=== PATIENT | male | born 1945 | race Caucasian/White ===

== ENCOUNTER 2017-02-08 16:38 | Emergency (ER) | payer MEDICARE, MEDICAID ==
[2017-02-08] MEDS ORDERED: Polyethylene Glycol 3350 Powder 17 GM Packet PO ONE (17:11)
[2017-02-08] MEDS ORDERED: Acetaminophen/oxyCODONE 325-5 MG Tab PO ONE (17:11)
--- NOTE | 2017-02-08 17:22 | EDM.PDOC ---
ED HPI LOWER BACK PAIN/INJURY - General Chief Complaint: Back Pain or Injury Stated Complaint: COMPLETE BACK PAIN Time Seen by Provider: 02/08/17 17:05 Source: Reports: Patient, Old records, Provider History Limitations: Reports: Other (poor historian) - History of Present Illness INITIAL COMMENTS - FREE TEXT/NARRATIVE: 71 yo male was seen in urgent care last Sunday after a fall that resulted in a new L3 compression fx. Was given #20 Percocet tablets with instructions for use. Has taken only 2 tablets since then yet comes into the ER today stating he still has pain now. Last BM 2 days ago. No nausea. Didn't call his primary care provider for follow up. The PHILOSOPHY INSTRUCTOR who saw him had been trying to contact this man for follow up, but he was not answering his phone. She was successful in reaching his daughter who felt he may be drinking heavily of ETOH. Symptom Onset Date: 02/02/17 Timing/Duration: Reports: Day(s): Location: Reports: lower Quality: Reports: Ache Severity: moderate Place: home Improves with: Reports: Rest Worsens with: Reports: Movement Context: Reports: fall Associated Symptoms: Reports: Denies symptoms Treatment(s) CHASER APPRENTICE: Reports: Other (see below) (none) - Related Data Allergies/ADRs: Allergies Allergy/AdvReac Type Severity Reaction Status Date / Time No Known Allergies Allergy Verified 08/10/16 18:16 Home Meds: Home Meds Hydrocodone/Acetaminophen [Hydrocodon-Acetaminophen 5-325] 1 each PO Q4HR PRN # 10 tablet 08/11/16 [Rx] Levofloxacin [Levaquin] 500 mg PO Q24H #10 tablet 08/11/16 [Rx] Past Medical History HEENT History: Reports: Impaired vision Cardiovascular History: Reports: SOB on exertion Respiratory History: Reports: COPD, Pneumonia, recurrent, SOB Gastrointestinal History: Reports: Other (see below) Other Gastrointestinal History: has abdominal surgery not sure why, had some GI + rectal bleeding, Genitourinary History: Reports: Other (see below) Other Genitourinary History: bladder infection 2 years ago Musculoskeletal History: Reports: Arthritis, Back pain, chronic, Other (see below) Other Musculoskeletal History: at times [place] shoulder pain, hx of osteomyelitis Endocrine/Metabolic History: Reports: Osteoporosis Other Endocrine/Metabolic History: had in past - Infectious Disease History Infectious Disease History: Reports: Chicken pox, Measles - Past Surgical History HEENT Surgical History: Reports: Tonsillectomy Cardiovascular Surgical History: Reports: None GI Surgical History: Reports: Other (see below) Other GI Surgeries/Procedures: surg for stomach ulcer, spleenectomy Endocrine Surgical History: Reports: None Other Neurological Surgeries/Procedures: has had lower back surgery Musculoskeletal Surgical History: Reports: Shoulder surgery Other Musculoskeletal Surgeries/Procedures:: rib removal L-lower,jose in back, stanford rotator cuff surgery Social & Family History - Family History HEENT: Reports: Cataract Respiratory: Reports: Asthma Musculoskeletal: Reports: Arthritis Neurological: Reports: None - Tobacco Use Smoking Status *Q: Current Every Day Smoker Years of Tobacco use: 20 Packs/Tins Daily: 1 Used Tobacco, but Quit: No Second Hand Smoke Exposure: Yes - Caffeine Use Caffeine Use: Reports: Coffee - Alcohol Use Days Per Week of Alcohol Use: 1 Number of Drinks Per Day: 2 Total Drinks Per Week: 2 - Recreational Drug Use Recreational Drug Use: No ED ROS GENERAL - Review of Systems Review Of Systems: See Below Constitutional: Reports: no symptoms HEENT: Reports: No symptoms Respiratory: Reports: No Symptoms Cardiovascular: Reports: No symptoms Endocrine: Reports: no symptoms GI/Abdominal: Reports: Constipation (mild) : Reports: no symptoms Musculoskeletal: Reports: back pain (low) Skin: Reports: no symptoms Neurological: Reports: No Symptoms ED EXAM,LOWER BACK PAIN/INJURY - Physical Exam Exam: See Below Exam Limited By: No limitations General Appearance: alert, WD/WN, no apparent distress, other (disheveled) Ears: normal external exam, normal canal, hearing grossly normal Nose: normal inspection, normal mucosa, no blood Throat/Mouth: Normal inspection, Normal lips Head: atraumatic, normocephalic Neck: normal inspection Respiratory/Chest: no respiratory distress, lungs clear, normal breath sounds, no accessory muscle use Cardiovascular: regular rate, rhythm, no edema GI/Abdominal: soft, non tender Back Exam: normal inspection, vertebral tenderness (lumbar spine) Extremities: normal inspection, normal range of motion, non-tender, no pedal edema Neurological: alert, normal mood/affect, CN II-XII intact, no motor/sensory deficits, oriented x 3, other (poor judgement) Psychiatric: normal affect, normal mood Skin Exam: Warm, Dry, Intact, Normal color, No rash Lymphatic: no adenopathy Course - Vital Signs Text/Narrative:: Percocet 1 po, Miralax 1 dose po Social service consult ordered. - Orders/Labs/Meds Orders: Active Orders 24 hr Category Date Time Status Consult to [facility] [CONS] Routine Cons 02/08/17 17:12 Ordered Meds: Medications Discontinued Medications Generic Name Dose Route Start Last Admin Trade Name Herberth PRN Reason Stop Dose Admin Oxycodone/Acetaminophen 1 tab 02/08/17 17:11 Percocet 325-5 Mg PO 02/08/17 17:12 ONETIME ONE Polyethylene Glycol 17 gm 02/08/17 17:11 Miralax PO 02/08/17 17:12 ONETIME ONE Departure - Departure Time of Disposition: 17:30 Disposition: Home, Self-Care 01 Condition: fair Clinical Impression: Poor compliance Compression fx, lumbar spine Qualifiers: Encounter type: subsequent encounter Fracture healing: with routine healing Qualified Code(s): S32.000D - Wedge compression fracture of unspecified lumbar vertebra, subsequent encounter for fracture with routine healing Osteopenia Qualifiers: Osteopenia location: spine Qualified Code(s): M85.88 - Other specified disorders of bone density and structure, other site Referrals: Andrew Quick MD [Primary Care Provider] - Care Plan Goals: Take acetaminophen or Percocet as directed for pain relief. See your doctor tomorrow or Sunday for recheck, call for an appt. A social work program coordinator will be contacting you to see if you need any assistance, please answer the phone if she calls. Take Miralax one dose daily to prevent constipation from your pain medicine. - My Orders Last 24 Hours: My Active Orders 02/08/17 17:12 Consult to [facility] [CONS] Routine - Assessment/Plan Last 24 Hours: My Active Orders 02/08/17 17:12 Consult to [facility] [CONS] Routine
[2017-02-08 18:16] VITALS: BP 173/91
== END 2017-02-08 17:30 | disposition home or self-care (01) ==
LOC: FB.ED 16:38
DX: S32.030D Wedge compression fracture of third lumbar vertebra, subsequent encounter for fracture with routine healing (principal); M85.88 Other specified disorders of bone density and structure, other site; J44.9 Chronic obstructive pulmonary disease, unspecified; Z87.01 Personal history of pneumonia (recurrent); M19.90 Unspecified osteoarthritis, unspecified site; F17.210 Nicotine dependence, cigarettes, uncomplicated; Z98.890 Other specified postprocedural states; W19.XXXD Unspecified fall, subsequent encounter
CPT/HCPCS: 99283; A9270

== ENCOUNTER 2017-11-02 18:12 | Emergency (ER) | payer MEDICARE, MEDICAID ==
[2017-11-02] MEDS ORDERED: Metoprolol Tartrate 25 MG Tab PO ONE (21:50)
[2017-11-02 21:58] VITALS: BP 138/86
--- NOTE | 2017-11-05 12:14 | US ---
INDICATION: Bilateral edema, 3 times normal D-dimer, question DVT. DUPLEX ULTRASOUND, RIGHT LOWER EXTREMITY VEINS: Utilizing 2-D real time, duplex Doppler spectral analysis, and color flow imaging, examination of the right lower extremity veins revealed no evidence of deep venous thrombosis or obstruction. Compression views showed no abnormal lack of compression to suggest thrombosis. No evidence of incompetence of the valves was identified. IMPRESSION: Duplex ultrasound, right lower extremity veins, shows no evidence of deep venous thrombosis or incompetence. DUPLEX ULTRASOUND, LEFT LOWER EXTREMITY VEINS: Utilizing 2-D real time, duplex Doppler spectral analysis, and color flow imaging, examination of the left lower extremity veins revealed no evidence of deep venous thrombosis or obstruction. Compression views showed no abnormal lack of compression to suggest thrombosis. No evidence of incompetence of the valves was identified. IMPRESSION: Duplex ultrasound, left lower extremity veins, shows no evidence of deep venous thrombosis or incompetence. Edematous changes are noted in the calf areas bilaterally, more prominent on the left than right, making it more difficult to see the veins in the calf of the left lower extremity. MTDD
--- NOTE | 2017-11-05 12:21 | CR ---
INDICATION: Bilateral ankle swelling, onset 2 days. Status post splenectomy. CHEST: PA and lateral views of the chest 11/02/2017, compared with 02/01/2017, again revealed a fusion at the thoracolumbar spine, which appears to be grossly intact. There is a compression fracture at the mid thoracic spine which has progressed to a severe compression from a moderate compression on the previous study. The next cranial vertebral body is stable with a mild compression also. Findings compatible with COPD are noted. Pleuroparenchymal changes are again noted at the left lung base, at least a portion of which is likely fibrotic in nature. The possibility of pneumonia and pleuritis at both lung bases, however, cannot be excluded with pleuroparenchymal changes present. These appear to be increased at the left lung base and new at the right costophrenic angle - lung base. The more cranial lung vasquez showed no active infiltrates. The heart is enlarged. The aorta is tortuous and calcified in the arch area. IMPRESSION: 1. Bibasilar pleuroparenchymal changes, which may be on the basis of pneumonia and pleuritis, especially at the right costophrenic angle where the pleuroparenchymal change is new compared with 02/01/2017. 2. COPD. 3. ASHD with cardiomegaly. 4. Osteoporosis with compression fractures, one of which is significantly increased in severity at the mid thoracic spine, compared with the previous study of 02/01/2017. MTDD
--- NOTE | 2017-11-06 11:24 | ER ---
DATE SEEN: 11/02/2017 TIME SEEN: The patient was seen at 1800 hours. HISTORY OF PRESENT ILLNESS: This 72-year-old, who has known previous problem with pyelonephritis, backaches, multiple rib fractures, hospitalized with resection right ribs, status post splenectomy, status post partial stomach resection for ulcer disease, perforation, history of bladder outlet obstruction, compression fracture lumbar spine, osteopenia, and history of poor compliance without allergies, presents with a history of congestion of head and chest 2 to 3 days' duration. He noted the chest discomfort decreased with aspirin. Denies any chest wall discomfort, tachycardia, or shortness of breath. He has no history of history of heart failure or myocardial infarction. He is not on anticoagulants. ALLERGIES: None. MEDICATIONS: Aspirin 650 mg as needed. SOCIAL HISTORY: He smoked 50-pack years. He is still smoking. The patient's is . He is retired. REVIEW OF SYSTEMS: Otherwise negative except as noted above. HEENT: Negative. CARDIORESPIRATORY: As noted. GI: Denies diarrhea, constipation, blood in the stool, black tarry stools, frequency, urgency, or dysuria. MUSCULOSKELETAL: Denies musculoskeletal complaints. No history of thyroid issues. No temperature intolerance or diabetes. PHYSICAL EXAMINATION: VITAL SIGNS: Blood pressure 136/88, heart rate 110, respirations 20, oxygen saturation 97%, and temperature is 36.6 degrees centigrade. GENERAL: The patient looks his age or slightly older, has many nondalton's feet secondary to excessive smoking. HEENT: PERRLA intact. Pharynx without abnormality. Mild fissuring of the tongue, and he has moist mucosa. NECK: Supple. No thyromegaly or masses. No cervical adenopathy. LUNGS: Marked decreased air exchange in lungs. Occasional rales noted. No rhonchi. No wheezes. No chest wall discomfort. HEART: S1, S2. No irregular rate and rhythm. No S3, no S4. ABDOMEN: Soft, previous old scars noted, status post left splenectomy scar on right, midline scar xiphoid to umbilicus, healed without hernia. Right rib chest wall scar posterior to anterior (resection ribs from osteomyelitis). These scars are nontender. No hernia demonstrated. Bowel sounds present and normal. No suprapubic discomfort. EXTREMITIES: Marked edema bilateral. No dysesthesia, but he noticed slight tingling in his left lower extremity compared to the right. Dorsalis pedis pulses decreased. DIAGNOSTIC STUDIES: Ultrasound of bilateral lower extremities is normal. BNP is elevated at 2972. Troponin less than 0.17. Remainder of complete metabolic panel is normal, except for trace elevation of BUN 21, creatinine 0.8, and BUN and creatinine ratio is 26, suggesting dehydration. Mild elevation of AST at 59, ALT is 72; otherwise sodium, potassium, and chloride are normal. The hemoglobin is 12.1, trace elevated; white count is normal at 12,100; and platelets 209,000. PMNs 67, bands 1, lymphocytes 26, monos 4, eosinophils 2, and D-dimer 1230. Because of the patient's elevated D-dimer, ultrasound was performed and the ultrasound is negative. ASSESSMENT: Congestive heart failure, etiology indeterminate. Chest x-ray does not suggest cardiomegaly. He may have decreased ejection fraction - diastolic heart failure. PLAN: Treat for heart failure. He needs to follow up with doctor next week. I will not start with spironolactone but will use small dose of Lasix 20 mg daily and repeat electrolytes and follow up with this next week in 5 to 7 days. The patient to weigh himself daily. If he has an increase weight of 3 to 5 pounds, he should call his doctor immediately. DIAGNOSES: 1. Congestive heart failure. 2. Status post splenectomy, partial stomach resection, and right rib resection for osteomyelitis. 3. Chronic smoking disease, chronic obstructive pulmonary disease with greater than 50-pack years of smoking. 4. Tachycardia, probably secondary to under hydration, etiology indeterminate. No evidence for renal disease. 5. Mild elevation of liver enzymes (I did not ask about alcohol, but he drinks very little alcohol). He has mild liver enzyme changes. EKG is pending. /[id number] YASSINE/ALFREDO
== END 2017-11-02 22:05 | disposition home or self-care (01) ==
LOC: FB.ED 18:12
DX: I50.9 Heart failure, unspecified (principal); J44.9 Chronic obstructive pulmonary disease, unspecified; R00.0 Tachycardia, unspecified; R74.8 Abnormal levels of other serum enzymes; F17.210 Nicotine dependence, cigarettes, uncomplicated; Z90.81 Acquired absence of spleen
CPT/HCPCS: 36415; 71020; 80053; 81001; 83880; 84484; 85025; 85379; 93005; 93970; 99284; A9270; 99213

== ENCOUNTER 2018-03-25 14:53 | Observation (INO) | payer MEDICARE, MEDICAID ==
--- NOTE | 2018-03-25 16:18 | PCM.HP ---
H&P History of Present Illness - General Date of Service: 03/25/18 Admit Problem/Dx: Admission Diagnosis/Problem Admission Diagnosis/Problem New onset atrial fibrillation Source of Information: Patient History Limitations: Reports: No Limitations - History of Present Illness Initial Comments - Free Text/Narative: Lemuel is a 72-year-old male is being admitted directly from the clinic where he was seen for leg swelling,cellulitis. He has taken Cephalexin antibiotic therapy as an outpatient with minimal improvement. The left leg is swollen more than the right. He has severe peripheral vascular disease as well. He has tobacco abuse and is unable to quit. He is otherwise previously healthy with exception COPD years ago. He complains of no systemic symptoms of fever or chills headache nausea vomiting. Atria fibrillation was discovered today in the clinic after auscultation revealed an irregular heart.He denies any chest pain - Related Data Allergies/Adverse Reactions: Allergies Allergy/AdvReac Type Severity Reaction Status Date / Time No Known Allergies Allergy Verified 03/25/18 15:29 Home Medications: Home Meds Aspirin 650 mg PO ASDIRECTED PRN 11/02/17 [History] Ascorbate Calcium [Vitamin C] 500 mg PO DAILY 03/25/18 [History] Cephalexin [Keflex] 500 mg PO TID 03/25/18 [History] Furosemide 40 mg PO 08 03/25/18 [History] Furosemide [Lasix] 20 mg PO 1500 03/25/18 [History] Mupirocin Oint [Bactroban Oint] 1 applic TOP TID 03/25/18 [History] Past Medical History HEENT History: Reports: Impaired Vision Cardiovascular History: Reports: SOB on Exertion Respiratory History: Reports: COPD, Pneumonia, Recurrent, SOB Gastrointestinal History: Reports: Other (See Below) Other Gastrointestinal History: has abdominal surgery not sure why, had some GI + rectal bleeding, Genitourinary History: Reports: Prostate Disorder Other Genitourinary History: bladder infection 2 years ago Musculoskeletal History: Reports: Arthritis, Back Pain, Chronic, Osteoporosis Other Musculoskeletal History: at times [place] shoulder pain, hx of osteomyelitis Endocrine/Metabolic History: Reports: Osteoporosis Other Endocrine/Metabolic History: had in past - Infectious Disease History Infectious Disease History: Reports: Chicken Pox, Measles - Past Surgical History HEENT Surgical History: Reports: Oral Surgery GI Surgical History: Reports: Colonoscopy, Other (See Below) Other GI Surgeries/Procedures: Splenectomy at age 11. States he had stomach surgery in the past. Endocrine Surgical History: Reports: None Other Neurological Surgeries/Procedures: has had lower back surgery Musculoskeletal Surgical History: Reports: Shoulder Surgery, Other (See Below) Other Musculoskeletal Surgeries/Procedures:: States he had surgery for osteomyelitis in back. Social & Family History - Family History HEENT: Reports: Cataract, Impaired Vision Respiratory: Reports: Asthma Musculoskeletal: Reports: Arthritis Neurological: Reports: None - Tobacco Use Smoking Status *Q: Current Every Day Smoker Years of Tobacco use: 50 Packs/Tins Daily: 1 Used Tobacco, but Quit: No Second Hand Smoke Exposure: Yes - Caffeine Use Caffeine Use: Reports: Coffee - Alcohol Use Days Per Week of Alcohol Use: 1 Number of Drinks Per Day: 2 Total Drinks Per Week: 2 - Recreational Drug Use Recreational Drug Use: No H&P Review of Systems - Review of Systems: Review Of Systems: ROS reveals no pertinent complaints other than HPI. Exam - Exam Exam: See Below (He has open wounds and source on the left leg drain purulent material. The legs are extremely tender to palpation.) - Vital Signs Vital Signs: Last Vital Signs Temp 98.5 F 03/25/18 15:04 Pulse 111 H 03/25/18 15:04 Resp 18 03/25/18 15:04 BP 116/78 03/25/18 15:04 Pulse Ox 94 L 03/25/18 15:04 Weight: 67.721 kg - Exam General: Alert HEENT: PERRLA, Hearing Intact, Mucosa Moist & [place], Nares Patent, Normal Nasal Septum, Posterior Pharynx Clear, Conjunctiva Clear, EOMI, EACs Clear, TMs Clear Neck: Supple, Trachea Midline, 2 Lungs: Decreased Breath Sounds Cardiovascular: Irregular Rhythm GI/Abdominal Exam: Normal Bowel Sounds, Soft, Non-Tender, No Organomegaly, No Distention, No Abnormal Bruit, No Mass, Pelvis Stable (Male) Exam: Deferred Rectal (Males) Exam: Deferred Back Exam: Normal Inspection, Full Range of Motion, NT Extremities: Pedal Edema, Leg Pain, Mottled, Redness Skin: Rash, Wound Neurological: Cranial Nerves Intact, Reflexes Equal Bilateral Neuro Extensive - Mental Status: Alert, Oriented x3, Normal Mood/Affect, Normal Cognition Neuro Extensive - Motor, Sensory, Reflexes: CN II-XII Intact, Normal Gait, Normal Reflexes Psychiatric: Alert, Normal Affect, Normal Mood - Patient Data Result Diagrams: 03/26/18 06:25 03/26/18 06:25 EKG INTERPRETATION EKG Date: 03/25/18 Rhythm: A-Fib - Problem List (1) Cellulitis SNOMED Code(s): 973523851 ICD Code: L03.90 - CELLULITIS, UNSPECIFIED Status: Acute Current Visit: Yes Qualifiers: Site of cellulitis: extremity Site of cellulitis of extremity: lower extremity Laterality: left Qualified Code(s): L03.116 - Cellulitis of left lower limb (2) Afib SNOMED Code(s): 73754870 ICD Code: I48.91 - UNSPECIFIED ATRIAL FIBRILLATION Status: Acute Current Visit: Yes Qualifiers: Atrial fibrillation type: unspecified Qualified Code(s): I48.91 - Unspecified atrial fibrillation (3) Leg edema SNOMED Code(s): 617799829 ICD Code: R60.0 - LOCALIZED EDEMA Status: Acute Current Visit: Yes (4) Tobacco abuse SNOMED Code(s): 643110782 ICD Code: Z72.0 - TOBACCO USE Status: Chronic Current Visit: Yes (5) Peripheral vascular disease SNOMED Code(s): 902378825 ICD Code: I73.9 - PERIPHERAL VASCULAR DISEASE, UNSPECIFIED Status: Acute Current Visit: Yes Problem List Initiated/Reviewed/Updated: Yes Orders Last 24hrs: Active Orders 24 hr Category Date Time Status Admission Status [Patient Status] [ADT] Routine ADT 03/25/18 15:24 Active Bedrest Bedside Commode [RC] ASDIRECTED Care 03/25/18 16:12 Ordered Cardiac Monitoring [RC] 08,16,00 Care 03/25/18 15:24 Active Height and Weight [RC] DAILY Care 03/25/18 16:12 Ordered Intake and Output [RC] QSHIFT Care 03/25/18 16:13 Ordered Oxygen Therapy [RC] PRN Care 03/25/18 16:12 Ordered VTE/DVT Education [RC] Per Unit Routine Care 03/25/18 16:12 Ordered Vital Signs [RC] Q8H Care 03/25/18 16:12 Ordered Regular Diet [DIET] Diet 03/25/18 Breakfast Ordered Echo Comp wo Cont [US] Urgent Exams 03/26/18 08:00 Ordered VL Duplex Lwr Ext Veins Ltd Rt [US] Routine Exams 03/25/18 16:12 Ordered CBC WITH AUTO DIFF [HEME] AM Lab 03/26/18 05:11 Ordered COMPREHENSIVE METABOLIC PN,CMP [CHEM] AM Lab 03/26/18 05:11 Ordered PRO B-TYPE NATRIUR PEPT,BNPPRO [CHEM] Urgent Lab 03/25/18 16:12 Ordered SEDIMENTATION RATE MANUAL [HEME] AM Lab 03/26/18 05:11 Ordered TROPONIN I [CHEM] Routine Lab 03/25/18 16:12 Ordered TSH ULTRASENSITIVE [CHEM] Routine Lab 03/25/18 16:12 Ordered Diltiazem [Cardizem CD] Med 03/25/18 16:15 Ordered 120 mg PO DAILY Enoxaparin [Lovenox] Med 03/25/18 16:15 Ordered 30 mg SUBCUT Q24H Piperacillin/Tazobactam [Zosyn] 3.375 gm Med 03/25/18 16:15 Ordered Sodium Chloride 0.9% [Normal Saline] 50 ml IV Q6H Sodium Chloride 0.9% [Saline Flush] Med 03/25/18 16:12 Ordered 10 ml FLUSH ASDIRECTED PRN Peripheral IV Insertion Adult [OM.PC] Routine Oth 03/25/18 16:12 Ordered Resuscitation Status Routine Resus Stat 03/25/18 16:12 Ordered Medication Orders Diltiazem HCl (Cardizem Cd) 120 mg PO DAILY SRAVAN Enoxaparin Sodium (Lovenox) 30 mg SUBCUT Q24H SRAVAN Piperacillin Sod/Tazobactam (Sod 3.375 gm/ Sodium Chloride) 50 mls @ 100 mls/ hr IV Q6H SRAVAN Sodium Chloride (Saline Flush) 10 ml FLUSH ASDIRECTED PRN PRN Reason: Keep Vein Open Assessment/Plan Comment:: I will obtain a TSH echocardiogram and duplex ultrasound of both legs. I'll start the patient Cardizem 120 mg daily, and Zosyn for infection. I will consult physical therapy to help with wound cleaning and dressing and wrapping. Possibly discharge tomorrow because have an appointment with Dr. Maddox a vascular surgeon at [place]
[2018-03-25] MEDS ORDERED: Nicotine 21 MG/24 Hr Patch TRDERM ONE (16:32)
[2018-03-25] MEDS: Diltiazem 120 MG Cap.CD PO SCH (17:04)
[2018-03-25] MEDS: Enoxaparin 30 MG/0.3 ML Syringe SUBCUT SCH (17:05)
[2018-03-25] MEDS: Piperacillin/Tazobactam 3.375 GM in Sodium Chloride 0.9% 50 ML IV SCH ×2 (17:11→23:22)
[2018-03-25] MEDS ORDERED: Aspirin 325 MG Tab.EC PO ONE (21:09)
[2018-03-25] MEDS: Sodium Chloride 0.9% 10 ML Syringe FLUSH PRN (23:25)
[2018-03-26] MEDS: Piperacillin/Tazobactam 3.375 GM in Sodium Chloride 0.9% 50 ML IV SCH ×3 (05:05→17:02)
[2018-03-26] MEDS: Sodium Chloride 0.9% 10 ML Syringe FLUSH PRN ×2 (05:07→09:32)
[2018-03-26] MEDS ORDERED: Acetaminophen 325 MG Tab PO PRN (05:11)
[2018-03-26] MEDS ORDERED: Furosemide 40 MG/4 ML VIAL IVPUSH ONE (08:45)
--- NOTE | 2018-03-26 08:59 | PCM.PN ---
- General Info Date of Service: 03/26/18 Subjective Update: Patient slept well overnight. His ultrasound showed no blood clots in the legs. He denies fever or chills. Functional Status: Reports: Pain Controlled - Review of Systems General: Reports: No Symptoms HEENT: Reports: No Symptoms Pulmonary: Reports: No Symptoms Cardiovascular: Reports: No Symptoms Gastrointestinal: Reports: No Symptoms - Patient Data Vitals - Most Recent: Last Vital Signs Temp 98.1 F 03/26/18 04:00 Pulse 94 03/26/18 04:00 Resp 18 03/26/18 04:00 BP 124/70 03/26/18 04:00 Pulse Ox 91 L 03/26/18 04:00 Weight - Most Recent: 67.721 kg I&O - Last 24 Hours: Intake & Output 03/25/18 03/26/18 03/26/18 22:59 06:59 14:59 Intake Total 960 250 Output Total 525 250 Balance 435 0 Lab Results Last 24 Hours: Laboratory Results - last 24 hr 03/25/18 03/26/18 03/26/18 Range/Units 16:35 06:25 06:25 WBC 9.5 (4.5-12.0) X10-3/uL RBC 4.13 L (4.30-5.75) x10(6)uL Hgb 12.7 (11.5-15.5) g/dL Hct 38.1 (30.0-51.3) % MCV 92.4 (80-96) fL MCH 30.7 (27.7-33.6) pg MCHC 33.2 (32.2-35.4) g/dL RDW 16.6 H (11.5-15.5) % Plt Count 170 (125-369) X10(3)uL MPV 12.8 H (7.4-10.4) fL Neut % (Auto) 71.0 (46-82) % Lymph % (Auto) 20.1 (13-37) % [place] % (Auto) 4.7 (4-12) % Eos % (Auto) 3 (1.0-5.0) % Baso % (Auto) 1 (0-2) % Neut # (Auto) 6.8 (1.6-8.3) # Lymph # (Auto) 1.9 (0.6-5.0) # [place] # (Auto) 0.4 (0.0-1.3) # Eos # (Auto) 0.3 (0.0-0.8) # Baso # (Auto) 0.1 (0.0-0.2) # ESR 12 (0-15) mm/hr Sodium 142 (135-145) mmol/L Potassium 4.2 (3.5-5.3) mmol/L Chloride 107 (100-110) mmol/L Carbon Dioxide 29 (21-32) mmol/L BUN 31 H D (7-18) mg/dL Creatinine 1.0 (0.70-1.30) mg/dL Est Cr Clr Drug Dosing 61.14 mL/min Estimated GFR (MDRD) > 60 (>60) BUN/Creatinine Ratio 31.0 H (9-20) Glucose 99 (80-116) mg/dL Calcium 8.6 (8.6-10.2) mg/dL Total Bilirubin 0.5 (0.1-1.3) mg/dL AST 26 H D (5-25) IU/L ALT 34 D (12-36) U/L Alkaline Phosphatase 74 (56-112) IU/L Troponin I 0.031 (<0.017-0.056) ng/mL NT-Pro-B Natriuret Pep 2337 H* (<=125) pg/mL Total Protein 6.7 (6.0-8.0) g/dL Albumin 2.9 L (3.2-4.6) g/dL Globulin 3.8 g/dL Albumin/Globulin Ratio 0.8 TSH, Ultra Sensitive 1.36 (0.36-3.74) IU/mL Med Orders - Current: Current Medications Acetaminophen (Tylenol) 650 mg PO Q4H PRN PRN Reason: Pain Last Admin: 03/26/18 05:31 Dose: 650 mg Diltiazem HCl (Cardizem Cd) 120 mg PO DAILY [facility] Last Admin: 03/25/18 17:04 Dose: 120 mg Enoxaparin Sodium (Lovenox) 30 mg SUBCUT Q24H SRAVAN Last Admin: 03/25/18 17:05 Dose: 30 mg Piperacillin Sod/Tazobactam (Sod 3.375 gm/ Sodium Chloride) 50 mls @ 100 mls/ hr IV Q6H [facility] Last Admin: 03/26/18 05:05 Dose: 100 mls/hr Sodium Chloride (Saline Flush) 10 ml FLUSH ASDIRECTED PRN PRN Reason: Keep Vein Open Last Admin: 03/26/18 05:07 Dose: 10 ml Discontinued Medications Aspirin (Ecotrin) 650 mg PO ONETIME ONE Stop: 03/25/18 21:10 Last Admin: 03/25/18 21:23 Dose: 650 mg Furosemide (Lasix) 40 mg IVPUSH NOW ONE Stop: 03/26/18 08:46 Nicotine (Habitrol) 21 mg TRDERM ONETIME ONE Stop: 03/25/18 16:33 Last Admin: 03/25/18 17:10 Dose: 21 mg - Exam General: Alert Lungs: Rales Cardiovascular: Irregular Rhythm Extremities: Pedal Edema, Leg Pain, Mottled, Redness - Problem List & Annotations (1) Cellulitis SNOMED Code(s): 950480654 Code(s): L03.90 - CELLULITIS, UNSPECIFIED Status: Acute Current Visit: Yes Qualifiers: Site of cellulitis: extremity Site of cellulitis of extremity: lower extremity Laterality: left Qualified Code(s): L03.116 - Cellulitis of left lower limb (2) Afib SNOMED Code(s): 23693979 Code(s): I48.91 - UNSPECIFIED ATRIAL FIBRILLATION Status: Acute Current Visit: Yes Qualifiers: Atrial fibrillation type: unspecified Qualified Code(s): I48.91 - Unspecified atrial fibrillation (3) Leg edema SNOMED Code(s): 186822085 Code(s): R60.0 - LOCALIZED EDEMA Status: Acute Current Visit: Yes (4) Tobacco abuse SNOMED Code(s): 465089051 Code(s): Z72.0 - TOBACCO USE Status: Chronic Current Visit: Yes (5) Peripheral vascular disease SNOMED Code(s): 372292182 Code(s): I73.9 - PERIPHERAL VASCULAR DISEASE, UNSPECIFIED Status: Acute Current Visit: Yes (6) Dyspnea SNOMED Code(s): 437679212 Code(s): R06.00 - DYSPNEA, UNSPECIFIED Status: Acute Current Visit: Yes - Problem List Review Problem List Initiated/Reviewed/Updated: Yes - My Orders Last 24 Hours: My Active Orders 03/25/18 15:24 Admission Status [Patient Status] [ADT] Routine Cardiac Monitoring [RC] 08,16,00 03/25/18 16:12 Bedrest Bedside Commode [RC] ASDIRECTED Height and Weight [RC] 06 Oxygen Therapy [RC] PRN Vital Signs [RC] 08,16,00 Sodium Chloride 0.9% [Saline Flush] 10 ml FLUSH ASDIRECTED PRN Peripheral IV Insertion Adult [OM.PC] Routine Resuscitation Status Routine 03/25/18 16:13 Intake and Output [RC] 06,14,03/25/18 16:15 Diltiazem [Cardizem CD] 120 mg PO DAILY Enoxaparin [Lovenox] 30 mg SUBCUT Q24H 03/25/18 17:00 Piperacillin/Tazobactam [Zosyn] 3.375 gm Sodium Chloride 0.9% [Normal Saline] 50 ml IV Q6H 03/26/18 05:11 Acetaminophen [Tylenol] 650 mg PO Q4H PRN 03/26/18 08:00 Echo Comp wo Cont [US] Urgent VL Duplex Lwr Ext Veins Ltd Rt [US] Routine - Plan Plan:: His BNP is high, he has an echocardiogram later today.I will give him Lasix 40 mg IV 1 dose. He'll get 2 more doses of IV Zosyn today and this evening after his last dose of discharging home to make his appointment for surgery tomorrow. Discontinue telemetry meanwhile.
[2018-03-26] MEDS: Diltiazem 120 MG Cap.CD PO SCH (09:23)
--- NOTE | 2018-03-26 10:49 | US ---
INDICATION: Rule out DVT. DUPLEX ULTRASOUND, RIGHT LOWER EXTREMITY VEINS: Utilizing 2-D real time, duplex Doppler spectral analysis, and color flow imaging, examination of the right lower extremity veins revealed no evidence of deep venous thrombosis or obstruction. Compression views showed no abnormal lack of compression to suggest thrombosis. Valvular competence was not evaluated due to patient condition. IMPRESSION: Duplex ultrasound, right lower extremity veins, shows no evidence of deep venous thrombosis. DUPLEX ULTRASOUND, LEFT LOWER EXTREMITY VEINS: Utilizing 2-D real time, duplex Doppler spectral analysis, and color flow imaging, examination of the left lower extremity veins revealed no evidence of deep venous thrombosis or obstruction. Compression views showed no abnormal lack of compression to suggest thrombosis. Valvular competence was not evaluated due to patient condition. The examination was curtailed by bandages on the lower two-thirds of the left calf. IMPRESSION: Duplex ultrasound, left lower extremity veins, shows no evidence of deep venous thrombosis. [facility]
[2018-03-26] MEDS: Enoxaparin 30 MG/0.3 ML Syringe SUBCUT SCH (17:00)
[2018-03-27 00:06] VITALS: BP 120/68
--- NOTE | 2018-03-27 05:10 | DISCH ---
DISCHARGE DATE: 03/26/2018 REASON FOR ADMISSION: 1. Cellulitis, lower extremities. 2. Atrial fibrillation, new onset. 3. Edema of the legs. 4. Shortness of breath, chronic. 5. Peripheral vascular disease. 6. Tobacco abuse. DISCHARGE DIAGNOSES: 1. Cellulitis, lower extremities. 2. Atrial fibrillation, new onset. 3. Edema of the legs. 4. Shortness of breath, chronic. 5. Peripheral vascular disease. 6. Tobacco abuse. 7. Congestive heart failure. PROCEDURES: 1. Ultrasound of lower extremities, duplex negative for deep vein thrombosis. 2. Echocardiogram showed atrial fibrillation, mild regurgitation of the tricuspid valve, and ejection fraction of 35% to 40%. BRIEF HISTORY AND HOSPITAL COURSE: A 72-year-old, admitted with leg swelling, bilateral, left worse with pain and redness after failing outpatient cephalexin therapy. He was given Zosyn. Elevation was instituted. The echocardiogram revealed CHF. He was given 40 mg of IV Lasix and was rate controlled with diltiazem 120 mg daily. Even though he is a good candidate for anticoagulation, this was deferred to the PCP. The patient was discharged early because he has an appointment on Sunday morning for an ultrasound with [facility] [place]. MEDICATIONS: I discharged him on the following medications: 1. Lasix 40 mg b.i.d. orally. 2. Diltiazem 110 mg daily, sustained release. 3. Aspirin 325 mg daily. 4. Doxycycline 100 mg b.i.d. 5. Ciprofloxacin 500 mg p.o. b.i.d. FOLLOWUP: Followup was arranged with KORINA Hooker, at the clinic on Thursday, March 29, 2018. /[id number] ALISIA/ALFREDO
== END 2018-03-26 18:55 | disposition home or self-care (01) ==
LOC: FB.MS 14:53
PROVIDERS: ADMIT Family Medicine; ATTEND Family Medicine
DX: L03.116 Cellulitis of left lower limb (principal); L03.115 Cellulitis of right lower limb; I48.91 Unspecified atrial fibrillation; I73.9 Peripheral vascular disease, unspecified; F17.210 Nicotine dependence, cigarettes, uncomplicated; I50.9 Heart failure, unspecified; J44.9 Chronic obstructive pulmonary disease, unspecified; M19.90 Unspecified osteoarthritis, unspecified site; M81.0 Age-related osteoporosis without current pathological fracture; Z79.899 Other long term (current) drug therapy
CPT/HCPCS: 36415; 80053; 83880; 84443; 84484; 85025; 85651; 93306; 93970; A9270; J1650; J1940; J2543; J7050; 96365; 96366; 96372; 96375; 96376; G0378; G0379

== ENCOUNTER 2018-04-07 14:57 | Emergency (ER) | payer MEDICARE, MEDICAID ==
[2018-04-07] MEDS ORDERED: Albuterol/Ipratropium 3.0-0.5 MG/3 ML Neb Soln NEB ONE (16:10)
[2018-04-07] MEDS ORDERED: Levofloxacin 750 MG Tab PO SCH (16:15)
[2018-04-07 22:42] VITALS: BP 127/85
--- NOTE | 2018-04-08 13:13 | ER ---
DATE SEEN: 04/07/2018 TIME SEEN: The patient was seen at 1540. CHIEF COMPLAINT: Cough, shortness of breath and intermittent chest pain. 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 He has been treated by Dr. Vega at [place] for chronic cellulitis in his left lower leg and has special wrap on his leg that she follows with him. Because of his chronic obstructive lung disease, he states he has not had prednisone for a year. The chest discomfort, he relates this is secondary to chest wall discomfort. He denies palpitations or lightheadedness, syncope, near-syncope, or back pain. PAST MEDICAL HISTORY: 1. Atrial fibrillation. 2. Multiple right rib fractures with resection of two ribs after he had osteomyelitis from back surgery resulting in resection of two ribs. 3. Osteopenia. 4. Poor compliance. 5. COPD. 6. [id number] smoker. 7. Peripheral artery disease with documented normal venous without venous incompetence per documentation of ultrasound. 8. Hypertension. 9. Chronic intermittent tachycardia (atrial fibrillation). 10.History of fall in 2017 resulting in T8 compression fraction, other T9-T10 compression fracture, L3 compression fracture. 11.Presbycusis. 12.History of poor urinary stream. 13.Bladder outlet problems with history of also urinary tract infections. PAST SURGICAL HISTORY: 1. Left splenectomy. 2. Resection of right 2 ribs secondary to back surgery, osteomyelitis, and resultant rib osteomyelitis. 3. T and A. 4. Bilateral shoulder surgery. MEDICATIONS: For atrial fibrillation and hypertension; 1. Diltiazem. 2. Aspirin. 3. Vitamin C. 4. Lasix 40 b.i.d. ALLERGIES: None. REVIEW OF SYSTEMS: See HPI above. Most notable presbycusis, asthenia, previous history of gastric ulcer, gastric ulcer surgery, splenectomy. Denies constipation, blood in the stool, black tarry stool, diarrhea, partial bladder outlet obstruction with resultant dribbling intermittently and mild incontinence. Does not use TENS, bilateral upper and lower extremity arthritis with bilateral shoulder surgeries for rotator cuff abnormality. Neuro, negative. PHYSICAL EXAMINATION: VITAL SIGNS: Blood pressure 102/79; heart rate 81 at one time, is up to 160s and then abruptly came down. I think that was aberrant registration on the pulse monitor secondary to movement; respirations 18; oxygen saturation 96%; temperature is 37.6 degrees. Weight 68.039 kg with BMI 24.2 kg/m2. Repeat blood pressure is 127/85, heart rate 68, respirations 21, respiratory rate, 95% oxygen saturation on room air. CONSTITUTION: The patient is asthenic. He has marked cher-ae heights's feet and moderate angular features secondary to loss of subcutaneous from his smoking (50 pack years). HEENT: Hearing slightly decreased. EOMs normal. Pharynx, some mild drying. Mild fissuring of the tongue. No thickening of the tongue. NECK: No bruits. No thyromegaly. No masses. S2 is noted to be slightly louder than S1. LUNGS: Bilateral rales noted in the lungs, anterior and posterior. HEART: S1, S2. No murmur. Sinus tachycardia noted. Heart rate 110, has come down from previous annotation. CHEST: Absent ribs, right side, with thoracotomy (rib resection scar). ABDOMEN: Midline scar from xiphoid to the umbilicus and left splenectomy scar noted. No hernias noted. Abdomen is nontender. Bowel sounds present. Normal. No distention. No inguinal abnormalities. EXTREMITIES: Negative lower extremities. No pedal edema. Left lower extremity is wrapped with very carefully wrapped dressing that his process specialist has been following - Dr. Vega at [place]. No erythema proximal and distal to this wrap. The wrap is not removed. Dorsalis pedis intact, slightly decreased. No acrocyanosis. ASSESSMENT: 1. Pneumonia. 2. Patient currently on antibiotics Amoxil for his lower extremity infection and he has had one more day of antibiotics. 3. Chronic obstructive lung disease with [id number] smoking. 4. Peripheral artery disease secondary to atherosclerosis and without venous insufficiency, but currently being treated for left lower leg cellulitis by Dr. Vega, a process specialist at [place]. 5. Hypertension. 6. 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 Concern for compression fracture of the spine, T8, L3. 7. Tonsillectomy with adenoidectomy. 8. Splenectomy. 9. Gastric ulcer resection. 10.Bilateral shoulder surgeries. 11.Back surgeries. Thomas was placed at one time (has been removed). 12.Chronic low back pain. 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 PLAN: Patient will be started on Levaquin. Use DuoNeb 6 times a day (every 4 hours). He has appointment with Maria Eugenia More on 04/16, followup earlier if he is not improving. /[id number] YASSINE/EVELINAL
--- NOTE | 2018-04-09 03:48 | ER ---
DATE SEEN: 04/07/2018 EKG REPORT Sinus tachycardia with a regular rate. On arrival, heart rate 167 with right bundle-branch block. /[id number] YASSINE/ALFREDO
== END 2018-04-07 16:58 | disposition home or self-care (01) ==
LOC: FB.ED 14:57
DX: J18.9 Pneumonia, unspecified organism (principal); J44.9 Chronic obstructive pulmonary disease, unspecified; F17.210 Nicotine dependence, cigarettes, uncomplicated; I70.90 Unspecified atherosclerosis; I73.9 Peripheral vascular disease, unspecified; I10 Essential (primary) hypertension; M54.5 Low back pain; N40.0 Benign prostatic hyperplasia without lower urinary tract symptoms; K52.9 Noninfective gastroenteritis and colitis, unspecified; Z98.890 Other specified postprocedural states; I48.91 Unspecified atrial fibrillation
CPT/HCPCS: 93005; 94640; 99284; A9270; J7620

== ENCOUNTER 2018-04-20 16:52 | Inpatient (IN) | payer MEDICARE, MEDICAID ==
[2018-04-20] MEDS ORDERED: methylPREDNISolone Sodium Succinate 125 MG/2 ML SDV IVPUSH ONE (17:00)
[2018-04-20] MEDS ORDERED: Albuterol/Ipratropium 3.0-0.5 MG/3 ML Neb Soln NEB ONE (17:00)
[2018-04-20] MEDS: Sodium Chloride 0.9% 10 ML Syringe FLUSH PRN (17:30)
[2018-04-20] MEDS ORDERED: Sodium Chloride 0.9% 500 ML IV ONE (17:45)
[2018-04-20] MEDS ORDERED: Levofloxacin/Dextrose 5%-Water 750 MG in Premix Bag 1 BAG IV ONE (18:52)
--- NOTE | 2018-04-20 19:49 | EDM.PDOC ---
ED HPI GENERAL MEDICAL PROBLEM - General Chief Complaint: Respiratory Problem Stated Complaint: SHORT OF BREATH Time Seen by Provider: 04/20/18 17:00 Source of Information: Reports: Patient History Limitations: Reports: Physical Impairment, Respiratory Distress - History of Present Illness INITIAL COMMENTS - FREE TEXT/NARRATIVE: 72 y.o.w.m -smoker- H/O COPD, Pneumonia, Lower extremities edema/cellulitis, came to the ed by himself deu to SOB and weakness, unable to take care for himself. Pt was d/c'd from this Hospital 2 weeks ago for pneumonia. Pt was a former ETOH abuser. He is a poor historian. No N/V/D, has poor poor intake. BP : 116/95 HR 148 Temp 37.3 RR 28 O2 sat 96% on RA Onset Date: 04/07/18 Onset Time: 08:00 Duration: Day(s):, Week(s):, Getting Worse, Intermittent Location: Reports: Chest Quality: Reports: Same as Previous Episode Severity: Moderate Improves with: Reports: Rest Worsens with: Reports: Movement Context: Reports: Sick Contact Associated Symptoms: Reports: Cough, Fever/Chills, Loss of Appetite, Rash, Shortness of Breath, Weakness - Related Data Allergies Allergy/AdvReac Type Severity Reaction Status Date / Time No Known Allergies Allergy Verified 04/20/18 18:07 Home Meds: Home Meds Aspirin 650 mg PO DAILY 11/02/17 [History] Ascorbate Calcium [Vitamin C] 500 mg PO BID 03/25/18 [History] Furosemide 40 mg PO BID #60 tablet 03/26/18 [Rx] Albuterol/Ipratropium [DuoNeb 3.0-0.5 MG/3 ML] 3 ml .XX QID #1 box 04/07/18 [Rx] Budesonide/Formoterol Fumarate [Symbicort 80-4.5 Mcg Inhaler] 2 puff IH BID [History] Metoprolol Succinate 50 mg PO DAILY 04/20/18 [History] Past Medical History HEENT History: Reports: Impaired Vision Cardiovascular History: Reports: SOB on Exertion Respiratory History: Reports: COPD, Pneumonia, Recurrent, SOB Gastrointestinal History: Reports: Other (See Below) Other Gastrointestinal History: Hx abdominal surgery not sure why. Hx GI + rectal bleeding, Genitourinary History: Reports: Prostate Disorder Other Genitourinary History: Hx bladder infection 2 years ago. Musculoskeletal History: Reports: Arthritis, Back Pain, Chronic, Osteoporosis Other Musculoskeletal History: Hx bilateral shoulder discomfort. Hx of osteomyelitis of back. Neurological History: Reports: None Endocrine/Metabolic History: Reports: Osteoporosis Other Endocrine/Metabolic History: had in past Dermatologic History: Reports: Other (See Below) Other Dermatologic History: Hx cellulitis of lower legs. - Infectious Disease History Infectious Disease History: Reports: Chicken Pox, Measles - Past Surgical History HEENT Surgical History: Reports: Oral Surgery GI Surgical History: Reports: Colonoscopy, Other (See Below) Other GI Surgeries/Procedures: Hx splenectomy at age 11. Musculoskeletal Surgical History: Reports: Shoulder Surgery, Other (See Below) Other Musculoskeletal Surgeries/Procedures:: States he had surgery for osteomyelitis in back, has plates and screws, ribs removed. Social & Family History - Family History HEENT: Reports: Cataract, Impaired Vision Respiratory: Reports: Asthma Musculoskeletal: Reports: Arthritis Neurological: Reports: None - Tobacco Use Smoking Status *Q: Current Every Day Smoker Years of Tobacco use: 50 Packs/Tins Daily: 1 - Caffeine Use Caffeine Use: Reports: Coffee ED ROS GENERAL - Review of Systems Review Of Systems: See Below Constitutional: Reports: Chills, Weakness, Decreased Appetite, Weight Loss HEENT: Reports: No Symptoms Respiratory: Reports: Shortness of Breath, Cough, Sputum Cardiovascular: Reports: Palpitations Endocrine: Reports: No Symptoms GI/Abdominal: Reports: No Symptoms : Reports: No Symptoms Musculoskeletal: Reports: Other (muscle weakness) Skin: Reports: Rash, Erythema (lower extremities) Neurological: Reports: No Symptoms Psychiatric: Reports: No Symptoms Hematologic/Lymphatic: Reports: No Symptoms Immunologic: Reports: No Symptoms ED EXAM, GENERAL - Physical Exam Exam: See Below Exam Limited By: Respiratory Distress General Appearance: Alert, Moderate Distress, Cachetic Eye Exam: Bilateral Eye: Normal Inspection Ears: Normal External Exam, Normal Canal Ear Exam: Bilateral Ear: Auricle Normal Nose: Normal Inspection, Normal Mucosa Throat/Mouth: Normal Lips, Normal Voice, No Airway Compromise, Other (poor dentition) Head: Atraumatic, Normocephalic Neck: Normal Inspection, Supple, Non-Tender, Full Range of Motion Respiratory/Chest: Respiratory Distress, Decreased Breath Sounds (RLL of lung) Cardiovascular: Tachycardia Peripheral Pulses: 1+: Brachial (R) GI/Abdominal: Distended (old new) (Male) Exam: Deferred Rectal (Males) Exam: Deferred Back Exam: Normal Inspection Extremities: Redness, Other (lower leg ) Neurological: Alert, Oriented, CN II-XII Intact, Normal Cognition, Abnormal Gait (due to lower leg pain) Psychiatric: Normal Affect, Normal Mood Skin Exam: Warm, Dry, Erythema, Rash ([place] lower extremities) Lymphatic: No Adenopathy EKG INTERPRETATION EKG Date: 04/20/18 Time: 17:05 Rhythm: NSR Rate (Beats/Min): 154 [place]: Normal P-Wave: Present QRS: Normal ST-T: Normal QT: Normal Comparison: NA - No Prior EKG Course - Vital Signs Text/Narrative:: 72 y.o.w.m -smoker- H/O COPD, Pneumonia, Lower extremities edema/cellulitis, came to the ed by himself deu to SOB and weakness, unable to take care for himself. Pt was d/c'd from this Hospital 2 weeks ago for pneumonia. Pt was a former ETOH abuser. He is a poor historian. No N/V/D, has poor poor intake. BP : 116/95 HR 148 Temp 37.3 RR 28 O2 sat 96% on RA PE: Cachectic 72 y.o.w m with multiple medical issues came by PC (?)to the ed due to SOB and Weakness Labs: CBC 19.5K H/H 13.9/43.3 Lactic acid 1.8 GFR > 60 BUN 28 Cr. 1.0 BUN/CR ratio elevated. BUN 6345 Imaging: Infiltrate RLL of lung Impression: RLL infiltrate/pneumonia, Bilateral Lower leg cellulitis. lymphedema left > then right lower leg. COPD exacerbation. Cachexia, Poor dentition, Dehydration, Sinus tachycardia with arrhythmia, dehydration, poor hygiene. Tx: NS, Levoquine and Vancomycin. Duoneb, Solumedrol, Reexam: Improved, pt could breath better, pt's pulse impoved to 121 while her in the ed 6.59 pm: Consultation: Dr. Velez, Hospitalist: Accepted the pt to be admitted to inpatient with tele 7.32 pm Pt's daughter called and was informed 2.14 am: Addendum Pt had 2 NSVT runs, DDx: [place], Mg was 1.7, pt was non symptomatic during that episode. 2 gm of Mg were given over 60 minutes. Last Recorded V/S: Last Vital Signs Temp 36.6 C 04/21/18 04:00 Pulse 116 H 04/21/18 04:00 Resp 22 H 04/21/18 04:00 BP 131/88 04/21/18 04:00 Pulse Ox 97 04/21/18 04:00 - Orders/Labs/Meds Orders: Active Orders 24 hr Category Date Time Status Patient Status [ADT] Routine ADT 04/20/18 19:44 Active Cardiac Monitoring [RC] CONTINUOUS Care 04/20/18 19:47 Active Oxygen Therapy [RC] PRN Care 04/20/18 19:44 Active Pulse Oximetry [RC] CONTINUOUS Care 04/20/18 19:47 Active RT Aerosol Therapy [RC] ASDIRECTED Care 04/20/18 17:00 Active Up With Assistance [RC] ASDIRECTED Care 04/20/18 19:43 Active VTE/DVT Education [RC] Per Unit Routine Care 04/20/18 19:44 Active Vital Signs [RC] 00,04,08,12,16,20 Care 04/20/18 19:44 Active Chest 1V Frontal [CR] Stat Exams 04/20/18 17:00 Taken CULTURE BLOOD [BC] Urgent Lab 04/20/18 17:15 Received CULTURE BLOOD [BC] Urgent Lab 04/20/18 17:20 Received Nicotine [Habitrol] Med 04/21/18 09:00 Active 21 mg TRDERM DAILY Sodium Chloride 0.9% [Saline Flush] Med 04/20/18 17:30 Active 10 ml FLUSH ASDIRECTED PRN Blood Culture x2 Reflex Set [OM.PC] Urgent Oth 04/20/18 17:02 Ordered Resuscitation Status Routine Resus Stat 04/20/18 19:43 Ordered EKG 12 Lead [EK] Routine Ther 04/20/18 17:01 Ordered Medication Orders Albuterol/Ipratropium (Duoneb 3.0-0.5 Mg/3 Ml) 3 ml NEB Q4H PRN PRN Reason: Shortness of Breath Last Admin: 04/21/18 07:34 Dose: 3 ml Sodium Chloride (Normal Saline) 1,000 mls @ 125 mls/hr IV ASDIRECTED SRAVAN Last Admin: 04/20/18 22:18 Dose: 125 mls/hr Sodium Chloride (Normal Saline) 1,000 mls @ 125 mls/hr IV ASDIRECTED SRAVAN Methylprednisolone Sodium Succinate (Solu-Medrol) 125 mg IVPUSH Q8H SRAVAN Last Admin: 04/21/18 01:33 Dose: 125 mg Nicotine (Habitrol) 21 mg TRDERM DAILY [facility] Sodium Chloride (Saline Flush) 10 ml FLUSH ASDIRECTED PRN PRN Reason: Keep Vein Open Last Admin: 04/21/18 01:34 Dose: 10 ml Admin: 04/20/18 17:30 Dose: 10 ml Labs: Laboratory Tests 04/20/18 04/20/18 04/20/18 Range/Units 17:20 17:20 17:20 WBC 19.2 H (4.5-12.0) X10-3/uL RBC 4.79 (4.30-5.75) x10(6)uL Hgb 13.9 (11.5-15.5) g/dL Hct 43.3 (30.0-51.3) % MCV 90.5 (80-96) fL MCH 29.1 (27.7-33.6) pg MCHC 32.2 (32.2-35.4) g/dL RDW 15.2 (11.5-15.5) % Plt Count 229 (125-369) X10(3)uL MPV 13.0 H (7.4-10.4) fL Add Manual Diff Yes Neutrophils % (Manual) 88 H (46-82) % Lymphocytes % (Manual) 7 L (13-37) % Monocytes % (Manual) 5 (4-12) % Sodium 138 (135-145) mmol/L Potassium 4.1 (3.5-5.3) mmol/L Chloride 102 D (100-110) mmol/L Carbon Dioxide 26 (21-32) mmol/L BUN 28 H (7-18) mg/dL Creatinine 1.0 (0.70-1.30) mg/dL Est Cr Clr Drug Dosing TNP Estimated GFR (MDRD) > 60 (>60) BUN/Creatinine Ratio 28.0 H (9-20) Glucose 117 H (80-116) mg/dL Lactic Acid 1.8 (0.4-2.2) mmol/L Calcium 9.1 (8.6-10.2) mg/dL Troponin I (<0.017-0.056) ng/mL NT-Pro-B Natriuret Pep (<=125) pg/mL 04/20/18 04/20/18 Range/Units 17:20 17:45 WBC (4.5-12.0) X10-3/uL RBC (4.30-5.75) x10(6)uL Hgb (11.5-15.5) g/dL Hct (30.0-51.3) % MCV (80-96) fL MCH (27.7-33.6) pg MCHC (32.2-35.4) g/dL RDW (11.5-15.5) % Plt Count (125-369) X10(3)uL MPV (7.4-10.4) fL Add Manual Diff Neutrophils % (Manual) (46-82) % Lymphocytes % (Manual) (13-37) % Monocytes % (Manual) (4-12) % Sodium (135-145) mmol/L Potassium (3.5-5.3) mmol/L Chloride (100-110) mmol/L Carbon Dioxide (21-32) mmol/L BUN (7-18) mg/dL Creatinine (0.70-1.30) mg/dL Est Cr Clr Drug Dosing Estimated GFR (MDRD) (>60) BUN/Creatinine Ratio (9-20) Glucose (80-116) mg/dL Lactic Acid (0.4-2.2) mmol/L Calcium (8.6-10.2) mg/dL Troponin I 0.017 (<0.017-0.056) ng/mL NT-Pro-B Natriuret Pep 6822 H* (<=125) pg/mL Meds: Medications Generic Name Dose Route Start Last Admin Trade Name Freq PRN Reason Stop Dose Admin Albuterol/Ipratropium 3 ml 04/20/18 21:39 04/21/18 07:34 Duoneb 3.0-0.5 Mg/3 Ml NEB 3 ml Q4H PRN Administration Shortness of Breath Sodium Chloride 1,000 mls @ 125 mls/hr 04/20/18 21:45 04/20/18 22:18 Normal Saline IV 125 mls/hr ASDIRECTED SRAVAN Administration Sodium Chloride 1,000 mls @ 125 mls/hr 04/20/18 23:00 Normal Saline IV ASDIRECTED SRAVAN Methylprednisolone Sodium Succinate 125 mg 04/21/18 01:00 04/21/18 01:33 Solu-Medrol IVPUSH 125 mg Q8H SRAVAN Administration Nicotine 21 mg 04/21/18 09:00 Habitrol TRDERM DAILY SRAVAN Sodium Chloride 10 ml 04/20/18 17:30 04/21/18 01:34 Saline Flush FLUSH 10 ml ASDIRECTED PRN Administration Keep Vein Open Discontinued Medications Generic Name Dose Route Start Last Admin Trade Name Freq PRN Reason Stop Dose Admin Albuterol/Ipratropium 3 ml 04/20/18 17:00 04/20/18 17:32 Duoneb 3.0-0.5 Mg/3 Ml NEB 04/20/18 17:01 3 ml ONETIME ONE Administration Sodium Chloride 500 mls @ 999 mls/hr 04/20/18 17:45 04/20/18 17:50 Normal Saline IV 04/20/18 18:15 999 mls/hr .BOLUS ONE Administration Levofloxacin/Dextrose 750 mg/ 150 mls @ 100 mls/hr 04/20/18 18:52 04/20/18 20 :54 Premix IV 04/20/18 20:21 100 mls/hr ONETIME ONE Administration Levofloxacin/Dextrose Confirm 04/20/18 20:51 04/20/18 21:57 Levaquin In D5w 750 Mg/150 Ml Administered 04/20/18 20:52 Not Given Dose 150 mls @ as directed IV .STK-MED ONE Vancomycin HCl 1,500 mg/ 250 mls @ 167 mls/hr 04/20/18 22:45 Sodium Chloride IV 04/21/18 00:14 ONETIME STA Vancomycin HCl 1,500 mg/ 500 mls @ 334.014 mls/hr 04/20/18 23:13 Sodium Chloride IV 04/21/18 00:14 ONETIME STA Vancomycin HCl 1,500 mg/ 500 mls @ 334.014 mls/hr 04/20/18 23:32 04/20/18 23: 33 Sodium Chloride IV 04/21/18 01:01 334.014 mls/hr ONETIME STA Administration Magnesium Sulfate 2 gm/ Premix 50 mls @ 100 mls/hr 04/21/18 02:30 04/21/18 02 :33 IV 04/21/18 02:59 100 mls/hr ONETIME ONE Administration Methylprednisolone Sodium Succinate 125 mg 04/20/18 17:00 04/20/18 17:25 Solu-Medrol IVPUSH 04/20/18 17:01 125 mg ONETIME ONE Administration Methylprednisolone Sodium Succinate 125 mg 04/20/18 21:45 Solu-Medrol IVPUSH Q8H SRAVAN Departure - Departure Time of Disposition: 19:45 Disposition: Admitted As Inpatient 67 Condition: Fair Clinical Impression: Pneumonia - Discharge Information - My Orders Last 24 Hours: My Active Orders 04/20/18 17:00 RT Aerosol Therapy [RC] ASDIRECTED Chest 1V Frontal [CR] Stat 04/20/18 17:01 EKG 12 Lead [EK] Routine 04/20/18 17:02 Blood Culture x2 Reflex Set [OM.PC] Urgent 04/20/18 17:15 CULTURE BLOOD [BC] Urgent 04/20/18 17:20 CULTURE BLOOD [BC] Urgent 04/20/18 17:30 Sodium Chloride 0.9% [Saline Flush] 10 ml FLUSH ASDIRECTED PRN 04/20/18 19:43 Up With Assistance [RC] ASDIRECTED Resuscitation Status Routine 04/20/18 19:44 Patient Status [ADT] Routine Oxygen Therapy [RC] PRN VTE/DVT Education [RC] Per Unit Routine Vital Signs [RC] 00,04,08,12,16,20 04/20/18 19:47 Cardiac Monitoring [RC] CONTINUOUS Pulse Oximetry [RC] CONTINUOUS 04/21/18 09:00 Nicotine [Habitrol] 21 mg TRDERM DAILY - Assessment/Plan Last 24 Hours: My Active Orders 04/20/18 17:00 RT Aerosol Therapy [RC] ASDIRECTED Chest 1V Frontal [CR] Stat 04/20/18 17:01 EKG 12 Lead [EK] Routine 04/20/18 17:02 Blood Culture x2 Reflex Set [OM.PC] Urgent 04/20/18 17:15 CULTURE BLOOD [BC] Urgent 04/20/18 17:20 CULTURE BLOOD [BC] Urgent 04/20/18 17:30 Sodium Chloride 0.9% [Saline Flush] 10 ml FLUSH ASDIRECTED PRN 04/20/18 19:43 Up With Assistance [RC] ASDIRECTED Resuscitation Status Routine 04/20/18 19:44 Patient Status [ADT] Routine Oxygen Therapy [RC] PRN VTE/DVT Education [RC] Per Unit Routine Vital Signs [RC] 00,04,08,12,16,20 04/20/18 19:47 Cardiac Monitoring [RC] CONTINUOUS Pulse Oximetry [RC] CONTINUOUS 04/21/18 09:00 Nicotine [Habitrol] 21 mg TRDERM DAILY
[2018-04-20] MEDS ORDERED: Levofloxacin/Dextrose 5%-Water 150 ML IV ONE (20:51)
[2018-04-20] MEDS ORDERED: methylPREDNISolone Sodium Succinate 125 MG/2 ML SDV IVPUSH SCH (21:45)
[2018-04-20] MEDS ORDERED: Sodium Chloride 0.9% 1,000 ML IV SCH ×2 (21:45→23:00)
[2018-04-21] MEDS: methylPREDNISolone Sodium Succinate 125 MG/2 ML SDV IVPUSH SCH ×3 (01:33→17:01)
[2018-04-21] MEDS: Sodium Chloride 0.9% 10 ML Syringe FLUSH PRN ×6 (01:34→22:07)
[2018-04-21] MEDS ORDERED: Magnesium Sulfate/Water 2 GM in Premix Bag 1 BAG IV ONE (02:30)
[2018-04-21] MEDS: Albuterol/Ipratropium 3.0-0.5 MG/3 ML Neb Soln NEB PRN ×2 (07:34→14:35)
--- NOTE | 2018-04-21 09:15 | PCM.HP ---
H&P History of Present Illness - General Date of Service: 04/21/18 Admit Problem/Dx: Admission Diagnosis/Problem Admission Diagnosis/Problem Pneumonia - History of Present Illness Initial Comments - Free Text/Narative: Lemuel is a 72-year-old male who was admitted last night because of fever chills cough. He was sick for 1-1/2 days after insidious onset. Cough productive for yellow sputum. He has a history of COPD that is poorly controlled it fibrillation fairly new and poorly controlled. He also has severe peripheral vascular disease and chronic leg edema. This has been poorly controlled as well he sees vascular surgery in [place]. He does not use oxygen, at home, but continues to smoke tobacco. He previously used metoprolol but this was making him have swelling of the neck according to him, and that would not tolerate Cardizem because of extremity edema - Related Data Allergies/Adverse Reactions: Allergies Allergy/AdvReac Type Severity Reaction Status Date / Time No Known Allergies Allergy Verified 04/20/18 18:07 Home Medications: Home Meds Aspirin 650 mg PO DAILY PRN 11/02/17 [History] Ascorbate Calcium [Vitamin C] 500 mg PO BID 03/25/18 [History] Budesonide/Formoterol Fumarate [Symbicort 80-4.5 Mcg Inhaler] 2 puff IH BID [History] Metoprolol Succinate 50 mg PO DAILY 04/20/18 [History] Albuterol/Ipratropium [DuoNeb 3.0-0.5 MG/3 ML] 3 ml IH 5XDAY PRN 04/21/18 [ History] Furosemide [Lasix] 20 mg PO DAILY@1200 04/21/18 [History] Furosemide [Lasix] 40 mg PO DAILY@0800 04/21/18 [History] diphenhydrAMINE [Benadryl] 50 mg PO DAILY PRN 04/21/18 [History] Past Medical History HEENT History: Reports: Impaired Vision Cardiovascular History: Reports: SOB on Exertion Other Cardiovascular History: heartrate rapid admit to ER today 147 Respiratory History: Reports: COPD, Pneumonia, Recurrent, SOB Gastrointestinal History: Reports: Other (See Below) Other Gastrointestinal History: Hx abdominal surgery not sure why. Hx GI + rectal bleeding, Genitourinary History: Reports: Prostate Disorder Other Genitourinary History: Hx bladder infection 2 years ago. Musculoskeletal History: Reports: Arthritis, Back Pain, Chronic, Osteoporosis Other Musculoskeletal History: Hx bilateral shoulder discomfort. Hx of osteomyelitis of back. Neurological History: Reports: None Psychiatric History: Reports: None Endocrine/Metabolic History: Reports: Osteoporosis Other Endocrine/Metabolic History: had in past Hematologic History: Reports: None Immunologic History: Reports: None Oncologic (Cancer) History: Reports: None Dermatologic History: Reports: Other (See Below) Other Dermatologic History: Hx cellulitis of lower legs. - Infectious Disease History Infectious Disease History: Reports: Chicken Pox, Measles - Past Surgical History HEENT Surgical History: Reports: Oral Surgery GI Surgical History: Reports: Colonoscopy, Other (See Below) Other GI Surgeries/Procedures: Hx splenectomy at age 11. Musculoskeletal Surgical History: Reports: Shoulder Surgery, Other (See Below) Other Musculoskeletal Surgeries/Procedures:: States he had surgery for osteomyelitis in back, has plates and screws, ribs removed. Social & Family History - Family History Family Medical History: Noncontributory HEENT: Reports: Cataract, Impaired Vision Respiratory: Reports: Asthma Musculoskeletal: Reports: Arthritis Neurological: Reports: None - Tobacco Use Smoking Status *Q: Current Every Day Smoker Years of Tobacco use: 50 Packs/Tins Daily: 1 Used Tobacco, but Quit: No Second Hand Smoke Exposure: No - Caffeine Use Caffeine Use: Reports: Coffee - Recreational Drug Use Recreational Drug Use: No H&P Review of Systems - Review of Systems: Review Of Systems: ROS reveals no pertinent complaints other than HPI. Exam - Exam Exam: See Below - Vital Signs Vital Signs: Last Vital Signs Temp 97.8 F 04/21/18 04:00 Pulse 118 H 04/21/18 07:50 Resp 22 H 04/21/18 04:00 BP 131/88 04/21/18 04:00 Pulse Ox 93 L 04/21/18 07:50 Weight: 70.125 kg - Exam Quality Assessment: Supplemental Oxygen Lungs: Crackles Cardiovascular: Irregular Rhythm, Tachycardia (Male) Exam: Deferred Rectal (Males) Exam: Deferred Extremities: Pedal Edema, Slow Capillary Refill, Mottled, Redness - Patient Data Lab Results Last 24 hrs: Laboratory Results - last 24 hr 04/20/18 04/20/18 04/20/18 Range/Units 17:20 17:20 17:20 WBC 19.2 H (4.5-12.0) X10-3/uL RBC 4.79 (4.30-5.75) x10(6)uL Hgb 13.9 (11.5-15.5) g/dL Hct 43.3 (30.0-51.3) % MCV 90.5 (80-96) fL MCH 29.1 (27.7-33.6) pg MCHC 32.2 (32.2-35.4) g/dL RDW 15.2 (11.5-15.5) % Plt Count 229 (125-369) X10(3)uL MPV 13.0 H (7.4-10.4) fL Add Manual Diff Yes Neutrophils % (Manual) 88 H (46-82) % Lymphocytes % (Manual) 7 L (13-37) % Monocytes % (Manual) 5 (4-12) % Sodium 138 (135-145) mmol/L Potassium 4.1 (3.5-5.3) mmol/L Chloride 102 D (100-110) mmol/L Carbon Dioxide 26 (21-32) mmol/L BUN 28 H (7-18) mg/dL Creatinine 1.0 (0.70-1.30) mg/dL Est Cr Clr Drug Dosing TNP Estimated GFR (MDRD) > 60 (>60) BUN/Creatinine Ratio 28.0 H (9-20) Glucose 117 H (80-116) mg/dL Lactic Acid 1.8 (0.4-2.2) mmol/L Calcium 9.1 (8.6-10.2) mg/dL Magnesium (1.8-2.5) mg/dL Troponin I (<0.017-0.056) ng/mL NT-Pro-B Natriuret Pep (<=125) pg/mL 04/20/18 04/20/18 04/21/18 Range/Units 17:20 17:45 01:48 WBC (4.5-12.0) X10-3/uL RBC (4.30-5.75) x10(6)uL Hgb (11.5-15.5) g/dL Hct (30.0-51.3) % MCV (80-96) fL MCH (27.7-33.6) pg MCHC (32.2-35.4) g/dL RDW (11.5-15.5) % Plt Count (125-369) X10(3)uL MPV (7.4-10.4) fL Add Manual Diff Neutrophils % (Manual) (46-82) % Lymphocytes % (Manual) (13-37) % Monocytes % (Manual) (4-12) % Sodium (135-145) mmol/L Potassium (3.5-5.3) mmol/L Chloride (100-110) mmol/L Carbon Dioxide (21-32) mmol/L BUN (7-18) mg/dL Creatinine (0.70-1.30) mg/dL Est Cr Clr Drug Dosing Estimated GFR (MDRD) (>60) BUN/Creatinine Ratio (9-20) Glucose (80-116) mg/dL Lactic Acid (0.4-2.2) mmol/L Calcium (8.6-10.2) mg/dL Magnesium 1.7 L (1.8-2.5) mg/dL Troponin I 0.017 (<0.017-0.056) ng/mL NT-Pro-B Natriuret Pep 6822 H* (<=125) pg/mL Result Diagrams: 04/20/18 17:20 04/20/18 17:20 Imaging Impressions Last 24 hrs: Xray showed RLL infiltrate EKG INTERPRETATION Rhythm: A-Fib - Problem List (1) Pneumonia SNOMED Code(s): 565381998 ICD Code: J18.9 - PNEUMONIA, UNSPECIFIED ORGANISM Status: Acute Current Visit: Yes Qualifiers: Pneumonia type: due to unspecified organism Laterality: right (2) Afib SNOMED Code(s): 39766369 ICD Code: I48.91 - UNSPECIFIED ATRIAL FIBRILLATION Status: Chronic Current Visit: No Qualifiers: Atrial fibrillation type: persistent Qualified Code(s): I48.1 - Persistent atrial fibrillation (3) COPD (chronic obstructive pulmonary disease) SNOMED Code(s): 35512273 ICD Code: J44.9 - CHRONIC OBSTRUCTIVE PULMONARY DISEASE, UNSPECIFIED Status : Acute Current Visit: No Qualifiers: COPD type: COPD with acute lower respiratory infection Qualified Code(s): J44.0 - Chronic obstructive pulmonary disease with acute lower respiratory infection (4) Leg edema SNOMED Code(s): 819403702 ICD Code: R60.0 - LOCALIZED EDEMA Status: Chronic Current Visit: No (5) Peripheral vascular disease SNOMED Code(s): 651735104 ICD Code: I73.9 - PERIPHERAL VASCULAR DISEASE, UNSPECIFIED Status: Chronic Current Visit: No (6) Tobacco abuse SNOMED Code(s): 622660044 ICD Code: Z72.0 - TOBACCO USE Status: Chronic Current Visit: No Problem List Initiated/Reviewed/Updated: Yes Orders Last 24hrs: Active Orders 24 hr Category Date Time Status Patient Status [ADT] Routine ADT 04/20/18 19:44 Active Cardiac Monitoring [RC] CONTINUOUS Care 04/20/18 19:47 Active Oxygen Therapy [RC] PRN Care 04/20/18 19:44 Active Pulse Oximetry [RC] CONTINUOUS Care 04/20/18 19:47 Active RT Aerosol Therapy [RC] ASDIRECTED Care 04/20/18 17:00 Active Up With Assistance [RC] 09,13,17,21 Care 04/20/18 19:43 Active VTE/DVT Education [RC] Per Unit Routine Care 04/20/18 19:44 Active Vital Signs [RC] 00,04,08,12,16,20 Care 04/20/18 19:44 Active Chest 1V Frontal [CR] Stat Exams 04/20/18 17:00 Taken CULTURE BLOOD [BC] Urgent Lab 04/20/18 17:15 Received CULTURE BLOOD [BC] Urgent Lab 04/20/18 17:20 Received Albuterol/Ipratropium [DuoNeb 3.0-0.5 MG/3 ML] Med 04/20/18 21:39 Active 3 ml NEB Q4H PRN Nicotine [Habitrol] Med 04/21/18 09:00 Active 21 mg TRDERM DAILY Sodium Chloride 0.9% [Normal Saline] 1,000 ml Med 04/20/18 21:45 Active IV ASDIRECTED Sodium Chloride 0.9% [Normal Saline] 1,000 ml Med 04/20/18 23:00 Active IV ASDIRECTED Sodium Chloride 0.9% [Saline Flush] Med 04/20/18 17:30 Active 10 ml FLUSH ASDIRECTED PRN methylPREDNISolone Sod Succ [Solu-MEDROL] Med 04/21/18 01:00 Active 125 mg IVPUSH Q8H Blood Culture x2 Reflex Set [OM.PC] Urgent Oth 04/20/18 17:02 Ordered Resuscitation Status Routine Resus Stat 04/20/18 19:43 Ordered EKG 12 Lead [EK] Routine Ther 04/20/18 17:01 Ordered Medication Orders Albuterol/Ipratropium (Duoneb 3.0-0.5 Mg/3 Ml) 3 ml NEB Q4H PRN PRN Reason: Shortness of Breath Last Admin: 04/21/18 07:34 Dose: 3 ml Sodium Chloride (Normal Saline) 1,000 mls @ 125 mls/hr IV ASDIRECTED SRAVAN Last Admin: 04/20/18 22:18 Dose: 125 mls/hr Sodium Chloride (Normal Saline) 1,000 mls @ 125 mls/hr IV ASDIRECTED SRAVAN Methylprednisolone Sodium Succinate (Solu-Medrol) 125 mg IVPUSH Q8H SRAVAN Last Admin: 04/21/18 01:33 Dose: 125 mg Nicotine (Habitrol) 21 mg TRDERM DAILY SRAVAN Sodium Chloride (Saline Flush) 10 ml FLUSH ASDIRECTED PRN PRN Reason: Keep Vein Open Last Admin: 04/21/18 01:34 Dose: 10 ml Admin: 04/20/18 17:30 Dose: 10 ml Assessment/Plan Comment:: Because of his recent hospitalization, I will start him on triple therapy for multidrug-resistant pneumonia. I've elected Zosyn, Levaquin and vancomycin. I will also give Solu-Medrol and SVNs for COPD. We will supplement oxygen by nasal cannula.. I discussed anticoagulation and will start him on Eliquis. The pharmacist will assist dosing. For rate control ,he is unable to the metoprolol ,so I will try extended release Cardizem to see if this improves his symptoms. We'll obtain his previous records including recent echocardiogram that he had. Nicotine gum or patch will be given as needed to control the urge for smoking
[2018-04-21] MEDS: Nicotine 21 MG/24 Hr Patch TRDERM SCH (09:56)
[2018-04-21] MEDS ORDERED: Formoterol/Mometasone 100-5 MCG 8.8 GM Inhaler IH SCH (10:15)
[2018-04-21] MEDS: Metoprolol Succinate 50 MG Tab.ER PO SCH (10:30)
[2018-04-21] MEDS: Aspirin 81 MG Tab.EC PO SCH (10:31)
[2018-04-21] MEDS: Furosemide 40 MG Tab PO SCH ×2 (10:32→16:25)
[2018-04-21] MEDS: Piperacillin/Tazobactam 3.375 GM in Sodium Chloride 0.9% 50 ML IV SCH ×3 (10:32→22:04)
[2018-04-21] MEDS: Formoterol/Mometasone 100-5 MCG 8.8 GM Inhaler IH SCH ×2 (10:33→20:15)
[2018-04-21] MEDS: Apixaban 5 MG Tab PO SCH ×2 (10:38→20:14)
[2018-04-21] MEDS ORDERED: Diltiazem 120 MG Cap.CD PO ONE (18:52)
[2018-04-21] MEDS: Levofloxacin/Dextrose 5%-Water 750 MG in Premix Bag 1 BAG IV SCH (20:18)
[2018-04-22] MEDS: methylPREDNISolone Sodium Succinate 125 MG/2 ML SDV IVPUSH SCH ×3 (00:15→17:26)
[2018-04-22] MEDS: Sodium Chloride 0.9% 10 ML Syringe FLUSH PRN ×5 (00:17→20:42)
[2018-04-22] MEDS: Piperacillin/Tazobactam 3.375 GM in Sodium Chloride 0.9% 50 ML IV SCH ×4 (03:33→22:17)
[2018-04-22] MEDS: Acetaminophen 325 MG Tab PO PRN ×2 (03:38→20:19)
[2018-04-22] MEDS: Albuterol/Ipratropium 3.0-0.5 MG/3 ML Neb Soln NEB PRN ×4 (03:51→20:35)
[2018-04-22] MEDS: Formoterol/Mometasone 100-5 MCG 8.8 GM Inhaler IH SCH ×2 (08:20→20:37)
[2018-04-22] MEDS: Nicotine 21 MG/24 Hr Patch TRDERM SCH (08:21)
[2018-04-22] MEDS: Aspirin 81 MG Tab.EC PO SCH (08:21)
[2018-04-22] MEDS: Apixaban 5 MG Tab PO SCH ×2 (08:21→20:37)
[2018-04-22] MEDS: Furosemide 40 MG Tab PO SCH ×2 (08:22→14:59)
[2018-04-22] MEDS: Metoprolol Succinate 50 MG Tab.ER PO SCH (08:22)
--- NOTE | 2018-04-22 09:37 | PCM.PN ---
- General Info Date of Service: 04/22/18 Admission Dx/Problem (Free Text): Admission Diagnosis/Problem Admission Diagnosis/Problem Pneumonia Subjective Update: Lemuel feels better this morning. Is been able to ambulate at least 20 times. He still needs oxygen, however. Yesterday I gave him to 40 mg of Cardizem that seemed to help his heart periods now between 90 and 120. He said a couple runs of V. tach that is nonsustained. - Review of Systems Pulmonary: Reports: Cough Cardiovascular: Reports: Palpitations Gastrointestinal: Reports: No Symptoms Genitourinary: Reports: No Symptoms - Patient Data Vitals - Most Recent: Last Vital Signs Temp 97.6 F 04/22/18 04:00 Pulse 98 04/22/18 08:22 Resp 22 H 04/22/18 04:00 BP 118/69 04/22/18 08:22 Pulse Ox 93 L 04/22/18 04:00 Weight - Most Recent: 70.125 kg I&O - Last 24 Hours: Intake & Output 04/21/18 04/22/18 04/22/18 22:59 06:59 14:59 Intake Total 200 300 Output Total 420 200 Balance -220 100 Lab Results Last 24 Hours: Laboratory Results - last 24 hr 04/22/18 04/22/18 Range/Units 06:45 06:45 WBC 21.9 H (4.5-12.0) X10-3/uL RBC 4.05 L (4.30-5.75) x10(6)uL Hgb 12.1 (11.5-15.5) g/dL Hct 37.0 (30.0-51.3) % MCV 91.5 (80-96) fL MCH 30.0 (27.7-33.6) pg MCHC 32.8 (32.2-35.4) g/dL RDW 15.7 H (11.5-15.5) % Plt Count 218 (125-369) X10(3)uL MPV 12.9 H (7.4-10.4) fL Add Manual Diff Yes Neutrophils % (Manual) 93 H (46-82) % Lymphocytes % (Manual) 6 L (13-37) % Monocytes % (Manual) 1 L (4-12) % Sodium 142 (135-145) mmol/L Potassium 3.8 (3.5-5.3) mmol/L Chloride 105 (100-110) mmol/L Carbon Dioxide 28 (21-32) mmol/L BUN 33 H (7-18) mg/dL Creatinine 0.9 (0.70-1.30) mg/dL Est Cr Clr Drug Dosing 67.94 mL/min Estimated GFR (MDRD) > 60 (>60) BUN/Creatinine Ratio 36.7 H (9-20) Glucose 187 H (80-116) mg/dL Calcium 8.2 L (8.6-10.2) mg/dL Total Bilirubin 0.3 (0.1-1.3) mg/dL AST 20 D (5-25) IU/L ALT 27 D (12-36) U/L Alkaline Phosphatase 64 (56-112) IU/L Total Protein 6.2 (6.0-8.0) g/dL Albumin 2.3 L (3.2-4.6) g/dL Globulin 3.9 g/dL Albumin/Globulin Ratio 0.6 Doc Results Last 24 Hours: Microbiology 04/20/18 17:15 Aerobic Blood Culture - Preliminary Blood - Venous - Lab Draw NO GROWTH AFTER 1 DAY Anaerobic Blood Culture - Preliminary NO GROWTH AFTER 1 DAY 04/20/18 17:20 Aerobic Blood Culture - Preliminary Blood - Venous NO GROWTH AFTER 1 DAY Anaerobic Blood Culture - Preliminary NO GROWTH AFTER 1 DAY Med Orders - Current: Current Medications Acetaminophen (Tylenol) 650 mg PO Q4H PRN PRN Reason: Pain Last Admin: 04/22/18 03:38 Dose: 650 mg Albuterol/Ipratropium (Duoneb 3.0-0.5 Mg/3 Ml) 3 ml NEB Q4H PRN PRN Reason: Shortness of Breath Last Admin: 04/22/18 03:51 Dose: 3 ml Apixaban (Eliquis) 5 mg PO BID [facility] Last Admin: 04/22/18 08:21 Dose: 5 mg Aspirin (Halfprin) 81 mg PO DAILY [facility] Last Admin: 04/22/18 08:21 Dose: 81 mg Diltiazem HCl (Cardizem Cd) 300 mg PO DAILY [facility] Furosemide (Lasix) 40 mg PO BIDDIURETIC [facility] Last Admin: 04/22/18 08:22 Dose: 40 mg Sodium Chloride (Normal Saline) 1,000 mls @ 125 mls/hr IV ASDIRECTED [facility] Last Admin: 04/20/18 22:18 Dose: 125 mls/hr Sodium Chloride (Normal Saline) 1,000 mls @ 125 mls/hr IV ASDIRECTED [facility] Levofloxacin/Dextrose 750 mg/ (Premix) 150 mls @ 100 mls/hr IV Q24H [facility] Last Admin: 04/21/18 20:18 Dose: 100 mls/hr Vancomycin HCl 1 gm/ Sodium (Chloride) 250 mls @ 167 mls/hr IV Q12H [facility] Last Admin: 04/21/18 22:33 Dose: 167 mls/hr Piperacillin Sod/Tazobactam (Sod 3.375 gm/ Sodium Chloride) 50 mls @ 100 mls/ hr IV Q6H [facility] Last Admin: 04/22/18 03:33 Dose: 100 mls/hr Methylprednisolone Sodium Succinate (Solu-Medrol) 125 mg IVPUSH Q8H [facility] Last Admin: 04/22/18 08:22 Dose: 125 mg Metoprolol Succinate (Toprol Xl) 50 mg PO DAILY [facility] Last Admin: 04/22/18 08:22 Dose: 50 mg Mometasone Furoate/Formoterol Fumar (Dulera 100-5 Mcg) 2 puff IH BID [facility] Last Admin: 04/22/18 08:20 Dose: 2 puff Nicotine (Habitrol) 21 mg TRDERM DAILY [facility] Last Admin: 04/22/18 08:21 Dose: 21 mg Sodium Chloride (Saline Flush) 10 ml FLUSH ASDIRECTED PRN PRN Reason: Keep Vein Open Last Admin: 04/22/18 08:22 Dose: 10 ml Vancomycin HCl (Pharmacy To Dose - Vancomycin) 0 dose .XX ASDIRECTED [facility] Discontinued Medications Albuterol/Ipratropium (Duoneb 3.0-0.5 Mg/3 Ml) 3 ml NEB ONETIME ONE Stop: 04/20/18 17:01 Last Admin: 04/20/18 17:32 Dose: 3 ml Diltiazem HCl (Cardizem Cd) 240 mg PO ONETIME ONE Stop: 04/21/18 18:53 Last Admin: 04/21/18 19:06 Dose: 240 mg Sodium Chloride (Normal Saline) 500 mls @ 999 mls/hr IV .BOLUS ONE Stop: 04/20/18 18:15 Last Admin: 04/20/18 17:50 Dose: 999 mls/hr Levofloxacin/Dextrose 750 mg/ (Premix) 150 mls @ 100 mls/hr IV ONETIME ONE Stop: 04/20/18 20:21 Last Admin: 04/20/18 20:54 Dose: 100 mls/hr Levofloxacin/Dextrose (Levaquin In D5w 750 Mg/150 Ml) Confirm Administered Dose 150 mls @ as directed IV .STK-MED ONE Stop: 04/20/18 20:52 Last Admin: 04/20/18 21:57 Dose: Not Given Vancomycin HCl 1,500 mg/ (Sodium Chloride) 250 mls @ 167 mls/hr IV ONETIME STA Stop: 04/21/18 00:14 Last Admin: 04/21/18 17:20 Dose: Not Given Vancomycin HCl 1,500 mg/ (Sodium Chloride) 500 mls @ 334.014 mls/hr IV ONETIME STA Stop: 04/21/18 00:14 Last Admin: 04/21/18 17:20 Dose: Not Given Vancomycin HCl 1,500 mg/ (Sodium Chloride) 500 mls @ 334.014 mls/hr IV ONETIME STA Stop: 04/21/18 01:01 Last Admin: 04/20/18 23:33 Dose: 334.014 mls/hr Magnesium Sulfate 2 gm/ Premix 50 mls @ 100 mls/hr IV ONETIME ONE Stop: 04/21/18 02:59 Last Admin: 04/21/18 02:33 Dose: 100 mls/hr Methylprednisolone Sodium Succinate (Solu-Medrol) 125 mg IVPUSH ONETIME ONE Stop: 04/20/18 17:01 Last Admin: 04/20/18 17:25 Dose: 125 mg Methylprednisolone Sodium Succinate (Solu-Medrol) 125 mg IVPUSH Q8H [facility] Last Admin: 04/21/18 17:20 Dose: Not Given - Problem List & Annotations (1) Pneumonia SNOMED Code(s): 308292593 Code(s): J18.9 - PNEUMONIA, UNSPECIFIED ORGANISM Status: Acute Current Visit: Yes Qualifiers: Pneumonia type: due to unspecified organism Laterality: right (2) Afib SNOMED Code(s): 20113691 Code(s): I48.91 - UNSPECIFIED ATRIAL FIBRILLATION Status: Chronic Current Visit: No Qualifiers: Atrial fibrillation type: persistent Qualified Code(s): I48.1 - Persistent atrial fibrillation (3) COPD (chronic obstructive pulmonary disease) SNOMED Code(s): 21258964 Code(s): J44.9 - CHRONIC OBSTRUCTIVE PULMONARY DISEASE, UNSPECIFIED Status : Acute Current Visit: No Qualifiers: COPD type: COPD with acute lower respiratory infection Qualified Code(s): J44.0 - Chronic obstructive pulmonary disease with acute lower respiratory infection (4) Leg edema SNOMED Code(s): 368775265 Code(s): R60.0 - LOCALIZED EDEMA Status: Chronic Current Visit: No (5) Peripheral vascular disease SNOMED Code(s): 175385892 Code(s): I73.9 - PERIPHERAL VASCULAR DISEASE, UNSPECIFIED Status: Chronic Current Visit: No (6) Tobacco abuse SNOMED Code(s): 457879946 Code(s): Z72.0 - TOBACCO USE Status: Chronic Current Visit: No - Problem List Review Problem List Initiated/Reviewed/Updated: Yes - My Orders Last 24 Hours: My Active Orders 04/21/18 09:30 Metoprolol Succinate [Toprol XL] 50 mg PO DAILY 04/21/18 10:00 Aspirin [Halfprin] 81 mg PO DAILY Furosemide [Lasix] 40 mg PO BIDDIURETIC Piperacillin/Tazobactam [Zosyn] 3.375 gm Sodium Chloride 0.9% [Normal Saline] 50 ml IV Q6H 04/21/18 10:15 Vancomycin Pharmacy to Dose [Pharmacy to Dose - Vancomycin] See Dose Instructions .XX ASDIRECTED 04/21/18 10:30 Apixaban [Eliquis] 5 mg PO BID Mometasone/Formoterol [Dulera 100-5 MCG] 2 puff IH BID 04/21/18 11:00 Vancomycin [Vancocin] 1 gm Sodium Chloride 0.9% [Normal Saline] 250 ml IV Q12H 04/21/18 21:00 Levofloxacin/Dextrose 5%-Water [Levaquin in D5W 750 MG/150 ML] 750 mg Premix Bag 1 bag IV Q24H 04/22/18 03:13 Acetaminophen [Tylenol] 650 mg PO Q4H PRN 04/22/18 09:34 Height and Weight [RC] Q8H OT Evaluation and Treatment [CONS] Routine PT Evaluation and Treatment [CONS] Routine 04/22/18 09:45 Diltiazem [Cardizem CD] 300 mg PO DAILY 04/22/18 10:30 VANCOMYCIN TROUGH [CHEM] Routine 04/23/18 05:11 BASIC METABOLIC PANEL,BMP [CHEM] AM CBC WITH AUTO DIFF [HEME] AM PRO B-TYPE NATRIUR PEPT,BNPPRO [CHEM] DAILY 04/24/18 05:11 PRO B-TYPE NATRIUR PEPT,BNPPRO [CHEM] DAILY 04/25/18 05:11 PRO B-TYPE NATRIUR PEPT,BNPPRO [CHEM] DAILY - Plan Plan:: Continue with IV antibiotic and Solu-Medrol. I'll continued with Cardizem and will increase the dose to 1040 daily. I recommended daily weights, input and output, along with physical therapy. Also continue ambulation and incentive spirometry. Plan to repeat BNP CBC and basic profile in the morning.
[2018-04-22] MEDS ORDERED: Diltiazem 300 MG Cap.CD PO SCH (09:45)
[2018-04-22] MEDS: Diltiazem 240 MG Cap.ER PO SCH (11:15)
[2018-04-22] MEDS: Levofloxacin/Dextrose 5%-Water 750 MG in Premix Bag 1 BAG IV SCH (20:38)
[2018-04-22] MEDS ORDERED: Polyethylene Glycol 3350 Powder 17 GM Packet PO PRN (22:24)
[2018-04-23] MEDS: Albuterol/Ipratropium 3.0-0.5 MG/3 ML Neb Soln NEB PRN ×3 (00:18→14:08)
[2018-04-23] MEDS: methylPREDNISolone Sodium Succinate 125 MG/2 ML SDV IVPUSH SCH ×3 (00:20→17:07)
[2018-04-23] MEDS: Sodium Chloride 0.9% 10 ML Syringe FLUSH PRN ×10 (00:34→22:58)
[2018-04-23] MEDS: Piperacillin/Tazobactam 3.375 GM in Sodium Chloride 0.9% 50 ML IV SCH ×4 (04:11→22:57)
[2018-04-23] MEDS: Acetaminophen 325 MG Tab PO PRN (06:00)
[2018-04-23] MEDS: Aspirin 81 MG Tab.EC PO SCH (08:18)
[2018-04-23] MEDS: Furosemide 40 MG Tab PO SCH ×2 (08:18→13:49)
[2018-04-23] MEDS: Formoterol/Mometasone 100-5 MCG 8.8 GM Inhaler IH SCH ×2 (08:19→21:25)
[2018-04-23] MEDS: Nicotine 21 MG/24 Hr Patch TRDERM SCH (08:20)
[2018-04-23] MEDS: Apixaban 5 MG Tab PO SCH ×2 (08:20→21:25)
--- NOTE | 2018-04-23 09:01 | PCM.PN ---
- General Info Date of Service: 04/23/18 Admission Dx/Problem (Free Text): Admission Diagnosis/Problem Admission Diagnosis/Problem Pneumonia Subjective Update: ramsey slept well. Is down to 1 L of oxygen via nasal cannula. Heart rate has improved on Cardizem. He has no chest pain cough or fever. - Review of Systems Cardiovascular: Denies: Chest Pain Gastrointestinal: Reports: No Symptoms Genitourinary: Reports: No Symptoms - Patient Data Vitals - Most Recent: Last Vital Signs Temp 97.6 F 04/23/18 07:36 Pulse 90 04/23/18 07:36 Resp 20 04/23/18 04:00 BP 103/65 04/23/18 07:36 Pulse Ox 88 L 04/23/18 07:36 Weight - Most Recent: 69.763 kg I&O - Last 24 Hours: Intake & Output 04/22/18 04/23/18 04/23/18 22:59 06:59 14:59 Intake Total 150 355 Output Total 350 Balance -200 355 Lab Results Last 24 Hours: Laboratory Results - last 24 hr 04/22/18 04/23/18 04/23/18 Range/Units 10:30 06:40 06:40 WBC 19.6 H (4.5-12.0) X10-3/uL RBC 4.25 L (4.30-5.75) x10(6)uL Hgb 12.5 (11.5-15.5) g/dL Hct 38.6 (30.0-51.3) % MCV 90.7 (80-96) fL MCH 29.5 (27.7-33.6) pg MCHC 32.5 (32.2-35.4) g/dL RDW 15.7 H (11.5-15.5) % Plt Count 223 (125-369) X10(3)uL MPV 13.6 H (7.4-10.4) fL Add Manual Diff Yes Neutrophils % (Manual) 94 H (46-82) % Lymphocytes % (Manual) 5 L (13-37) % Monocytes % (Manual) 1 L (4-12) % Sodium 143 (135-145) mmol/L Potassium 3.7 (3.5-5.3) mmol/L Chloride 104 (100-110) mmol/L Carbon Dioxide 29 (21-32) mmol/L BUN 36 H (7-18) mg/dL Creatinine 1.1 (0.70-1.30) mg/dL Est Cr Clr Drug Dosing 55.58 mL/min Estimated GFR (MDRD) > 60 (>60) BUN/Creatinine Ratio 32.7 H (9-20) Glucose 164 H (80-116) mg/dL Calcium 8.7 (8.6-10.2) mg/dL NT-Pro-B Natriuret Pep (<=125) pg/mL Vancomycin Trough 13.7 H (5.0-10.0) ug/mL 04/23/18 Range/Units 06:40 WBC (4.5-12.0) X10-3/uL RBC (4.30-5.75) x10(6)uL Hgb (11.5-15.5) g/dL Hct (30.0-51.3) % MCV (80-96) fL MCH (27.7-33.6) pg MCHC (32.2-35.4) g/dL RDW (11.5-15.5) % Plt Count (125-369) X10(3)uL MPV (7.4-10.4) fL Add Manual Diff Neutrophils % (Manual) (46-82) % Lymphocytes % (Manual) (13-37) % Monocytes % (Manual) (4-12) % Sodium (135-145) mmol/L Potassium (3.5-5.3) mmol/L Chloride (100-110) mmol/L Carbon Dioxide (21-32) mmol/L BUN (7-18) mg/dL Creatinine (0.70-1.30) mg/dL Est Cr Clr Drug Dosing mL/min Estimated GFR (MDRD) (>60) BUN/Creatinine Ratio (9-20) Glucose (80-116) mg/dL Calcium (8.6-10.2) mg/dL NT-Pro-B Natriuret Pep 2920 H* (<=125) pg/mL Vancomycin Trough (5.0-10.0) ug/mL Doc Results Last 24 Hours: Microbiology 04/20/18 17:15 Aerobic Blood Culture - Preliminary Blood - Venous - Lab Draw NO GROWTH AFTER 2 DAYS Anaerobic Blood Culture - Preliminary NO GROWTH AFTER 2 DAYS 04/20/18 17:20 Aerobic Blood Culture - Preliminary Blood - Venous NO GROWTH AFTER 2 DAYS Anaerobic Blood Culture - Preliminary NO GROWTH AFTER 2 DAYS Med Orders - Current: Current Medications Acetaminophen (Tylenol) 650 mg PO Q4H PRN PRN Reason: Pain Last Admin: 04/23/18 06:00 Dose: 650 mg Albuterol/Ipratropium (Duoneb 3.0-0.5 Mg/3 Ml) 3 ml NEB Q4H PRN PRN Reason: Shortness of Breath Last Admin: 04/23/18 07:52 Dose: 3 ml Apixaban (Eliquis) 5 mg PO BID [facility] Last Admin: 04/23/18 08:20 Dose: 5 mg Aspirin (Halfprin) 81 mg PO DAILY [facility] Last Admin: 04/23/18 08:18 Dose: 81 mg Diltiazem HCl (Dilacor Xr) 240 mg PO DAILY [facility] Last Admin: 04/22/18 11:15 Dose: 240 mg Furosemide (Lasix) 40 mg PO BIDDIURETIC [facility] Last Admin: 04/23/18 08:18 Dose: 40 mg Sodium Chloride (Normal Saline) 1,000 mls @ 125 mls/hr IV ASDIRECTED [facility] Last Admin: 04/20/18 22:18 Dose: 125 mls/hr Sodium Chloride (Normal Saline) 1,000 mls @ 125 mls/hr IV ASDIRECTED [facility] Levofloxacin/Dextrose 750 mg/ (Premix) 150 mls @ 100 mls/hr IV Q24H [facility] Last Admin: 04/22/18 20:38 Dose: 100 mls/hr Piperacillin Sod/Tazobactam (Sod 3.375 gm/ Sodium Chloride) 50 mls @ 100 mls/ hr IV Q6H [facility] Last Admin: 04/23/18 04:11 Dose: 100 mls/hr Vancomycin HCl 1,000 mg/Vancomycin HCl 250 mg/ Sodium Chloride 250 mls @ 167 mls/hr IV Q12H [facility] Last Admin: 04/22/18 23:01 Dose: 167 mls/hr Methylprednisolone Sodium Succinate (Solu-Medrol) 125 mg IVPUSH Q8H [facility] Last Admin: 04/23/18 08:21 Dose: 125 mg Mometasone Furoate/Formoterol Fumar (Dulera 100-5 Mcg) 2 puff IH BID [facility] Last Admin: 04/23/18 08:19 Dose: 2 puff Nicotine (Habitrol) 21 mg TRDERM DAILY [facility] Last Admin: 04/23/18 08:20 Dose: 21 mg Polyethylene Glycol (Miralax) 17 gm PO BEDTIME PRN PRN Reason: Constipation Last Admin: 04/22/18 22:48 Dose: 17 gm Sodium Chloride (Saline Flush) 10 ml FLUSH ASDIRECTED PRN PRN Reason: Keep Vein Open Last Admin: 04/23/18 08:23 Dose: 10 ml Vancomycin HCl (Pharmacy To Dose - Vancomycin) 0 dose .XX ASDIRECTED [facility] Discontinued Medications Albuterol/Ipratropium (Duoneb 3.0-0.5 Mg/3 Ml) 3 ml NEB ONETIME ONE Stop: 04/20/18 17:01 Last Admin: 04/20/18 17:32 Dose: 3 ml Diltiazem HCl (Cardizem Cd) 240 mg PO ONETIME ONE Stop: 04/21/18 18:53 Last Admin: 04/21/18 19:06 Dose: 240 mg Diltiazem HCl (Cardizem Cd) 300 mg PO DAILY [facility] Last Admin: 04/22/18 14:32 Dose: Not Given Sodium Chloride (Normal Saline) 500 mls @ 999 mls/hr IV .BOLUS ONE Stop: 04/20/18 18:15 Last Admin: 04/20/18 17:50 Dose: 999 mls/hr Levofloxacin/Dextrose 750 mg/ (Premix) 150 mls @ 100 mls/hr IV ONETIME ONE Stop: 04/20/18 20:21 Last Admin: 04/20/18 20:54 Dose: 100 mls/hr Levofloxacin/Dextrose (Levaquin In D5w 750 Mg/150 Ml) Confirm Administered Dose 150 mls @ as directed IV .STK-MED ONE Stop: 04/20/18 20:52 Last Admin: 04/20/18 21:57 Dose: Not Given Vancomycin HCl 1,500 mg/ (Sodium Chloride) 250 mls @ 167 mls/hr IV ONETIME STA Stop: 04/21/18 00:14 Last Admin: 04/21/18 17:20 Dose: Not Given Vancomycin HCl 1,500 mg/ (Sodium Chloride) 500 mls @ 334.014 mls/hr IV ONETIME STA Stop: 04/21/18 00:14 Last Admin: 04/21/18 17:20 Dose: Not Given Vancomycin HCl 1,500 mg/ (Sodium Chloride) 500 mls @ 334.014 mls/hr IV ONETIME STA Stop: 04/21/18 01:01 Last Admin: 04/20/18 23:33 Dose: 334.014 mls/hr Magnesium Sulfate 2 gm/ Premix 50 mls @ 100 mls/hr IV ONETIME ONE Stop: 04/21/18 02:59 Last Admin: 04/21/18 02:33 Dose: 100 mls/hr Vancomycin HCl 1 gm/ Sodium (Chloride) 250 mls @ 167 mls/hr IV Q12H [facility] Last Admin: 04/22/18 14:33 Dose: Not Given Methylprednisolone Sodium Succinate (Solu-Medrol) 125 mg IVPUSH ONETIME ONE Stop: 04/20/18 17:01 Last Admin: 04/20/18 17:25 Dose: 125 mg Methylprednisolone Sodium Succinate (Solu-Medrol) 125 mg IVPUSH Q8H [facility] Last Admin: 04/21/18 17:20 Dose: Not Given Metoprolol Succinate (Toprol Xl) 50 mg PO DAILY [facility] Last Admin: 04/22/18 08:22 Dose: 50 mg - Exam Quality Assessment: Supplemental Oxygen General: Alert, Oriented HEENT: Pupils Equal Neck: Supple Lungs: Crackles, Rales Cardiovascular: Regular Rate, Irregular Rhythm - Problem List & Annotations (1) Pneumonia SNOMED Code(s): 403497575 Code(s): J18.9 - PNEUMONIA, UNSPECIFIED ORGANISM Status: Acute Current Visit: Yes Qualifiers: Pneumonia type: due to unspecified organism Laterality: right (2) Afib SNOMED Code(s): 40690697 Code(s): I48.91 - UNSPECIFIED ATRIAL FIBRILLATION Status: Chronic Current Visit: No Qualifiers: Atrial fibrillation type: persistent Qualified Code(s): I48.1 - Persistent atrial fibrillation (3) COPD (chronic obstructive pulmonary disease) SNOMED Code(s): 09937325 Code(s): J44.9 - CHRONIC OBSTRUCTIVE PULMONARY DISEASE, UNSPECIFIED Status : Acute Current Visit: No Qualifiers: COPD type: COPD with acute lower respiratory infection Qualified Code(s): J44.0 - Chronic obstructive pulmonary disease with acute lower respiratory infection (4) Leg edema SNOMED Code(s): 360686725 Code(s): R60.0 - LOCALIZED EDEMA Status: Chronic Current Visit: No (5) Peripheral vascular disease SNOMED Code(s): 439490882 Code(s): I73.9 - PERIPHERAL VASCULAR DISEASE, UNSPECIFIED Status: Chronic Current Visit: No (6) Tobacco abuse SNOMED Code(s): 950823691 Code(s): Z72.0 - TOBACCO USE Status: Chronic Current Visit: No - Problem List Review Problem List Initiated/Reviewed/Updated: Yes - My Orders Last 24 Hours: My Active Orders 04/22/18 09:34 Height and Weight [RC] Q8H OT Evaluation and Treatment [CONS] Routine PT Evaluation and Treatment [CONS] Routine 04/22/18 09:37 Incentive Spirometry [RT Incentive Spirometry] [RC] Q4HWA 04/22/18 11:00 Diltiazem [Dilacor XR] 240 mg PO DAILY Vancomycin 1,000 mg Vancomycin 250 mg Sodium Chloride 0.9% [Normal Saline] 250 ml IV Q12H 04/22/18 22:24 Polyethylene Glycol 3350 [MiraLAX] 17 gm PO BEDTIME PRN 04/24/18 05:11 PRO B-TYPE NATRIUR PEPT,BNPPRO [CHEM] DAILY 04/24/18 10:30 VANCOMYCIN TROUGH [CHEM] Timed 04/25/18 05:11 PRO B-TYPE NATRIUR PEPT,BNPPRO [CHEM] DAILY - Plan Plan:: Continue with IV antibiotic and Solu-Medrol. I'll continued with Cardizem as well.. I recommended daily weights, input and output, along with physical therapy. Also continue ambulation and incentive spirometry. Plan to repeat BNP CBC and basic profile in the morning. Probably discharge and then,with home o2
[2018-04-23] MEDS: Diltiazem 240 MG Cap.ER PO SCH (09:35)
[2018-04-23] MEDS: Vancomycin 750 MG, Vancomycin 500 MG in Sodium Chloride 0.9% 250 ML IV SCH (10:57)
[2018-04-23] MEDS ORDERED: Vancomycin 750 MG, Vancomycin 500 MG in Sodium Chloride 0.9% 250 ML IV SCH (11:00)
--- NOTE | 2018-04-23 11:49 | CR ---
INDICATION: Short of breath. CHEST: A single upright portable view of the chest was obtained 04/20/2018 and compared with 04/16/2018, revealing relatively poor inspiration, which emphasizes markings. Increased bibasilar pleural parenchymal changes are noted , suggesting pneumonia and pleuritis. Heart size is difficult to evaluate and may be somewhat enlarged. The aorta is tortuous to a minimal degree and calcified in the arch area. Overlying EKG leads are noted. Lungs appear to be hyperaerated, raising question of COPD - correlate clinically. IMPRESSION: 1. Bibasilar pleural parenchymal changes compatible with pneumonia and pleuritis, right greater than left. 2. Possible ASHD with cardiomegaly. 3. Fusion thoracolumbar spine with plate and screws appearing grossly intact. 4. Probable COPD - correlate clinically. MTDD
[2018-04-23] MEDS: Magnesium Hydroxide 400 MG/5 ML Susp 30 ML Cup PO PRN (14:45)
[2018-04-23] MEDS: Levofloxacin/Dextrose 5%-Water 750 MG in Premix Bag 1 BAG IV SCH (21:26)
[2018-04-24] MEDS: Vancomycin 750 MG, Vancomycin 500 MG in Sodium Chloride 0.9% 250 ML IV SCH ×3 (00:29→23:19)
[2018-04-24] MEDS: methylPREDNISolone Sodium Succinate 125 MG/2 ML SDV IVPUSH SCH ×3 (00:29→17:19)
[2018-04-24] MEDS: Acetaminophen 325 MG Tab PO PRN ×2 (02:33→16:47)
[2018-04-24] MEDS: Sodium Chloride 0.9% 10 ML Syringe FLUSH PRN ×5 (03:58→22:47)
[2018-04-24] MEDS: Piperacillin/Tazobactam 3.375 GM in Sodium Chloride 0.9% 50 ML IV SCH ×4 (04:00→22:32)
[2018-04-24] MEDS: Albuterol/Ipratropium 3.0-0.5 MG/3 ML Neb Soln NEB PRN ×2 (07:17→14:18)
[2018-04-24] MEDS ORDERED: Metolazone 5 MG Tab PO ONE (08:01)
--- NOTE | 2018-04-24 08:03 | PCM.PN ---
- General Info Date of Service: 04/24/18 Subjective Update: Lemuel still has hypoxia and wheezing on ambulation. No fever or chest pain. He feels he could benefit from one more day of IV antibiotics Functional Status: Reports: Pain Controlled, Tolerating Diet, Ambulating, Incentive Spirometry - Review of Systems Gastrointestinal: Reports: No Symptoms Genitourinary: Reports: No Symptoms Musculoskeletal: Reports: No Symptoms - Patient Data Vitals - Most Recent: Last Vital Signs Temp 98.7 F 04/24/18 00:00 Pulse 99 04/23/18 20:00 Resp 19 04/24/18 04:00 BP 126/81 04/24/18 00:00 Pulse Ox 93 L 04/24/18 04:00 Weight - Most Recent: 75.75 kg I&O - Last 24 Hours: Intake & Output 04/23/18 04/24/18 04/24/18 22:59 06:59 14:59 Intake Total 200 250 Output Total 200 Balance 0 250 Lab Results Last 24 Hours: Laboratory Results - last 24 hr 04/24/18 Range/Units 06:10 NT-Pro-B Natriuret Pep 3532 H* (<=125) pg/mL Doc Results Last 24 Hours: Microbiology 04/20/18 17:15 Aerobic Blood Culture - Preliminary Blood - Venous - Lab Draw NO GROWTH AFTER 3 DAYS Anaerobic Blood Culture - Preliminary NO GROWTH AFTER 3 DAYS 04/20/18 17:20 Aerobic Blood Culture - Preliminary Blood - Venous NO GROWTH AFTER 3 DAYS Anaerobic Blood Culture - Preliminary NO GROWTH AFTER 3 DAYS Med Orders - Current: Current Medications Acetaminophen (Tylenol) 650 mg PO Q4H PRN PRN Reason: Pain Last Admin: 04/24/18 02:33 Dose: 650 mg Albuterol/Ipratropium (Duoneb 3.0-0.5 Mg/3 Ml) 3 ml NEB Q4H PRN PRN Reason: Shortness of Breath Last Admin: 04/24/18 07:17 Dose: 3 ml Apixaban (Eliquis) 5 mg PO BID [facility] Last Admin: 04/23/18 21:25 Dose: 5 mg Aspirin (Halfprin) 81 mg PO DAILY [facility] Last Admin: 04/23/18 08:18 Dose: 81 mg Diltiazem HCl (Dilacor Xr) 240 mg PO DAILY [facility] Last Admin: 04/23/18 09:35 Dose: 240 mg Furosemide (Lasix) 40 mg PO BIDDIURETIC [facility] Last Admin: 04/23/18 13:49 Dose: 40 mg Levofloxacin/Dextrose 750 mg/ (Premix) 150 mls @ 100 mls/hr IV Q24H [facility] Last Admin: 04/23/18 21:26 Dose: 100 mls/hr Piperacillin Sod/Tazobactam (Sod 3.375 gm/ Sodium Chloride) 50 mls @ 100 mls/ hr IV Q6H [facility] Last Admin: 04/24/18 04:00 Dose: 100 mls/hr Vancomycin HCl 750 mg/Vancomycin HCl 500 mg/ Sodium Chloride 250 mls @ 167 mls/ hr IV Q12H [facility] Last Admin: 04/24/18 00:29 Dose: 167 mls/hr Magnesium Hydroxide (Milk Of Magnesia) 30 ml PO DAILY PRN PRN Reason: Constipation Last Admin: 04/23/18 14:45 Dose: 30 ml Methylprednisolone Sodium Succinate (Solu-Medrol) 125 mg IVPUSH Q8H [facility] Last Admin: 04/24/18 00:29 Dose: 125 mg Metolazone (Zaroxolyn) 5 mg PO ONETIME ONE Stop: 04/24/18 08:02 Mometasone Furoate/Formoterol Fumar (Dulera 100-5 Mcg) 2 puff IH BID [facility] Last Admin: 04/23/18 21:25 Dose: 2 puff Nicotine (Habitrol) 21 mg TRDERM DAILY [facility] Last Admin: 04/23/18 08:20 Dose: 21 mg Polyethylene Glycol (Miralax) 17 gm PO BEDTIME PRN PRN Reason: Constipation Last Admin: 04/22/18 22:48 Dose: 17 gm Sodium Chloride (Saline Flush) 10 ml FLUSH ASDIRECTED PRN PRN Reason: Keep Vein Open Last Admin: 04/24/18 04:47 Dose: 10 ml Vancomycin HCl (Pharmacy To Dose - Vancomycin) 0 dose .XX ASDIRECTED [facility] Discontinued Medications Albuterol/Ipratropium (Duoneb 3.0-0.5 Mg/3 Ml) 3 ml NEB ONETIME ONE Stop: 04/20/18 17:01 Last Admin: 04/20/18 17:32 Dose: 3 ml Diltiazem HCl (Cardizem Cd) 240 mg PO ONETIME ONE Stop: 04/21/18 18:53 Last Admin: 04/21/18 19:06 Dose: 240 mg Diltiazem HCl (Cardizem Cd) 300 mg PO DAILY [facility] Last Admin: 04/22/18 14:32 Dose: Not Given Sodium Chloride (Normal Saline) 500 mls @ 999 mls/hr IV .BOLUS ONE Stop: 04/20/18 18:15 Last Admin: 04/20/18 17:50 Dose: 999 mls/hr Levofloxacin/Dextrose 750 mg/ (Premix) 150 mls @ 100 mls/hr IV ONETIME ONE Stop: 04/20/18 20:21 Last Admin: 04/20/18 20:54 Dose: 100 mls/hr Levofloxacin/Dextrose (Levaquin In D5w 750 Mg/150 Ml) Confirm Administered Dose 150 mls @ as directed IV .STK-MED ONE Stop: 04/20/18 20:52 Last Admin: 04/20/18 21:57 Dose: Not Given Sodium Chloride (Normal Saline) 1,000 mls @ 125 mls/hr IV ASDIRECTED [facility] Last Admin: 04/20/18 22:18 Dose: 125 mls/hr Vancomycin HCl 1,500 mg/ (Sodium Chloride) 250 mls @ 167 mls/hr IV ONETIME STA Stop: 04/21/18 00:14 Last Admin: 04/21/18 17:20 Dose: Not Given Sodium Chloride (Normal Saline) 1,000 mls @ 125 mls/hr IV ASDIRECTED [facility] Vancomycin HCl 1,500 mg/ (Sodium Chloride) 500 mls @ 334.014 mls/hr IV ONETIME STA Stop: 04/21/18 00:14 Last Admin: 04/21/18 17:20 Dose: Not Given Vancomycin HCl 1,500 mg/ (Sodium Chloride) 500 mls @ 334.014 mls/hr IV ONETIME STA Stop: 04/21/18 01:01 Last Admin: 04/20/18 23:33 Dose: 334.014 mls/hr Magnesium Sulfate 2 gm/ Premix 50 mls @ 100 mls/hr IV ONETIME ONE Stop: 04/21/18 02:59 Last Admin: 04/21/18 02:33 Dose: 100 mls/hr Vancomycin HCl 1 gm/ Sodium (Chloride) 250 mls @ 167 mls/hr IV Q12H [facility] Last Admin: 04/22/18 14:33 Dose: Not Given Vancomycin HCl 1,000 mg/Vancomycin HCl 250 mg/ Sodium Chloride 250 mls @ 167 mls/hr IV Q12H [facility] Last Admin: 04/22/18 23:01 Dose: 167 mls/hr Vancomycin HCl 750 mg/Vancomycin HCl 500 mg/ Sodium Chloride 250 mls @ 167 mls/ hr IV Q12H [facility] Vancomycin HCl 1 gm/ Sodium (Chloride) 250 mls @ as directed IV .STK-MED ONE Stop: 04/21/18 11:44 Vancomycin HCl 1 gm/ Sodium (Chloride) 250 mls @ as directed IV .STK-MED ONE Stop: 04/21/18 22:34 Methylprednisolone Sodium Succinate (Solu-Medrol) 125 mg IVPUSH ONETIME ONE Stop: 04/20/18 17:01 Last Admin: 04/20/18 17:25 Dose: 125 mg Methylprednisolone Sodium Succinate (Solu-Medrol) 125 mg IVPUSH Q8H [facility] Last Admin: 04/21/18 17:20 Dose: Not Given Metoprolol Succinate (Toprol Xl) 50 mg PO DAILY [facility] Last Admin: 04/22/18 08:22 Dose: 50 mg - Exam Quality Assessment: Supplemental Oxygen General: Alert HEENT: Pupils Equal Lungs: Crackles, Wheezing Cardiovascular: Irregular Rhythm - Problem List & Annotations (1) Pneumonia SNOMED Code(s): 060431717 Code(s): J18.9 - PNEUMONIA, UNSPECIFIED ORGANISM Status: Acute Current Visit: Yes Qualifiers: Pneumonia type: due to unspecified organism Laterality: right (2) Afib SNOMED Code(s): 60065097 Code(s): I48.91 - UNSPECIFIED ATRIAL FIBRILLATION Status: Chronic Current Visit: No Qualifiers: Atrial fibrillation type: persistent Qualified Code(s): I48.1 - Persistent atrial fibrillation (3) COPD (chronic obstructive pulmonary disease) SNOMED Code(s): 77846666 Code(s): J44.9 - CHRONIC OBSTRUCTIVE PULMONARY DISEASE, UNSPECIFIED Status : Acute Current Visit: No Qualifiers: COPD type: COPD with acute lower respiratory infection Qualified Code(s): J44.0 - Chronic obstructive pulmonary disease with acute lower respiratory infection (4) Leg edema SNOMED Code(s): 543086349 Code(s): R60.0 - LOCALIZED EDEMA Status: Chronic Current Visit: No (5) Peripheral vascular disease SNOMED Code(s): 200585416 Code(s): I73.9 - PERIPHERAL VASCULAR DISEASE, UNSPECIFIED Status: Chronic Current Visit: No (6) Tobacco abuse SNOMED Code(s): 525724188 Code(s): Z72.0 - TOBACCO USE Status: Chronic Current Visit: No - Problem List Review Problem List Initiated/Reviewed/Updated: Yes - My Orders Last 24 Hours: My Active Orders 04/23/18 11:00 Vancomycin 750 mg Vancomycin 500 mg Sodium Chloride 0.9% [Normal Saline] 250 ml IV Q12H 04/23/18 13:58 Magnesium Hydroxide [Milk of Magnesia] 30 ml PO DAILY PRN 04/24/18 08:01 Metolazone [Zaroxolyn] 5 mg PO ONETIME ONE 04/25/18 05:11 BASIC METABOLIC PANEL,BMP [CHEM] AM CBC WITH AUTO DIFF [HEME] AM PRO B-TYPE NATRIUR PEPT,BNPPRO [CHEM] DAILY - Plan Plan:: Continue with IV antibiotic and Solu-Medrol. I'll continued with Cardizem as well.. I recommended daily weights, input and output, along with physical therapy. Also continue ambulation and incentive spirometry. Plan to repeat BNP CBC and basic profile in the morning. Probably discharge and then,with home o2
[2018-04-24] MEDS: Furosemide 40 MG Tab PO SCH ×2 (09:46→16:19)
[2018-04-24] MEDS: Formoterol/Mometasone 100-5 MCG 8.8 GM Inhaler IH SCH ×2 (09:47→20:43)
[2018-04-24] MEDS: Diltiazem 240 MG Cap.ER PO SCH (09:47)
[2018-04-24] MEDS: Nicotine 21 MG/24 Hr Patch TRDERM SCH (09:48)
[2018-04-24] MEDS: Apixaban 5 MG Tab PO SCH ×2 (09:48→20:43)
[2018-04-24] MEDS: Aspirin 81 MG Tab.EC PO SCH (09:59)
[2018-04-24] MEDS: Magnesium Hydroxide 400 MG/5 ML Susp 30 ML Cup PO PRN (13:15)
[2018-04-24] MEDS: Levofloxacin/Dextrose 5%-Water 750 MG in Premix Bag 1 BAG IV SCH (20:44)
[2018-04-25] MEDS: Sodium Chloride 0.9% 10 ML Syringe FLUSH PRN ×7 (00:44→12:58)
[2018-04-25] MEDS: methylPREDNISolone Sodium Succinate 125 MG/2 ML SDV IVPUSH SCH ×2 (01:30→08:36)
[2018-04-25] MEDS: Piperacillin/Tazobactam 3.375 GM in Sodium Chloride 0.9% 50 ML IV SCH ×2 (04:00→10:16)
[2018-04-25] MEDS: Albuterol/Ipratropium 3.0-0.5 MG/3 ML Neb Soln NEB PRN ×2 (07:12→13:27)
[2018-04-25] MEDS ORDERED: Sodium Phosphate,Monobasic/Sodium Phosphate,Dibasic Enema 133 ML Bottle RECTAL ONE (08:27)
--- NOTE | 2018-04-25 08:33 | PCM.PN ---
- General Info Date of Service: 04/25/18 Subjective Update: Michelle is ready to go home today. Still short of breath on ambulation and needing 2 L of oxygenation. Functional Status: Reports: Pain Controlled, Tolerating Diet - Review of Systems Gastrointestinal: Reports: No Symptoms Genitourinary: Reports: No Symptoms Musculoskeletal: Reports: Foot Pain Skin: Reports: No Symptoms Neurological: Reports: No Symptoms - Patient Data Vitals - Most Recent: Last Vital Signs Temp 98.2 F 04/25/18 04:00 Pulse 86 04/25/18 04:00 Resp 20 04/25/18 04:00 BP 118/77 04/25/18 04:00 Pulse Ox 93 L 04/25/18 04:00 Weight - Most Recent: 75.75 kg I&O - Last 24 Hours: Intake & Output 04/24/18 04/25/18 04/25/18 22:59 06:59 14:59 Intake Total 143 187 Output Total 250 Balance -107 187 Lab Results Last 24 Hours: Laboratory Results - last 24 hr 04/25/18 04/25/18 04/25/18 Range/Units 06:40 06:40 06:40 WBC 14.2 H (4.5-12.0) X10-3/uL RBC 4.31 (4.30-5.75) x10(6)uL Hgb 12.6 (11.5-15.5) g/dL Hct 38.9 (30.0-51.3) % MCV 90.3 (80-96) fL MCH 29.3 (27.7-33.6) pg MCHC 32.5 (32.2-35.4) g/dL RDW 15.1 (11.5-15.5) % Plt Count 211 (125-369) X10(3)uL MPV 12.8 H (7.4-10.4) fL Add Manual Diff Yes Neutrophils % (Manual) 88 H (46-82) % Lymphocytes % (Manual) 8 L (13-37) % Monocytes % (Manual) 4 (4-12) % Giant Platelets Occasional Sodium 141 (135-145) mmol/L Potassium 3.1 L (3.5-5.3) mmol/L Chloride 98 L D (100-110) mmol/L Carbon Dioxide 40 H* (21-32) mmol/L BUN 43 H (7-18) mg/dL Creatinine 1.0 (0.70-1.30) mg/dL Est Cr Clr Drug Dosing 61.14 mL/min Estimated GFR (MDRD) > 60 (>60) BUN/Creatinine Ratio 43.0 H (9-20) Glucose 165 H (80-116) mg/dL Calcium 9.2 (8.6-10.2) mg/dL NT-Pro-B Natriuret Pep 3840 H* (<=125) pg/mL Doc Results Last 24 Hours: Microbiology 04/20/18 17:15 Aerobic Blood Culture - Preliminary Blood - Venous - Lab Draw NO GROWTH AFTER 4 DAYS Anaerobic Blood Culture - Preliminary NO GROWTH AFTER 4 DAYS 04/20/18 17:20 Aerobic Blood Culture - Preliminary Blood - Venous NO GROWTH AFTER 4 DAYS Anaerobic Blood Culture - Preliminary NO GROWTH AFTER 4 DAYS Med Orders - Current: Current Medications Acetaminophen (Tylenol) 650 mg PO Q4H PRN PRN Reason: Pain Last Admin: 04/24/18 16:47 Dose: 650 mg Albuterol/Ipratropium (Duoneb 3.0-0.5 Mg/3 Ml) 3 ml NEB Q4H PRN PRN Reason: Shortness of Breath Last Admin: 04/25/18 07:12 Dose: 3 ml Apixaban (Eliquis) 5 mg PO BID [facility] Last Admin: 04/24/18 20:43 Dose: 5 mg Aspirin (Halfprin) 81 mg PO DAILY [facility] Last Admin: 04/24/18 09:59 Dose: 81 mg Diltiazem HCl (Dilacor Xr) 240 mg PO DAILY [facility] Last Admin: 04/24/18 09:47 Dose: 240 mg Furosemide (Lasix) 40 mg PO BIDDIURETIC [facility] Last Admin: 04/24/18 16:19 Dose: 40 mg Levofloxacin/Dextrose 750 mg/ (Premix) 150 mls @ 100 mls/hr IV Q24H [facility] Last Admin: 04/24/18 20:44 Dose: 100 mls/hr Piperacillin Sod/Tazobactam (Sod 3.375 gm/ Sodium Chloride) 50 mls @ 100 mls/ hr IV Q6H [facility] Last Admin: 04/25/18 04:00 Dose: 100 mls/hr Vancomycin HCl 750 mg/Vancomycin HCl 500 mg/ Sodium Chloride 250 mls @ 167 mls/ hr IV Q12H [facility] Last Admin: 04/24/18 23:19 Dose: 167 mls/hr Magnesium Hydroxide (Milk Of Magnesia) 30 ml PO DAILY PRN PRN Reason: Constipation Last Admin: 04/24/18 13:15 Dose: 30 ml Methylprednisolone Sodium Succinate (Solu-Medrol) 125 mg IVPUSH Q8H [facility] Last Admin: 04/25/18 01:30 Dose: 125 mg Mometasone Furoate/Formoterol Fumar (Dulera 100-5 Mcg) 2 puff IH BID [facility] Last Admin: 04/24/18 20:43 Dose: 2 puff Nicotine (Habitrol) 21 mg TRDERM DAILY [facility] Last Admin: 04/24/18 09:48 Dose: 21 mg Polyethylene Glycol (Miralax) 17 gm PO BEDTIME PRN PRN Reason: Constipation Last Admin: 04/22/18 22:48 Dose: 17 gm Sodium Chloride (Saline Flush) 10 ml FLUSH ASDIRECTED PRN PRN Reason: Keep Vein Open Last Admin: 04/25/18 04:27 Dose: 10 ml Vancomycin HCl (Pharmacy To Dose - Vancomycin) 0 dose .XX ASDIRECTED [facility] Discontinued Medications Albuterol/Ipratropium (Duoneb 3.0-0.5 Mg/3 Ml) 3 ml NEB ONETIME ONE Stop: 04/20/18 17:01 Last Admin: 04/20/18 17:32 Dose: 3 ml Diltiazem HCl (Cardizem Cd) 240 mg PO ONETIME ONE Stop: 04/21/18 18:53 Last Admin: 04/21/18 19:06 Dose: 240 mg Diltiazem HCl (Cardizem Cd) 300 mg PO DAILY [facility] Last Admin: 04/22/18 14:32 Dose: Not Given Sodium Chloride (Normal Saline) 500 mls @ 999 mls/hr IV .BOLUS ONE Stop: 04/20/18 18:15 Last Admin: 04/20/18 17:50 Dose: 999 mls/hr Levofloxacin/Dextrose 750 mg/ (Premix) 150 mls @ 100 mls/hr IV ONETIME ONE Stop: 04/20/18 20:21 Last Admin: 04/20/18 20:54 Dose: 100 mls/hr Levofloxacin/Dextrose (Levaquin In D5w 750 Mg/150 Ml) Confirm Administered Dose 150 mls @ as directed IV .STK-MED ONE Stop: 04/20/18 20:52 Last Admin: 04/20/18 21:57 Dose: Not Given Sodium Chloride (Normal Saline) 1,000 mls @ 125 mls/hr IV ASDIRECTED [facility] Last Admin: 04/20/18 22:18 Dose: 125 mls/hr Vancomycin HCl 1,500 mg/ (Sodium Chloride) 250 mls @ 167 mls/hr IV ONETIME STA Stop: 04/21/18 00:14 Last Admin: 04/21/18 17:20 Dose: Not Given Sodium Chloride (Normal Saline) 1,000 mls @ 125 mls/hr IV ASDIRECTED [facility] Vancomycin HCl 1,500 mg/ (Sodium Chloride) 500 mls @ 334.014 mls/hr IV ONETIME STA Stop: 04/21/18 00:14 Last Admin: 04/21/18 17:20 Dose: Not Given Vancomycin HCl 1,500 mg/ (Sodium Chloride) 500 mls @ 334.014 mls/hr IV ONETIME STA Stop: 04/21/18 01:01 Last Admin: 04/20/18 23:33 Dose: 334.014 mls/hr Magnesium Sulfate 2 gm/ Premix 50 mls @ 100 mls/hr IV ONETIME ONE Stop: 04/21/18 02:59 Last Admin: 04/21/18 02:33 Dose: 100 mls/hr Vancomycin HCl 1 gm/ Sodium (Chloride) 250 mls @ 167 mls/hr IV Q12H [facility] Last Admin: 04/22/18 14:33 Dose: Not Given Vancomycin HCl 1,000 mg/Vancomycin HCl 250 mg/ Sodium Chloride 250 mls @ 167 mls/hr IV Q12H [facility] Last Admin: 04/22/18 23:01 Dose: 167 mls/hr Vancomycin HCl 750 mg/Vancomycin HCl 500 mg/ Sodium Chloride 250 mls @ 167 mls/ hr IV Q12H [facility] Vancomycin HCl 1 gm/ Sodium (Chloride) 250 mls @ as directed IV .STK-MED ONE Stop: 04/21/18 11:44 Vancomycin HCl 1 gm/ Sodium (Chloride) 250 mls @ as directed IV .STK-MED ONE Stop: 04/21/18 22:34 Methylprednisolone Sodium Succinate (Solu-Medrol) 125 mg IVPUSH ONETIME ONE Stop: 04/20/18 17:01 Last Admin: 04/20/18 17:25 Dose: 125 mg Methylprednisolone Sodium Succinate (Solu-Medrol) 125 mg IVPUSH Q8H [facility] Last Admin: 04/21/18 17:20 Dose: Not Given Metolazone (Zaroxolyn) 5 mg PO ONETIME ONE Stop: 04/24/18 08:02 Last Admin: 04/24/18 09:47 Dose: 5 mg Metoprolol Succinate (Toprol Xl) 50 mg PO DAILY [facility] Last Admin: 04/22/18 08:22 Dose: 50 mg Sodium Biphosphate/Sodium Phosphate (Fleet Enema) 133 ml RECTAL ONETIME ONE Stop: 04/25/18 08:28 - Exam Quality Assessment: Supplemental Oxygen General: Alert HEENT: Pupils Equal Neck: Supple Lungs: Clear to Auscultation Cardiovascular: Regular Rate - Problem List & Annotations (1) Pneumonia SNOMED Code(s): 391859295 Code(s): J18.9 - PNEUMONIA, UNSPECIFIED ORGANISM Status: Acute Current Visit: Yes Qualifiers: Pneumonia type: due to unspecified organism Laterality: right (2) Afib SNOMED Code(s): 71397783 Code(s): I48.91 - UNSPECIFIED ATRIAL FIBRILLATION Status: Chronic Current Visit: No Qualifiers: Atrial fibrillation type: persistent Qualified Code(s): I48.1 - Persistent atrial fibrillation (3) COPD (chronic obstructive pulmonary disease) SNOMED Code(s): 79610975 Code(s): J44.9 - CHRONIC OBSTRUCTIVE PULMONARY DISEASE, UNSPECIFIED Status : Acute Current Visit: No Qualifiers: COPD type: COPD with acute lower respiratory infection Qualified Code(s): J44.0 - Chronic obstructive pulmonary disease with acute lower respiratory infection (4) Leg edema SNOMED Code(s): 891471361 Code(s): R60.0 - LOCALIZED EDEMA Status: Chronic Current Visit: No (5) Peripheral vascular disease SNOMED Code(s): 003392506 Code(s): I73.9 - PERIPHERAL VASCULAR DISEASE, UNSPECIFIED Status: Chronic Current Visit: No (6) Tobacco abuse SNOMED Code(s): 811838743 Code(s): Z72.0 - TOBACCO USE Status: Chronic Current Visit: No - Problem List Review Problem List Initiated/Reviewed/Updated: Yes - Plan Plan:: I will discharge Lemuel home today on home O2, oral prednisone and oral antibiotics. He also go home on Home O2 & and we decided to go with [facility] for rate control.
[2018-04-25] MEDS: Diltiazem 240 MG Cap.ER PO SCH (08:34)
[2018-04-25] MEDS: Furosemide 40 MG Tab PO SCH ×2 (08:34→14:14)
[2018-04-25] MEDS: Apixaban 5 MG Tab PO SCH (08:35)
[2018-04-25] MEDS: Formoterol/Mometasone 100-5 MCG 8.8 GM Inhaler IH SCH (08:35)
[2018-04-25] MEDS: Aspirin 81 MG Tab.EC PO SCH (08:36)
[2018-04-25] MEDS: Nicotine 21 MG/24 Hr Patch TRDERM SCH (08:39)
[2018-04-25] MEDS: Vancomycin 750 MG, Vancomycin 500 MG in Sodium Chloride 0.9% 250 ML IV SCH (11:27)
[2018-04-25 13:22] VITALS: BP 146/78
--- NOTE | 2018-04-25 13:30 | DISCH ---
DISCHARGE DATE: 04/25/2018 REASON FOR ADMISSION: Pneumonia. DISCHARGE DIAGNOSES: 1. Community-acquired pneumonia. 2. Chronic obstructive pulmonary disease. 3. Congestive heart failure. 4. Atrial fibrillation. 5. Peripheral vascular disease. 6. Tobacco abuse. BRIEF HISTORY AND HOSPITAL COURSE: Lemuel is a 72-year-old male, who was admitted with a cough, fever, and found to have pneumonia on a chest x-ray. He had recently been hospitalized about a month ago for atrial fibrillation and cellulitis. He was started on triple therapy for healthcare-associated pneumonia; Zosyn, Levaquin, and vancomycin. He continued to need oxygen despite ample therapy, but was feeling ready to go home on the . He had rapid response and atrial fibrillation that required Cardizem orally to control it. This was started despite previous suspicion of causing swelling of the legs. He was on anticoagulation in the hospital with Eliquis and aspirin. Tobacco abuse was discussed with the patient before discharge. DISCHARGE MEDICATIONS: 1. Prednisone 20 mg b.i.d. for 5 days. 2. Levaquin 500 mg p.o. daily for 3 days. 3. Eliquis 5 mg a day. 4. Cardizem 240 mg daily. 5. Aspirin 81 mg a day. 6. Potassium chloride 20 mEq b.i.d. 7. Lasix 40 mg b.i.d. 8. Albuterol p.r.n. 9. Acetaminophen as needed. 10.He will also go home on home oxygen 2 L continuously and he will go with home health to help with skilled care. FOLLOWUP: Followup appointment will be scheduled with PCP, KORINA Hooker, on April 30, 2018. TIME SPENT: Please note that I spent more than 35 minutes in the discharge of the patient. /[id number] ALISIA/EVELINAL
== END 2018-04-25 14:35 | disposition home health service (06) | DRG 190 ==
LOC: FB.ED 16:52 → FB.MS 19:44
PROVIDERS: ADMIT Family Medicine; ATTEND Family Medicine
DX: J44.0 Chronic obstructive pulmonary disease with (acute) lower respiratory infection (principal); J18.9 Pneumonia, unspecified organism; I48.1 Persistent atrial fibrillation; I73.9 Peripheral vascular disease, unspecified; F17.210 Nicotine dependence, cigarettes, uncomplicated; R60.0 Localized edema; R06.02 Shortness of breath; R53.1 Weakness; R09.02 Hypoxemia; I50.9 Heart failure, unspecified; Z99.81 Dependence on supplemental oxygen; F10.11 Alcohol abuse, in remission; M19.90 Unspecified osteoarthritis, unspecified site; Z87.01 Personal history of pneumonia (recurrent); H54.7 Unspecified visual loss; Z79.82 Long term (current) use of aspirin; Z79.01 Long term (current) use of anticoagulants; Z79.52 Long term (current) use of systemic steroids
CPT/HCPCS: 36415; 71045; 80048; 83605; 83880; 84484; 85025; 87040 ×2; 93005; 94640; 96361; 96374; 99285; J2930; J7040; J7050; J7620; 80053; 80202; 83735; 94150; 97165-GO; A9270-GY; J1956; J2543; J3370; J3475; J7030

== ENCOUNTER 2018-05-06 09:03 | Observation (INO) | payer MEDICARE, MEDICAID ==
--- NOTE | 2018-05-06 09:50 | EDM.PDOC ---
ED HPI GENERAL MEDICAL PROBLEM - General Chief Complaint: Abdominal Pain Stated Complaint: stomach pain Time Seen by Provider: 05/06/18 09:30 Source of Information: Reports: Patient, Old Records, RN Notes Reviewed History Limitations: Reports: No Limitations - History of Present Illness INITIAL COMMENTS - FREE TEXT/NARRATIVE: Lemuel comes into [facility] ED with a 3 day hx of intermittent voiding in small amounts, frequency of urination, some dysuria, and progressive suprapubic pain. He suspects problems with bladder emptying, last episode that required catheterization about 2 years ago. There is no back pain, fever, chills or sweats. He is unaware of any prostate disorder, no hx of stone disease, but was treated for pyleonephritis in the past. He reportedly has never seen a Urologist. His last visit with PCP was April 25 for edema of the legs, currently managed with Lasix 40 mg qd po. He has had edema in the past, including 2 hospitalizations for pneumonia over the past 5 weeks. An echocardiogram on 03/26/18 noted enlarged R atrium, R ventricle, LVEF 50%, and suspected PHTN. His BNP 6822 last month. Abdominal Pain Score (Numeric/FACES): 5 - Related Data Allergies Allergy/AdvReac Type Severity Reaction Status Date / Time No Known Allergies Allergy Verified 05/06/18 09:24 Home Meds: Home Meds Ascorbate Calcium [Vitamin C] 500 mg PO BID 03/25/18 [History] Apixaban [Eliquis] 5 mg PO BID #30 tablet 04/25/18 [Rx] Diltiazem [Dilacor XR] 240 mg PO DAILY #30 cap.er 04/25/18 [Rx] Furosemide [Lasix] 40 mg PO BIDDIURETIC #60 tablet 04/25/18 [Rx] Potassium Chloride [Klor-Con M20] 20 meq PO BID #30 tab.er.prt 04/25/18 [Rx] Albuterol/Ipratropium [DuoNeb 3.0-0.5 MG/3 ML] 3 ml IH 5XDAY PRN 05/06/18 [ History] Aspirin 81 mg PO DAILY 05/06/18 [History] Budesonide/Formoterol Fumarate [Symbicort 80-4.5 Mcg Inhaler] 2 puff IH BID 10/13 [History] Past Medical History HEENT History: Reports: Impaired Vision Cardiovascular History: Reports: Afib, Hypertension, Pulmonary Hypertension, SOB on Exertion Respiratory History: Reports: COPD, Pneumonia, Recurrent, SOB Gastrointestinal History: Reports: Other (See Below) Other Gastrointestinal History: Hx abdominal surgery not sure why. Hx GI + rectal bleeding, Genitourinary History: Reports: Pyelonephritis, Retention, Urinary Other Genitourinary History: Hx bladder infection 2 years ago. Musculoskeletal History: Reports: Arthritis, Back Pain, Chronic, Osteoporosis Other Musculoskeletal History: Hx bilateral shoulder discomfort. Hx of osteomyelitis of back. Neurological History: Reports: None Psychiatric History: Reports: None Endocrine/Metabolic History: Reports: Osteoporosis Other Endocrine/Metabolic History: had in past Hematologic History: Reports: None Immunologic History: Reports: None Oncologic (Cancer) History: Reports: None Dermatologic History: Reports: Other (See Below) Other Dermatologic History: Hx cellulitis of lower legs. - Infectious Disease History Infectious Disease History: Reports: Chicken Pox, Measles - Past Surgical History HEENT Surgical History: Reports: Oral Surgery GI Surgical History: Reports: Colonoscopy, Other (See Below) Other GI Surgeries/Procedures: Hx splenectomy at age 11. Musculoskeletal Surgical History: Reports: Shoulder Surgery, Other (See Below) Other Musculoskeletal Surgeries/Procedures:: States he had surgery for osteomyelitis in back, has plates and screws, ribs removed. Social & Family History - Family History Family Medical History: Noncontributory HEENT: Reports: Cataract, Impaired Vision Respiratory: Reports: Asthma Musculoskeletal: Reports: Arthritis Neurological: Reports: None - Tobacco Use Smoking Status *Q: Former Smoker Packs/Tins Daily: 1 Used Tobacco, but Quit: Yes Month/Year Tobacco Last Used: April 2018 Second Hand Smoke Exposure: No - Caffeine Use Caffeine Use: Reports: Coffee Caffeine Use Comment: 10 cups per day - Recreational Drug Use Recreational Drug Use: No ED ROS GENERAL - Review of Systems Review Of Systems: See Below Constitutional: Reports: Decreased Appetite HEENT: Reports: No Symptoms Respiratory: Reports: No Symptoms, Shortness of Breath (home 02 2L per rn medical inpatient services) Cardiovascular: Reports: Edema Endocrine: Reports: No Symptoms GI/Abdominal: Reports: Abdominal Pain, Decreased Appetite : Reports: Dysuria, Frequency, Pain, Urinary Retention Musculoskeletal: Reports: Back Pain Skin: Reports: No Symptoms Neurological: Reports: No Symptoms Psychiatric: Reports: No Symptoms Hematologic/Lymphatic: Reports: No Symptoms Immunologic: Reports: No Symptoms ED EXAM, RENAL/ - Physical Exam Exam: See Below Exam Limited By: Other (poor hygiene) General Appearance: Alert, WD/WN, Anxious, Mild Distress Eye Exam: Bilateral Eye: EOMI, Normal Inspection, PERRL Ears: Normal External Exam Nose: Normal Inspection Throat/Mouth: Normal Inspection, Normal Lips, Normal Voice, No Airway Compromise Head: Atraumatic, Normocephalic Neck: Normal Inspection, Supple, Non-Tender, Full Range of Motion Respiratory/Chest: No Respiratory Distress, No Accessory Muscle Use, Chest Non- Tender, Decreased Breath Sounds, Prolonged Expiration Cardiovascular: No JVD, No Murmur, Irregularly Irregular, Other (dependent edema ) GI/Abdominal: Normal Bowel Sounds, Soft, Distended, Guarding (suprapubic), Tender (suprapubic) (Male) Exam: No Hernia, Normal Prostate Rectal (Males) Exam: Normal Exam, Normal Rectal Tone, Prostate Normal Back Exam: Normal Inspection Extremities: Normal Inspection Neurological: Alert, Oriented, CN II-XII Intact, Normal Cognition, No Motor/ Sensory Deficits Psychiatric: Normal Affect, Anxious Skin Exam: Warm, Dry, Intact, Normal Color, Other (poor hygiene) Lymphatic: No Adenopathy Course - Vital Signs Text/Narrative:: Following initial assessment at the [facility] ED, a bladder scan noted 999 ml volume. A 16F monet catheter was inserted without difficulty, and collected 2950 ml of urine, sent to lab. There was improvement in sxs. Subsequent investigation noted Hgb13.5 gm, WBC 21,200, plts 111,000; BUN 39, Cr 0.9, BUN/ Cr 43.3; UA abnormal with pyuria, UC set up. Case discussed with Dr Quick, and Hdez will be admitted to Observation for medical managment. Last Recorded V/S: Last Vital Signs Temp 36.7 C 05/06/18 10:45 Pulse 115 H 05/06/18 10:45 Resp 20 05/06/18 10:45 BP 123/75 05/06/18 10:45 Pulse Ox 99 05/06/18 10:45 - Orders/Labs/Meds Orders: Active Orders 24 hr Category Date Time Status Monet Catheter Insertion [Insert Urinary Catheter] [OM. Care 05/06/18 09:45 Ordered PC] Q24H Oxygen Therapy Adult [Oxygen Therapy, ED] [RC] Care 05/06/18 10:15 Active ASDIRECTED Urinary Catheter Assessment [RC] QSHIFT Care 05/06/18 09:43 Active CULTURE URINE [RM] Stat Lab 05/06/18 09:52 Ordered UA W/MICROSCOPIC [URIN] Stat Lab 05/06/18 09:52 Ordered EKG 12 Lead [EK] Routine Ther 05/06/18 09:43 Ordered Labs: Laboratory Tests 05/06/18 05/06/18 05/06/18 Range/Units 09:50 09:50 09:52 WBC 21.2 H (4.5-12.0) X10-3/uL RBC 4.49 (4.30-5.75) x10(6)uL Hgb 13.5 (11.5-15.5) g/dL Hct 40.3 (30.0-51.3) % MCV 89.8 (80-96) fL MCH 30.0 (27.7-33.6) pg MCHC 33.4 (32.2-35.4) g/dL RDW 15.0 (11.5-15.5) % Plt Count 111 L (125-369) X10(3)uL MPV 12.4 H (7.4-10.4) fL Add Manual Diff Yes Neutrophils % (Manual) 82 (46-82) % Lymphocytes % (Manual) 16 (13-37) % Monocytes % (Manual) 2 L (4-12) % Sodium 139 (135-145) mmol/L Potassium 3.9 (3.5-5.3) mmol/L Chloride 100 (100-110) mmol/L Carbon Dioxide 35 H (21-32) mmol/L BUN 39 H (7-18) mg/dL Creatinine 0.9 (0.70-1.30) mg/dL Est Cr Clr Drug Dosing 63.04 mL/min Estimated GFR (MDRD) > 60 (>60) BUN/Creatinine Ratio 43.3 H (9-20) Glucose 109 (80-116) mg/dL Calcium 9.3 (8.6-10.2) mg/dL Urine Color Yellow (YELLOW) Urine Appearance Cloudy (CLEAR) Urine pH 6.5 (5.0-6.5) Ur Specific [place] 1.010 (1.010-1.025) Urine Protein Negative (NEGATIVE) mg/dL Urine Glucose (UA) Normal (NEGATIVE) mg/dL Urine Ketones Negative (NEGATIVE) mg/dL Urine Occult Blood Moderate H (NEGATIVE) Urine Nitrite Negative (NEGATIVE) Urine Bilirubin Negative (NEGATIVE) Urine Urobilinogen Normal (NEGATIVE) mg/dL Ur Leukocyte Esterase Large H (NEGATIVE) Urine RBC 20-30 H (0) Urine WBC >100 H (0) Ur Squamous Epith Cells Rare (NS,R,O) Urine Bacteria Moderate H (NS) Departure - Departure Time of Disposition: 10:57 Disposition: Refer to Observation Condition: Fair Clinical Impression: Urinary retention, Pyelonephritis - Discharge Information Referrals: Allyson Alejandro NP [Primary Care Provider] - Forms: ED Department Discharge - Problem List & Annotations (1) Pyelonephritis SNOMED Code(s): 36149804 Code(s): N12 - TUBULO-INTERSTITIAL NEPHRITIS, NOT SPCF ACUTE OR CHRONIC Status: Acute Current Visit: Yes Annotation/Comment:: Discussed with hospitalist and will admit, obtain cultures, and begin Levaquin IV. (2) Urinary retention SNOMED Code(s): 176705461 Code(s): R33.9 - RETENTION OF URINE, UNSPECIFIED Status: Acute Current Visit: Yes Annotation/Comment:: Monet cath to straight drainage. He will eventually need Urology consult. - Problem List Review Problem List Initiated/Reviewed/Updated: Yes - My Orders Last 24 Hours: My Active Orders 05/06/18 09:43 Urinary Catheter Assessment [RC] QSHIFT EKG 12 Lead [EK] Routine 05/06/18 09:45 Monet Catheter Insertion [Insert Urinary Catheter] [OM.PC] Q24H 05/06/18 09:52 CULTURE URINE [RM] Stat UA W/MICROSCOPIC [URIN] Stat 05/06/18 10:15 Oxygen Therapy Adult [Oxygen Therapy, ED] [RC] ASDIRECTED - Assessment/Plan Last 24 Hours: My Active Orders 05/06/18 09:43 Urinary Catheter Assessment [RC] QSHIFT EKG 12 Lead [EK] Routine 05/06/18 09:45 Monet Catheter Insertion [Insert Urinary Catheter] [OM.PC] Q24H 05/06/18 09:52 CULTURE URINE [RM] Stat UA W/MICROSCOPIC [URIN] Stat 05/06/18 10:15 Oxygen Therapy Adult [Oxygen Therapy, ED] [RC] ASDIRECTED Plan: Follow up with hospitalist.
[2018-05-06] MEDS ORDERED: Sodium Chloride 0.9% 10 ML Syringe FLUSH PRN (10:49)
[2018-05-06] MEDS: Dextrose 5%-Lactated Ringers 1,000 ML IV SCH ×2 (11:29→20:35)
[2018-05-06] MEDS: Levofloxacin/Dextrose 5%-Water 500 MG in Premix Bag 1 BAG IV SCH (12:59)
[2018-05-06] MEDS ORDERED: Nicotine 21 MG/24 Hr Patch TRDERM SCH (13:00)
--- NOTE | 2018-05-06 13:30 | CR ---
INDICATION: COPD. CHEST: An AP upright view of the chest was obtained 05/06/2018 and compared with 04/20/2018 and 04/16/2018, revealing significant decrease in the bibasilar pleural parenchymal changes, compatible with resolving bibasilar pneumonia and pleuritis. Residual is most prominent on the left. Findings remain compatible with COPD, ASHD with cardiomegaly, and previous lower thoracic/upper lumbar fusion. IMPRESSION: 1. Improving appearance of the chest with resolving bibasilar pneumonia and pleuritis suggested. 2. ASHD with probable cardiomegaly. 3. COPD. 4. Fusion thoracolumbar spine. 5. No new acute process. MTDD
[2018-05-06] MEDS ORDERED: Albuterol/Ipratropium 3.0-0.5 MG/3 ML Neb Soln INH PRN (17:20)
--- NOTE | 2018-05-06 17:55 | PCM.HP ---
H&P History of Present Illness - General Date of Service: 05/06/18 Admit Problem/Dx: Admission Diagnosis/Problem Admission Diagnosis/Problem Pyelonephritis Source of Information: Patient History Limitations: Reports: No Limitations - History of Present Illness Initial Comments - Free Text/Narative: This is a 72-year-old male patient for the last 3 days is having urine trickle down out and decreased urinary stream with some suprapubic pain. At the point where he was able to move urine so he came in. He's had some chills no dysuria, pyuria. Having some low back pain but no flank pain. Has history of COPD was in the hospital recently for pneumonia. Cough is improving. He was sent home on oxygen. Never seen the urologist. Abdominal Pain Score (Numeric/FACES): 5 - Related Data Allergies/Adverse Reactions: Allergies Allergy/AdvReac Type Severity Reaction Status Date / Time No Known Allergies Allergy Verified 05/06/18 09:24 Home Medications: Home Meds Ascorbate Calcium [Vitamin C] 500 mg PO BIDMEALS 03/25/18 [History] Diltiazem [Dilacor XR] 240 mg PO DAILY #30 cap.er 04/25/18 [Rx] Furosemide [Lasix] 40 mg PO BIDDIURETIC #60 tablet 04/25/18 [Rx] Albuterol/Ipratropium [DuoNeb 3.0-0.5 MG/3 ML] 3 ml IH 5XDAY PRN 05/06/18 [ History] Apixaban [Eliquis] 5 mg PO BIDMEALS 05/06/18 [History] Aspirin 81 mg PO DAILY 05/06/18 [History] Budesonide/Formoterol Fumarate [Symbicort 80-4.5 Mcg Inhaler] 2 puff IH BID 10/13 [History] Potassium Chloride [Klor-Con M20] 20 meq PO BIDMEALS 05/06/18 [History] Past Medical History HEENT History: Reports: Impaired Vision Cardiovascular History: Reports: Afib, Hypertension, Pulmonary Hypertension, PVD , SOB on Exertion Other Cardiovascular History: heartrate rapid admit to ER today 147 Respiratory History: Reports: COPD, Pneumonia, Recurrent, SOB Gastrointestinal History: Reports: Other (See Below) Other Gastrointestinal History: Hx abdominal surgery not sure why. Hx GI + rectal bleeding, Genitourinary History: Reports: Pyelonephritis, Retention, Urinary Other Genitourinary History: Hx bladder infection 2 years ago. Musculoskeletal History: Reports: Arthritis, Back Pain, Chronic, Osteoporosis Other Musculoskeletal History: Hx bilateral shoulder discomfort. Hx of osteomyelitis of back. Neurological History: Reports: None Psychiatric History: Reports: None Endocrine/Metabolic History: Reports: Osteoporosis Other Endocrine/Metabolic History: had in past Hematologic History: Reports: None Immunologic History: Reports: None Oncologic (Cancer) History: Reports: None Dermatologic History: Reports: Other (See Below) Other Dermatologic History: Hx cellulitis of lower legs. - Infectious Disease History Infectious Disease History: Reports: Chicken Pox, Measles - Past Surgical History Head Surgeries/Procedures: Reports: None HEENT Surgical History: Reports: Oral Surgery GI Surgical History: Reports: Colonoscopy, Other (See Below) Other GI Surgeries/Procedures: Hx splenectomy at age 11. Musculoskeletal Surgical History: Reports: Shoulder Surgery, Other (See Below) Other Musculoskeletal Surgeries/Procedures:: States he had surgery for osteomyelitis in back, has plates and screws, ribs removed. Social & Family History - Family History Family Medical History: Noncontributory HEENT: Reports: Cataract, Impaired Vision Respiratory: Reports: Asthma Musculoskeletal: Reports: Arthritis Neurological: Reports: None - Tobacco Use Smoking Status *Q: Former Smoker Years of Tobacco use: 35 Packs/Tins Daily: 1.5 Used Tobacco, but Quit: Yes Month/Year Tobacco Last Used: April 2018 Second Hand Smoke Exposure: No - Caffeine Use Caffeine Use: Reports: Coffee, Energy Drinks, Soda Caffeine Use Comment: 10 cups per day - Recreational Drug Use Recreational Drug Use: No H&P Review of Systems - Review of Systems: Review Of Systems: See Below General: Reports: Chills HEENT: Reports: No Symptoms Pulmonary: Reports: Cough Cardiovascular: Reports: No Symptoms Gastrointestinal: Reports: No Symptoms Genitourinary: Reports: Retention Musculoskeletal: Reports: No Symptoms Skin: Reports: No Symptoms Psychiatric: Reports: No Symptoms Neurological: Reports: No Symptoms Hematologic/Lymphatic: Reports: No Symptoms Immunologic: Reports: No Symptoms Exam - Exam Exam: See Below - Vital Signs Vital Signs: Last Vital Signs Temp 98.7 F 05/06/18 11:12 Pulse 78 05/06/18 11:12 Resp 14 05/06/18 11:12 BP 100/73 05/06/18 11:12 Pulse Ox 96 06/11/18 11:12 Weight: 145 lb 3.2 oz - Exam General: Alert, Oriented, Cooperative HEENT: Hearing Intact, Posterior Pharynx Clear, TMs Clear Neck: Supple, Trachea Midline Lungs: Clear to Auscultation, Normal Respiratory Effort Cardiovascular: Regular Rate, Irregular Rhythm. No: Tachycardia GI/Abdominal Exam: Normal Bowel Sounds, Soft, No Organomegaly, No Distention, Tender (Right upper quadrant) Rectal (Males) Exam: Other (Rectal deferred secondary the ER doc doing it.) Back Exam: Normal Inspection Skin: Warm, Dry, Intact Neurological: Normal Speech, Normal Tone Neuro Extensive - Mental Status: Alert, Oriented x3, Normal Mood/Affect, Normal Cognition, Memory Intact Psychiatric: Alert, Normal Affect, Normal Mood - Patient Data Lab Results Last 24 hrs: Laboratory Results - last 24 hr 05/06/18 05/06/18 05/06/18 Range/Units 09:50 09:50 09:52 WBC 21.2 H (4.5-12.0) X10-3/uL RBC 4.49 (4.30-5.75) x10(6)uL Hgb 13.5 (11.5-15.5) g/dL Hct 40.3 (30.0-51.3) % MCV 89.8 (80-96) fL MCH 30.0 (27.7-33.6) pg MCHC 33.4 (32.2-35.4) g/dL RDW 15.0 (11.5-15.5) % Plt Count 111 L (125-369) X10(3)uL MPV 12.4 H (7.4-10.4) fL Add Manual Diff Yes Neutrophils % (Manual) 82 (46-82) % Lymphocytes % (Manual) 16 (13-37) % Monocytes % (Manual) 2 L (4-12) % Sodium 139 (135-145) mmol/L Potassium 3.9 (3.5-5.3) mmol/L Chloride 100 (100-110) mmol/L Carbon Dioxide 35 H (21-32) mmol/L BUN 39 H (7-18) mg/dL Creatinine 0.9 (0.70-1.30) mg/dL Est Cr Clr Drug Dosing 63.04 mL/min Estimated GFR (MDRD) > 60 (>60) BUN/Creatinine Ratio 43.3 H (9-20) Glucose 109 (80-116) mg/dL Calcium 9.3 (8.6-10.2) mg/dL Urine Color Yellow (YELLOW) Urine Appearance Cloudy (CLEAR) Urine pH 6.5 (5.0-6.5) Ur Specific [place] 1.010 (1.010-1.025) Urine Protein Negative (NEGATIVE) mg/dL Urine Glucose (UA) Normal (NEGATIVE) mg/dL Urine Ketones Negative (NEGATIVE) mg/dL Urine Occult Blood Moderate H (NEGATIVE) Urine Nitrite Negative (NEGATIVE) Urine Bilirubin Negative (NEGATIVE) Urine Urobilinogen Normal (NEGATIVE) mg/dL Ur Leukocyte Esterase Large H (NEGATIVE) Urine RBC 20-30 H (0) Urine WBC >100 H (0) Ur Squamous Epith Cells Rare (NS,R,O) Urine Bacteria Moderate H (NS) Result Diagrams: 05/06/18 09:50 05/06/18 09:50 - Problem List (1) Pyelonephritis SNOMED Code(s): 41421429 ICD Code: N12 - TUBULO-INTERSTITIAL NEPHRITIS, NOT SPCF ACUTE OR CHRONIC Status: Acute Current Visit: Yes Problem Details: Discussed with hospitalist and will admit, obtain cultures, and begin Levaquin IV. (2) Urinary retention SNOMED Code(s): 006871908 ICD Code: R33.9 - RETENTION OF URINE, UNSPECIFIED Status: Acute Current Visit: Yes Problem Details: Rodríguez cath to straight drainage. He will eventually need Urology consult. (3) COPD (chronic obstructive pulmonary disease) SNOMED Code(s): 61928010 ICD Code: J44.9 - CHRONIC OBSTRUCTIVE PULMONARY DISEASE, UNSPECIFIED Status : Acute Current Visit: No Qualifiers: COPD type: COPD with acute lower respiratory infection Qualified Code(s): J44.0 - Chronic obstructive pulmonary disease with acute lower respiratory infection (4) Afib SNOMED Code(s): 68797501 ICD Code: I48.91 - UNSPECIFIED ATRIAL FIBRILLATION Status: Chronic Current Visit: No Qualifiers: Atrial fibrillation type: persistent Qualified Code(s): I48.1 - Persistent atrial fibrillation (5) Leg edema SNOMED Code(s): 690608348 ICD Code: R60.0 - LOCALIZED EDEMA Status: Chronic Current Visit: No (6) Palliative care status SNOMED Code(s): 710678061 ICD Code: Z51.5 - ENCOUNTER FOR PALLIATIVE CARE Status: Acute Current Visit: Yes Problem List Initiated/Reviewed/Updated: Yes Orders Last 24hrs: Active Orders 24 hr Category Date Time Status Rodríguez Catheter Insertion [Insert Urinary Catheter] [OM. Care 05/06/18 09:45 Ordered PC] Q24H Oxygen Therapy Adult [Oxygen Therapy] [RC] ASDIRECTED Care 05/06/18 12:34 Active Urinary Catheter Assessment [RC] 08,16,00 Care 05/06/18 09:43 Active CBC WITH AUTO DIFF [HEME] AM Lab 05/07/18 05:11 Ordered CULTURE BLOOD [BC] Stat Lab 05/06/18 11:00 Received CULTURE BLOOD [BC] Stat Lab 05/06/18 11:05 Received CULTURE URINE [RM] Stat Lab 05/06/18 09:52 Ordered UA W/MICROSCOPIC [URIN] Stat Lab 05/06/18 09:52 Ordered Albuterol/Ipratropium [DuoNeb 3.0-0.5 MG/3 ML] Med 05/06/18 17:20 Ordered 3 ml INH 5XDAY PRN Apixaban Med 05/06/18 18:00 Ordered 5 mg PO BIDMEALS Aspirin Med 05/07/18 09:00 Ordered 81 mg PO DAILY Budesonide/Formoterol Fumarate [Symbicort 80-4.5 Mcg Med 05/06/18 21:00 Ordered Inhaler] 2 puff IH BID Dextrose 5%-Lactated Ringers 1,000 ml Med 05/06/18 11:00 Active IV ASDIRECTED Diltiazem [Dilacor XR] Med 05/07/18 09:00 Ordered 240 mg PO DAILY Furosemide [Lasix] Med 05/07/18 08:00 Ordered 40 mg PO BIDDIURETIC Levofloxacin/Dextrose 5%-Water [Levaquin in D5W 500 MG/ Med 05/06/18 11:30 Active 100 ML] 500 mg Premix Bag 1 bag IV Q24H Nicotine [Habitrol] Med 05/06/18 13:00 Active 21 mg TRDERM DAILY@1300 Sodium Chloride 0.9% [Saline Flush] Med 05/06/18 10:49 Active 10 ml FLUSH ASDIRECTED PRN Peripheral IV Insertion Adult [OM.PC] Routine Oth 05/06/18 10:49 Ordered Resuscitation Status Routine Resus Stat 05/06/18 17:17 Ordered EKG 12 Lead [EK] Routine Ther 05/06/18 09:43 Ordered Medication Orders Albuterol/Ipratropium (Duoneb 3.0-0.5 Mg/3 Ml) 3 ml INH 5XDAY PRN PRN Reason: Dyspnea Aspirin (Aspirin) 81 mg PO DAILY SRAVAN Diltiazem HCl (Dilacor Xr) 240 mg PO DAILY SRAVAN Furosemide (Lasix) 40 mg PO BIDDIURETIC SRAVAN Dextrose/Lactated Ringer's (Dextrose 5%-Lactated Ringers) 1,000 mls @ 125 mls/ hr IV ASDIRECTED [facility] Last Admin: 05/06/18 11:29 Dose: 125 mls/hr Levofloxacin/Dextrose 500 mg/ (Premix) 100 mls @ 100 mls/hr IV Q24H [facility] Last Admin: 05/06/18 12:59 Dose: 100 mls/hr Nicotine (Habitrol) 21 mg TRDERM DAILY@1300 [facility] Last Admin: 05/06/18 13:30 Dose: 21 mg Non-Formulary Medication (Apixaban) 5 mg PO BIDMEALS [facility] Non-Formulary Medication (Budesonide/Formoterol Fumarate [Symbicort 80-4.5 Mcg Inhaler]) 2 puff IH BID [facility] Sodium Chloride (Saline Flush) 10 ml FLUSH ASDIRECTED PRN PRN Reason: Keep Vein Open Last Admin: 05/06/18 11:05 Dose: 10 ml Assessment/Plan Comment:: 1. Admit for IV antibiotics and Rodríguez catheter. 2. Patient wants to be resuscitated. 3. VTE prophlaxis 4. Restart most of his medications. 5. IV antibiotics. 6. Repeat CBC in the a.m. 7. Catheter care. 8. Up ad yazmin.
[2018-05-06] MEDS ORDERED: ELIQUIS 5 MG PO SCH (18:00)
[2018-05-06] MEDS: Acetaminophen 325 MG Tab PO PRN (20:17)
[2018-05-06] MEDS: SYMBICORT IH SCH (21:24)
[2018-05-07] MEDS: hydrOXYzine HCl 25 MG Tab PO PRN ×2 (00:07→04:19)
[2018-05-07] MEDS: Dextrose 5%-Lactated Ringers 1,000 ML IV SCH (04:40)
--- NOTE | 2018-05-07 07:45 | PCM.PN ---
- General Info Date of Service: 05/07/18 Admission Dx/Problem (Free Text): Patient stated his daughter tripped over his catheter and pulled on the penis and cause a lot of pain. There is some blood in the catheter according the patient and notes clearing. He has no flank pain, fevers chills or abdominal pain. - Patient Data Vitals - Most Recent: Last Vital Signs Temp 98.1 F 05/07/18 00:00 Pulse 88 05/07/18 00:00 Resp 16 05/07/18 00:00 BP 102/67 05/07/18 00:00 Pulse Ox 97 05/07/18 00:00 Weight - Most Recent: 145 lb 3.2 oz I&O - Last 24 Hours: Intake & Output 05/06/18 05/07/18 05/07/18 22:59 06:59 14:59 Intake Total 692 1028 Output Total 1300 600 Balance -608 428 Lab Results Last 24 Hours: Laboratory Results - last 24 hr 05/06/18 05/06/18 05/06/18 Range/Units 09:50 09:50 09:52 WBC 21.2 H (4.5-12.0) X10-3/uL RBC 4.49 (4.30-5.75) x10(6)uL Hgb 13.5 (11.5-15.5) g/dL Hct 40.3 (30.0-51.3) % MCV 89.8 (80-96) fL MCH 30.0 (27.7-33.6) pg MCHC 33.4 (32.2-35.4) g/dL RDW 15.0 (11.5-15.5) % Plt Count 111 L (125-369) X10(3)uL MPV 12.4 H (7.4-10.4) fL Add Manual Diff Yes Neutrophils % (Manual) 82 (46-82) % Band Neutrophils % (0-6) % Lymphocytes % (Manual) 16 (13-37) % Monocytes % (Manual) 2 L (4-12) % Eosinophils % (Manual) (0-5) % Sodium 139 (135-145) mmol/L Potassium 3.9 (3.5-5.3) mmol/L Chloride 100 (100-110) mmol/L Carbon Dioxide 35 H (21-32) mmol/L BUN 39 H (7-18) mg/dL Creatinine 0.9 (0.70-1.30) mg/dL Est Cr Clr Drug Dosing 63.04 mL/min Estimated GFR (MDRD) > 60 (>60) BUN/Creatinine Ratio 43.3 H (9-20) Glucose 109 (80-116) mg/dL Calcium 9.3 (8.6-10.2) mg/dL Urine Color Yellow (YELLOW) Urine Appearance Cloudy (CLEAR) Urine pH 6.5 (5.0-6.5) Ur Specific [place] 1.010 (1.010-1.025) Urine Protein Negative (NEGATIVE) mg/dL Urine Glucose (UA) Normal (NEGATIVE) mg/dL Urine Ketones Negative (NEGATIVE) mg/dL Urine Occult Blood Moderate H (NEGATIVE) Urine Nitrite Negative (NEGATIVE) Urine Bilirubin Negative (NEGATIVE) Urine Urobilinogen Normal (NEGATIVE) mg/dL Ur Leukocyte Esterase Large H (NEGATIVE) Urine RBC 20-30 H (0) Urine WBC >100 H (0) Ur Squamous Epith Cells Rare (NS,R,O) Urine Bacteria Moderate H (NS) /12/18 Range/Units 06:05 WBC 15.1 H (4.5-12.0) X10-3/uL RBC 3.89 L (4.30-5.75) x10(6)uL Hgb 11.5 (11.5-15.5) g/dL Hct 34.9 (30.0-51.3) % MCV 89.7 (80-96) fL MCH 29.7 (27.7-33.6) pg MCHC 33.1 (32.2-35.4) g/dL RDW 15.5 (11.5-15.5) % Plt Count 84 L (125-369) X10(3)uL MPV 12.6 H (7.4-10.4) fL Add Manual Diff Yes Neutrophils % (Manual) 75 (46-82) % Band Neutrophils % 8 H (0-6) % Lymphocytes % (Manual) 10 L (13-37) % Monocytes % (Manual) 5 (4-12) % Eosinophils % (Manual) 2 (0-5) % Sodium (135-145) mmol/L Potassium (3.5-5.3) mmol/L Chloride (100-110) mmol/L Carbon Dioxide (21-32) mmol/L BUN (7-18) mg/dL Creatinine (0.70-1.30) mg/dL Est Cr Clr Drug Dosing mL/min Estimated GFR (MDRD) (>60) BUN/Creatinine Ratio (9-20) Glucose (80-116) mg/dL Calcium (8.6-10.2) mg/dL Urine Color (YELLOW) Urine Appearance (CLEAR) Urine pH (5.0-6.5) Ur Specific [place] (1.010-1.025) Urine Protein (NEGATIVE) mg/dL Urine Glucose (UA) (NEGATIVE) mg/dL Urine Ketones (NEGATIVE) mg/dL Urine Occult Blood (NEGATIVE) Urine Nitrite (NEGATIVE) Urine Bilirubin (NEGATIVE) Urine Urobilinogen (NEGATIVE) mg/dL Ur Leukocyte Esterase (NEGATIVE) Urine RBC (0) Urine WBC (0) Ur Squamous Epith Cells (NS,R,O) Urine Bacteria (NS) Doc Results Last 24 Hours: Microbiology 05/06/18 09:52 Urine Culture - Preliminary Urine, Catheterized Yeast Isolated Med Orders - Current: Current Medications Acetaminophen (Tylenol) 650 mg PO Q4H PRN PRN Reason: pain or headache Last Admin: 05/06/18 20:17 Dose: 650 mg Albuterol/Ipratropium (Duoneb 3.0-0.5 Mg/3 Ml) 3 ml INH 5XDAY PRN PRN Reason: Dyspnea Apixaban (Eliquis) 5 mg PO BIDMEALS [facility] Aspirin (Aspirin) 81 mg PO DAILY [facility] Diltiazem HCl (Dilacor Xr) 240 mg PO DAILY [facility] Furosemide (Lasix) 40 mg PO BIDDIURETIC [facility] Hydroxyzine HCl (Atarax) 25 mg PO BEDTIME PRN PRN Reason: Insomnia Last Admin: 05/07/18 04:19 Dose: 25 mg Dextrose/Lactated Ringer's (Dextrose 5%-Lactated Ringers) 1,000 mls @ 125 mls/ hr IV ASDIRECTED [facility] Last Admin: 05/07/18 04:40 Dose: 125 mls/hr Levofloxacin/Dextrose 500 mg/ (Premix) 100 mls @ 100 mls/hr IV Q24H [facility] Last Admin: 05/06/18 12:59 Dose: 100 mls/hr Nicotine (Habitrol) 21 mg TRDERM DAILY@1300 [facility] Last Admin: 05/06/18 13:30 Dose: 21 mg Symbicort 80-4.5 Mcg Inhaler Own Med* * 0 puff IH BID [facility] Last Admin: 05/06/18 21:24 Dose: 2 puff Sodium Chloride (Saline Flush) 10 ml FLUSH ASDIRECTED PRN PRN Reason: Keep Vein Open Last Admin: 05/06/18 11:05 Dose: 10 ml Discontinued Medications Eliquis (Apixaban) 5 (Mg Tab Own Med) 0 mg PO BIDMEALS [facility] - Exam General: Alert, Oriented GI/Abdominal Exam: Normal Bowel Sounds, Soft, Non-Tender Back Exam: No: CVA Tenderness (R), CVA Tenderness (L) - Problem List & Annotations (1) Pyelonephritis SNOMED Code(s): 23592572 Code(s): N12 - TUBULO-INTERSTITIAL NEPHRITIS, NOT SPCF ACUTE OR CHRONIC Status: Acute Current Visit: Yes Annotation/Comment:: Discussed with hospitalist and will admit, obtain cultures, and begin Levaquin IV. (2) Urinary retention SNOMED Code(s): 381293809 Code(s): R33.9 - RETENTION OF URINE, UNSPECIFIED Status: Acute Current Visit: Yes Annotation/Comment:: Rodríguez cath to straight drainage. He will eventually need Urology consult. (3) COPD (chronic obstructive pulmonary disease) SNOMED Code(s): 24880368 Code(s): J44.9 - CHRONIC OBSTRUCTIVE PULMONARY DISEASE, UNSPECIFIED Status : Acute Current Visit: No Qualifiers: COPD type: COPD with acute lower respiratory infection Qualified Code(s): J44.0 - Chronic obstructive pulmonary disease with acute lower respiratory infection (4) Afib SNOMED Code(s): 09865707 Code(s): I48.91 - UNSPECIFIED ATRIAL FIBRILLATION Status: Chronic Current Visit: No Qualifiers: Atrial fibrillation type: persistent Qualified Code(s): I48.1 - Persistent atrial fibrillation (5) Leg edema SNOMED Code(s): 675608008 Code(s): R60.0 - LOCALIZED EDEMA Status: Chronic Current Visit: No (6) Palliative care status SNOMED Code(s): 486242281 Code(s): Z51.5 - ENCOUNTER FOR PALLIATIVE CARE Status: Acute Current Visit: Yes - Problem List Review Problem List Initiated/Reviewed/Updated: Yes - My Orders Last 24 Hours: My Active Orders 05/06/18 12:34 Oxygen Therapy Adult [Oxygen Therapy] [RC] ASDIRECTED 05/06/18 13:00 Nicotine [Habitrol] 21 mg TRDERM DAILY@1300 05/06/18 17:17 Resuscitation Status Routine 05/06/18 17:20 Albuterol/Ipratropium [DuoNeb 3.0-0.5 MG/3 ML] 3 ml INH 5XDAY PRN 05/06/18 17:56 Up ad Ciera [RC] ASDIRECTED Vital Signs [] 08,16,00 05/06/18 19:36 Acetaminophen [Tylenol] 650 mg PO Q4H PRN 05/06/18 21:00 Budesonide/Formoterol Fumarate [Symbicort 80-4.5 Mcg Inhaler] 0 puff IH BID 05/06/18 23:39 hydrOXYzine HCl [Atarax] 25 mg PO BEDTIME PRN 05/07/18 08:00 Apixaban [Eliquis] 5 mg PO BIDMEALS Furosemide [Lasix] 40 mg PO BIDDIURETIC 05/07/18 09:00 Aspirin 81 mg PO DAILY Diltiazem [Dilacor XR] 240 mg PO DAILY 05/07/18 Lunch Adult Diet [DIET] - Plan Plan:: 1. Discharge to home on Flomax 0.4 mg a day. 2. Cipro 500 mg twice a day for 9 days. 3. Tramadol for penile pain when necessary. 4. Conitnue indwelling catheter. 5. Recheck with primary provider as set up urology appointment outpatient. 6. Discussed possibility of having home health see him. He defers.
[2018-05-07 07:59] VITALS: BP 122/66
[2018-05-07] MEDS ORDERED: Furosemide 40 MG Tab *PTOM PO SCH (08:00)
[2018-05-07] MEDS ORDERED: Apixaban 5 MG Tab *PTOM PO SCH (08:00)
--- NOTE | 2018-05-07 08:31 | PCM.DCSUM1 ---
Discharge Summary - Hospital Course Free Text/Narrative:: Hospital course-patient had a Rodríguez catheter placed and urinated 3000 mL. He felt much better. White count was 21,000 and he was started on Levaquin. Patient had no abdominal pain after his catheter was placed or CVA tenderness. He had no fevers while he was here. His watch for 24 hours as white count came down to 13,000. BUN/creatinine were normal on admission. He states he's had this before. He was on some medicine for his prostate which he didn't remember he says it worked. But then he ran out of been stopped. I'll put him on Cipro 500 twice a day, Flomax 0.4 mg a day and then some tramadol for penile pain which she's having after his daughter pulled on the catheter by accident. Help him follow-up with his primary provider this week to get into urology plated. He 'll go home with a catheter. I did offer him home health. He says he can stay home and does not want to do it. His daughter is concerned about his well- being. Social service will see him. Brief History: This is a 72-year-old male patient for the last 3 days is having urine trickle down out and decreased urinary stream with some suprapubic pain. At the point where he was able to move urine so he came in. He's had some chills no dysuria, pyuria. Having some low back pain but no flank pain. Has history of COPD was in the hospital recently for pneumonia. Cough is improving. He was sent home on oxygen. Never seen the urologist. - Discharge Data Discharge Date: 05/07/18 Discharge Disposition: Home, Self-Care 01 Condition: Good - Discharge Diagnosis/Problem(s) (1) Pyelonephritis SNOMED Code(s): 44179603 ICD Code: N12 - TUBULO-INTERSTITIAL NEPHRITIS, NOT SPCF ACUTE OR CHRONIC Status: Acute Current Visit: Yes Problem Details: Discussed with hospitalist and will admit, obtain cultures, and begin Levaquin IV. (2) Urinary retention SNOMED Code(s): 710502429 ICD Code: R33.9 - RETENTION OF URINE, UNSPECIFIED Status: Acute Current Visit: Yes Problem Details: Rodríguez cath to straight drainage. He will eventually need Urology consult. (3) COPD (chronic obstructive pulmonary disease) SNOMED Code(s): 19087706 ICD Code: J44.9 - CHRONIC OBSTRUCTIVE PULMONARY DISEASE, UNSPECIFIED Status : Acute Current Visit: No Qualifiers: COPD type: COPD with acute lower respiratory infection Qualified Code(s): J44.0 - Chronic obstructive pulmonary disease with acute lower respiratory infection (4) Afib SNOMED Code(s): 19277133 ICD Code: I48.91 - UNSPECIFIED ATRIAL FIBRILLATION Status: Chronic Current Visit: No Qualifiers: Atrial fibrillation type: persistent Qualified Code(s): I48.1 - Persistent atrial fibrillation (5) Leg edema SNOMED Code(s): 233288827 ICD Code: R60.0 - LOCALIZED EDEMA Status: Chronic Current Visit: No (6) Palliative care status SNOMED Code(s): 988851575 ICD Code: Z51.5 - ENCOUNTER FOR PALLIATIVE CARE Status: Acute Current Visit: Yes - Patient Instructions Diet: Regular Diet as Tolerated Activity: As Tolerated Driving: May Drive Today Showering/Bathing: May Shower Other/Special Instructions: 1. Recheck with Maria Eugenia Alejandro in 2-4 days. 2. K at the appt. 3. Rodríguez cath. 4. Urology appt. I will have Allyson set this up. - Discharge Plan Prescriptions/Med Rec: Ciprofloxacin HCl [Cipro] 500 mg PO BID #18 tablet Tamsulosin HCl [Flomax] 0.4 mg PO DAILY #30 cap.er.24h traMADol [Ultram] 50 mg PO Q4H PRN #30 tab PRN Reason: Pain Home Medications: Home Meds Ascorbate Calcium [Vitamin C] 500 mg PO BIDMEALS 03/25/18 [History] Diltiazem [Dilacor XR] 240 mg PO DAILY #30 cap.er 04/25/18 [Rx] Furosemide [Lasix] 40 mg PO BIDDIURETIC #60 tablet 04/25/18 [Rx] Albuterol/Ipratropium [DuoNeb 3.0-0.5 MG/3 ML] 3 ml IH 5XDAY PRN 05/06/18 [ History] Apixaban [Eliquis] 5 mg PO BIDMEALS 05/06/18 [History] Aspirin 81 mg PO DAILY 05/06/18 [History] Budesonide/Formoterol Fumarate [Symbicort 80-4.5 Mcg Inhaler] 2 puff IH BID 10/13 [History] Ciprofloxacin HCl [Cipro] 500 mg PO BID #18 tablet 05/07/18 [Rx] Tamsulosin HCl [Flomax] 0.4 mg PO DAILY #30 cap.er.24h 05/07/18 [Rx] traMADol [Ultram] 50 mg PO Q4H PRN #30 tab 05/07/18 [Rx] Forms: ED Department Discharge Referrals: Allyson Alejandro NP [Primary Care Provider] - - Discharge Summary/Plan Comment DC Time >30 min.: No - Patient Data Vitals - Most Recent: Last Vital Signs Temp 98.1 F 05/07/18 07:20 Pulse 110 H 05/07/18 07:20 Resp 18 05/07/18 07:20 BP 122/66 05/07/18 07:20 Pulse Ox 96 05/07/18 07:20 Weight - Most Recent: 145 lb 3.2 oz I&O - Last 24 hours: Intake & Output 05/06/18 05/07/18 05/07/18 22:59 06:59 14:59 Intake Total 692 1028 Output Total 1300 600 Balance -608 428 Lab Results - Last 24 hrs: Laboratory Results - last 24 hr 05/06/18 05/06/18 05/06/18 Range/Units 09:50 09:50 09:52 WBC 21.2 H (4.5-12.0) X10-3/uL RBC 4.49 (4.30-5.75) x10(6)uL Hgb 13.5 (11.5-15.5) g/dL Hct 40.3 (30.0-51.3) % MCV 89.8 (80-96) fL MCH 30.0 (27.7-33.6) pg MCHC 33.4 (32.2-35.4) g/dL RDW 15.0 (11.5-15.5) % Plt Count 111 L (125-369) X10(3)uL MPV 12.4 H (7.4-10.4) fL Add Manual Diff Yes Neutrophils % (Manual) 82 (46-82) % Band Neutrophils % (0-6) % Lymphocytes % (Manual) 16 (13-37) % Monocytes % (Manual) 2 L (4-12) % Eosinophils % (Manual) (0-5) % Sodium 139 (135-145) mmol/L Potassium 3.9 (3.5-5.3) mmol/L Chloride 100 (100-110) mmol/L Carbon Dioxide 35 H (21-32) mmol/L BUN 39 H (7-18) mg/dL Creatinine 0.9 (0.70-1.30) mg/dL Est Cr Clr Drug Dosing 63.04 mL/min Estimated GFR (MDRD) > 60 (>60) BUN/Creatinine Ratio 43.3 H (9-20) Glucose 109 (80-116) mg/dL Calcium 9.3 (8.6-10.2) mg/dL Urine Color Yellow (YELLOW) Urine Appearance Cloudy (CLEAR) Urine pH 6.5 (5.0-6.5) Ur Specific [place] 1.010 (1.010-1.025) Urine Protein Negative (NEGATIVE) mg/dL Urine Glucose (UA) Normal (NEGATIVE) mg/dL Urine Ketones Negative (NEGATIVE) mg/dL Urine Occult Blood Moderate H (NEGATIVE) Urine Nitrite Negative (NEGATIVE) Urine Bilirubin Negative (NEGATIVE) Urine Urobilinogen Normal (NEGATIVE) mg/dL Ur Leukocyte Esterase Large H (NEGATIVE) Urine RBC 20-30 H (0) Urine WBC >100 H (0) Ur Squamous Epith Cells Rare (NS,R,O) Urine Bacteria Moderate H (NS) 06/12/18 Range/Units 06:05 WBC 15.1 H (4.5-12.0) X10-3/uL RBC 3.89 L (4.30-5.75) x10(6)uL Hgb 11.5 (11.5-15.5) g/dL Hct 34.9 (30.0-51.3) % MCV 89.7 (80-96) fL MCH 29.7 (27.7-33.6) pg MCHC 33.1 (32.2-35.4) g/dL RDW 15.5 (11.5-15.5) % Plt Count 84 L (125-369) X10(3)uL MPV 12.6 H (7.4-10.4) fL Add Manual Diff Yes Neutrophils % (Manual) 75 (46-82) % Band Neutrophils % 8 H (0-6) % Lymphocytes % (Manual) 10 L (13-37) % Monocytes % (Manual) 5 (4-12) % Eosinophils % (Manual) 2 (0-5) % Sodium (135-145) mmol/L Potassium (3.5-5.3) mmol/L Chloride (100-110) mmol/L Carbon Dioxide (21-32) mmol/L BUN (7-18) mg/dL Creatinine (0.70-1.30) mg/dL Est Cr Clr Drug Dosing mL/min Estimated GFR (MDRD) (>60) BUN/Creatinine Ratio (9-20) Glucose (80-116) mg/dL Calcium (8.6-10.2) mg/dL Urine Color (YELLOW) Urine Appearance (CLEAR) Urine pH (5.0-6.5) Ur Specific [place] (1.010-1.025) Urine Protein (NEGATIVE) mg/dL Urine Glucose (UA) (NEGATIVE) mg/dL Urine Ketones (NEGATIVE) mg/dL Urine Occult Blood (NEGATIVE) Urine Nitrite (NEGATIVE) Urine Bilirubin (NEGATIVE) Urine Urobilinogen (NEGATIVE) mg/dL Ur Leukocyte Esterase (NEGATIVE) Urine RBC (0) Urine WBC (0) Ur Squamous Epith Cells (NS,R,O) Urine Bacteria (NS) ASHLEY Results - Last 24 hrs: Microbiology 05/06/18 09:52 Urine Culture - Preliminary Urine, Catheterized Yeast Isolated Med Orders - Current: Current Medications Acetaminophen (Tylenol) 650 mg PO Q4H PRN PRN Reason: pain or headache Last Admin: 05/06/18 20:17 Dose: 650 mg Albuterol/Ipratropium (Duoneb 3.0-0.5 Mg/3 Ml) 3 ml INH 5XDAY PRN PRN Reason: Dyspnea Apixaban (Eliquis) 5 mg PO BIDMEALS [facility] Aspirin (Aspirin) 81 mg PO DAILY [facility] Diltiazem HCl (Dilacor Xr) 240 mg PO DAILY [facility] Furosemide (Lasix) 40 mg PO BIDDIURETIC [facility] Hydroxyzine HCl (Atarax) 25 mg PO BEDTIME PRN PRN Reason: Insomnia Last Admin: 05/07/18 04:19 Dose: 25 mg Dextrose/Lactated Ringer's (Dextrose 5%-Lactated Ringers) 1,000 mls @ 125 mls/ hr IV ASDIRECTED [facility] Last Admin: 05/07/18 04:40 Dose: 125 mls/hr Levofloxacin/Dextrose 500 mg/ (Premix) 100 mls @ 100 mls/hr IV Q24H [facility] Last Admin: 05/06/18 12:59 Dose: 100 mls/hr Nicotine (Habitrol) 21 mg TRDERM DAILY@1300 [facility] Last Admin: 05/06/18 13:30 Dose: 21 mg Symbicort 80-4.5 Mcg Inhaler Own Med* * 0 puff IH BID [facility] Last Admin: 05/06/18 21:24 Dose: 2 puff Sodium Chloride (Saline Flush) 10 ml FLUSH ASDIRECTED PRN PRN Reason: Keep Vein Open Last Admin: 05/06/18 11:05 Dose: 10 ml Discontinued Medications Eliquis ([facility]ixaban) 5 (Mg Tab Own Med) [facility]
[2018-05-07] MEDS ORDERED: DILTIAZEM 240 MG PO SCH (09:00)
[2018-05-07] MEDS ORDERED: Aspirin 81 MG Tab.Chew *PTOM PO SCH (09:00)
[2018-05-07] MEDS: Acetaminophen 325 MG Tab PO PRN (09:18)
[2018-05-07] MEDS: SYMBICORT IH SCH (09:22)
[2018-05-07] MEDS: Levofloxacin/Dextrose 5%-Water 500 MG in Premix Bag 1 BAG IV SCH (11:54)
== END 2018-05-07 11:00 | disposition home health service (06) ==
LOC: FB.ED 09:03 → FB.MS 10:58
PROVIDERS: ADMIT Family Medicine; ATTEND Family Medicine
DX: N12 Tubulo-interstitial nephritis, not specified as acute or chronic (principal); R33.9 Retention of urine, unspecified; J44.9 Chronic obstructive pulmonary disease, unspecified; I48.91 Unspecified atrial fibrillation; I10 Essential (primary) hypertension; I25.10 Atherosclerotic heart disease of native coronary artery without angina pectoris; K76.6 Portal hypertension; M19.90 Unspecified osteoarthritis, unspecified site; M81.0 Age-related osteoporosis without current pathological fracture; Z79.82 Long term (current) use of aspirin; Z79.899 Other long term (current) drug therapy; Z87.891 Personal history of nicotine dependence
CPT/HCPCS: 36415; 51702; 51798; 71045; 80048; 81001; 85025; 87040; 87086; 93005; 96361; 96365; 99285; A9270; G0378; J1956; J7042; J7050; 99217; 99219; 99284

== ENCOUNTER 2019-05-17 11:30 | Emergency (ER) | payer MEDICARE, MEDICAID ==
[2019-05-17] MEDS ORDERED: Lidocaine 2% Jelly 30 ML Tube MUCMEM ONE (12:17)
[2019-05-17] MEDS ORDERED: Lidocaine 2% HCl 6 ML JEL.PF.APP ONE (12:18)
--- NOTE | 2019-05-17 12:33 | EDM.PDOC ---
ED HPI GENERAL MEDICAL PROBLEM - General Chief Complaint: Abdominal Pain Stated Complaint: ABD PAIN Time Seen by Provider: 05/17/19 11:50 Source of Information: Reports: Patient History Limitations: Reports: No Limitations - History of Present Illness INITIAL COMMENTS - FREE TEXT/NARRATIVE: 73-year-old male with onset of right lower quadrant and right flank pain and suprapubic discomfort last p.m. He reports the pain has worsened today and he noted that his Rodríguez catheter (which has been indwelling for about the past year --he tells me that he does not know if the catheter has been changed over that year) has not been draining well. He feels the urge to urinate. The pain is rated by him as a 6/10. He reports that it feels like a pressure pain like a balloon is blowing up in his right abdomen. The pain does not radiate. He has had no fevers or chills. Mild nausea but no vomiting. Normal bowel movement yesterday. He has been eating and drinking normally. No chest pain. No shortness of breath. There are no other associated signs or symptoms. There are no other modifying factors. Onset: Other (Last night) Duration: Getting Worse Location: Reports: Abdomen, Other (Rodríguez catheter not functioning appropriately) Quality: Reports: Pressure Severity: Moderate Improves with: Reports: None Worsens with: Reports: Other (Palpation) Context: Reports: Other (As above) Associated Symptoms: Reports: Nausea/Vomiting (Mild nausea. 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) RLQ Pain Score (Numeric/FACES): 6 - Related Data Allergies Allergy/AdvReac Type Severity Reaction Status Date / Time ciprofloxacin Allergy Rash Verified 05/17/19 11:58 Home Meds: Home Meds Ascorbate Calcium [Vitamin C] 500 mg PO BIDMEALS 03/25/18 [History] Diltiazem [Dilacor XR] 240 mg PO DAILY #30 cap.er 04/25/18 [Rx] Furosemide [Lasix] 40 mg PO BIDDIURETIC #60 tablet 04/25/18 [Rx] Albuterol/Ipratropium [DuoNeb 3.0-0.5 MG/3 ML] 3 ml IH 5XDAY PRN 05/06/18 [ History] Apixaban [Eliquis] 5 mg PO BIDMEALS 05/06/18 [History] Aspirin 81 mg PO DAILY 05/06/18 [History] Budesonide/Formoterol Fumarate [Symbicort 80-4.5 Mcg Inhaler] 2 puff IH BID 10/13 [History] Tamsulosin HCl [Flomax] 0.4 mg PO DAILY #30 cap.er.24h 05/07/18 [Rx] traMADol [Ultram] 50 mg PO Q4H PRN #30 tab 05/07/18 [Rx] Finasteride [Proscar] 5 mg PO DAILY 10/21/18 [History] Sulfamethoxazole/Trimethoprim [Bactrim Ds Tablet] 1 each PO BID 10 Days #20 tablet 05/17/19 [Rx] Past Medical History Cardiovascular History: Reports: Afib, Heart Failure, Hypertension, Pulmonary Hypertension, PVD Other Cardiovascular History: heartrate rapid admit to ER today 147 Respiratory History: Reports: COPD, Pneumonia, Recurrent Other Respiratory History: PULMONARY HYPERTENSION Gastrointestinal History: Reports: GI Bleed Genitourinary History: Reports: Prostate Disorder, Pyelonephritis, Retention, Urinary, Other (See Below) (Chronic indwelling Rodríguez) Other Genitourinary History: BLADDER DIVERTICULUM, UTI Musculoskeletal History: Reports: Arthritis, Back Pain, Chronic, Osteoporosis Other Musculoskeletal History: INTRASPINAL ABCESS Endocrine/Metabolic History: Reports: Osteoporosis Dermatologic History: Reports: Venous Stasis Dermatitis (Of both lower extremities) - Infectious Disease History Infectious Disease History: Reports: Chicken Pox, Measles - Past Surgical History HEENT Surgical History: Reports: Oral Surgery GI Surgical History: Reports: Colonoscopy, Other (See Below) Other GI Surgeries/Procedures: Hx splenectomy at age 11. Neurological Surgical History: Reports: Other (See Below) Other Neurological Surgeries/Procedures: see above, had back surgery Musculoskeletal Surgical History: Reports: Shoulder Surgery, Other (See Below) Other Musculoskeletal Surgeries/Procedures:: States he had surgery for osteomyelitis in back, has plates and screws, ribs removed. Social & Family History - Tobacco Use Smoking Status *Q: Current Every Day Smoker Years of Tobacco use: 30 Packs/Tins Daily: 1 - Caffeine Use Caffeine Use: Reports: Coffee Other Caffeine Use: 10 cups a day of coffee. Caffeine Use Comment: 10 cups of coffee a day. - Alcohol Use Alcohol Use History: Yes Alcohol Use Frequency: Rarely - Recreational Drug Use Recreational Drug Use: No ED ROS GENERAL - Review of Systems Review Of Systems: See Below Constitutional: Reports: No Symptoms HEENT: Reports: No Symptoms Respiratory: Reports: Cough (Smoker's cough) Cardiovascular: Reports: No Symptoms GI/Abdominal: Reports: Nausea. Denies: Vomiting : Reports: Urinary Retention, Other (Indwelling Rodríguez that is not draining appropriately.) Musculoskeletal: Reports: Back Pain (Chronic and unchanged), Other (Swelling in both legs which is chronic.) Skin: Reports: No Symptoms Neurological: Reports: No Symptoms Hematologic/Lymphatic: Reports: No Symptoms Immunologic: Reports: No Symptoms ED EXAM, RENAL/ - Physical Exam Exam: See Below Exam Limited By: No Limitations General Appearance: Alert, WD/WN, Mild Distress Eye Exam: Bilateral Eye: EOMI, Normal Inspection, PERRL Ears: Normal External Exam Nose: Normal Inspection, Normal Mucosa Throat/Mouth: Normal Inspection, Normal Oropharynx, Normal Voice, No Airway Compromise Head: Atraumatic, Normocephalic Neck: Normal Inspection, Supple, Non-Tender, Full Range of Motion Respiratory/Chest: No Respiratory Distress, Normal Breath Sounds, No Accessory Muscle Use, Chest Non-Tender, Rhonchi (Scattered bilaterally that clear with cough) Cardiovascular: Normal Peripheral Pulses, Regular Rate, Rhythm, No JVD GI/Abdominal: Normal Bowel Sounds, Soft, Tender (Tender in right lower and mid quadrant) (Male) Exam: Suprapubic Fullness, Other (Indwelling Rodríguez) Extremities: Normal Capillary Refill, Other (Lower leg swelling with chronic venous stasis changes) Neurological: Alert, Oriented, CN II-XII Intact, Normal Cognition, No Motor/ Sensory Deficits Psychiatric: Normal Affect Skin Exam: Warm, Dry, Intact Lymphatic: No Adenopathy Course - Vital Signs Last Recorded V/S: Last Vital Signs Temp 36.7 C 05/17/19 11:30 Pulse 101 H 05/17/19 11:30 Resp 20 05/17/19 11:30 BP 112/75 05/17/19 11:30 Pulse Ox 97 05/17/19 11:30 - Orders/Labs/Meds Orders: Active Orders 24 hr Category Date Time Status Rodríguez Catheter Insertion [Insert Urinary Catheter] [OM. Care 05/17/19 12:15 Ordered PC] ONETIME Abdomen Pelvis wo Cont [CT] Stat Exams 05/17/19 12:45 Taken Labs: Laboratory Tests 05/17/19 05/17/19 05/17/19 Range/Units 12:30 12:32 12:32 WBC 12.4 H (4.5-12.0) X10-3/uL RBC 4.89 (4.30-5.75) x10(6)uL Hgb 14.9 (13.5-17.8) g/dL Hct 44.5 (30.0-51.3) % MCV 91.0 (80-96) fL MCH 30.5 (27.7-33.6) pg MCHC 33.5 (32.2-35.4) g/dL RDW 16.6 H (11.5-15.5) % Plt Count 220 (125-369) X10(3)uL MPV 13.0 H (7.4-10.4) fL Neut % (Auto) 76.6 (46-82) % Lymph % (Auto) 16.8 (13-37) % [place] % (Auto) 4.9 (4-12) % Eos % (Auto) 1 (1.0-5.0) % Baso % (Auto) 1 (0-2) % Neut # (Auto) 9.5 H (1.6-8.3) # Lymph # (Auto) 2.1 (0.6-5.0) # [place] # (Auto) 0.6 (0.0-1.3) # Eos # (Auto) 0.1 (0.0-0.8) # Baso # (Auto) 0.1 (0.0-0.2) # Sodium 142 (135-145) mmol/L Potassium 3.8 (3.5-5.3) mmol/L Chloride 101 (100-110) mmol/L Carbon Dioxide 34 H (21-32) mmol/L BUN 20 H D (7-18) mg/dL Creatinine 0.9 (0.70-1.30) mg/dL Est Cr Clr Drug Dosing 62.12 mL/min Estimated GFR (MDRD) > 60 (>60) BUN/Creatinine Ratio 22.2 H (9-20) Glucose 100 (80-116) mg/dL Calcium 9.2 (8.6-10.2) mg/dL Urine Color Yellow (YELLOW) Urine Appearance Cloudy (CLEAR) Urine pH 6.5 (5.0-6.5) Ur Specific [place] 1.010 (1.010-1.025) Urine Protein Negative (NEGATIVE) mg/dL Urine Glucose (UA) Normal (NORMAL) mg/dL Urine Ketones Negative (NEGATIVE) mg/dL Urine Occult Blood Negative (NEGATIVE) Urine Nitrite Positive H (NEGATIVE) Urine Bilirubin Negative (NEGATIVE) Urine Urobilinogen Normal (NEGATIVE) mg/dL Ur Leukocyte Esterase Large H (NEGATIVE) Urine RBC >100 H (0-5) Urine WBC >100 H (0-5) Ur Squamous Epith Cells Rare (NS,R,O) Urine Bacteria Many H (NS) Meds: Medications Discontinued Medications Generic Name Dose Route Start Last Admin Trade Name Herberth PRN Reason Stop Dose Admin Ceftriaxone Sodium 1 gm 05/17/19 13:59 05/17/19 14:06 Rocephin IM 05/17/19 14:00 1 gm ONETIME ONE Administration Lidocaine HCl 5 ml 05/17/19 12:17 05/17/19 13:14 Xylocaine 2% Jelly MUCMEM 05/17/19 12:18 Not Given ONETIME ONE Lidocaine HCl 5 ml 05/17/19 12:18 05/17/19 12:22 Glydo .XX 05/17/19 12:19 5 ml ONETIME ONE Administration Trimethoprim/Sulfamethoxazole 2 tab 05/17/19 14:10 Septra Ds PO 05/17/19 14:11 ONETIME ONE - Re-Assessments/Exams Free Text/Narrative Re-Assessment/Exam: 05/17/19 12:40: The patient's bladder scan showed greater than 700 mL. The patient's Rodríguez catheter was replaced with a new one and approximately 1100 mL drained out. The patient did feel somewhat improved but he still had right sided abdominal pain. I will also send the patient for CT of his abdomen and pelvis. 05/17/19 14:04: CT scan of the abdomen and pelvis shows no definite acute abnormality. He feels much better after the bladder has drained. I suspect that the patient has a right-sided kidney infection and we'll treat him with Rocephin 1 g IM and discharged patient on Bactrim DS 1 by mouth twice a day 10 days and will have him follow-up with his primary doctor. Departure - Departure Time of Disposition: 14:15 Disposition: Home, Self-Care 01 Condition: Good Clinical Impression: Pyelonephritis of right kidney, Urinary retention Rodríguez catheter problem Qualifiers: Encounter type: initial encounter Qualified Code(s): T83.9XXA - Unspecified complication of genitourinary prosthetic device, implant and graft, initial encounter - Discharge Information Prescriptions: Sulfamethoxazole/Trimethoprim [Bactrim Ds Tablet] 1 each PO BID 10 Days #20 tablet Instructions: Pyelonephritis, Adult, [id number], Indwelling Urinary Catheter Care, Adult, [id number] Referrals: Allyson Alejandro NP [Primary Care Provider] - Forms: ED Department Discharge Additional Instructions: Your Rodríguez catheter was not working. This caused you to have backup of urine in your bladder and against your kidneys. This appears to have caused an infection in your right kidney. You should increase your fluid intake. You may take Tylenol or ibuprofen as needed for pain. Medication as prescribed (Bactrim DS). Take probiotics or eat yogurt daily while you are on the antibiotics. Follow-up with your primary doctor. Back to the emergency department for increasing pain, Rodríguez catheter not draining, fever, vomiting or any other concerning sign or symptom. - My Orders Last 24 Hours: My Active Orders 05/17/19 12:15 Rodríguez Catheter Insertion [Insert Urinary Catheter] [OM.PC] ONETIME 05/17/19 12:45 Abdomen Pelvis wo Cont [CT] Stat - Assessment/Plan Last 24 Hours: My Active Orders 05/17/19 12:15 Rodríguez Catheter Insertion [Insert Urinary Catheter] [OM.PC] ONETIME 05/17/19 12:45 Abdomen Pelvis wo Cont [CT] Stat
[2019-05-17] MEDS ORDERED: cefTRIAXone 1 GM Vial IM ONE (13:59)
[2019-05-17] MEDS ORDERED: Sulfamethoxazole/Trimethoprim 800-160 MG Tab PO ONE (14:10)
[2019-05-17 15:03] VITALS: BP 117/79
== END 2019-05-17 14:34 | disposition home or self-care (01) ==
LOC: FB.ED 11:30
DX: T83.9XXA Unspecified complication of genitourinary prosthetic device, implant and graft, initial encounter (principal); N12 Tubulo-interstitial nephritis, not specified as acute or chronic; R33.9 Retention of urine, unspecified; F17.210 Nicotine dependence, cigarettes, uncomplicated; I11.0 Hypertensive heart disease with heart failure; I50.9 Heart failure, unspecified; J44.9 Chronic obstructive pulmonary disease, unspecified; Z79.82 Long term (current) use of aspirin; Z79.899 Other long term (current) drug therapy; Z88.1 Allergy status to other antibiotic agents
CPT/HCPCS: 36415; 51702; 51703; 51798; 74176; 80048; 81001; 85025; 96372; 99284; 99284-25; A9270-GY; J0696

== ENCOUNTER 2019-06-18 08:43 | Emergency (ER) | payer MEDICARE, MEDICAID ==
--- NOTE | 2019-06-18 09:32 | EDM.PDOC ---
ED HPI GENERAL MEDICAL PROBLEM - General Chief Complaint: General Stated Complaint: L SIDE PAIN Time Seen by Provider: 06/18/19 08:43 Source of Information: Reports: Patient History Limitations: Reports: No Limitations - History of Present Illness INITIAL COMMENTS - FREE TEXT/NARRATIVE: 73 y.o.w.m -smoker-with multiple med issues including COPD. left chest injury in the distant past, came to the ed due to low back pain, which started last night. No trauma. Pt had low back pain in the past and underwent surgery. Pt has a Rodríguez cath in place due to weak bladder muscle. Rodríguez cath changed last about 4 weeks ago. Pt had a hard time to pass stool. No blood in his stool. No N /V, no Dizziness. Pt came to the ED with his own car. He lives by himself. Has no family. Pt has chronic low leg infections. No other acute med issues. BP 116/ 69 Temp 36.7 RR 18 Pulse ox 97% on RA. Pulse 77 Onset Date: 06/17/19 Onset Time: 07:00 Duration: Day(s): Location: Reports: Back Quality: Reports: Burning, Dull Severity: Moderate Improves with: Reports: Rest Worsens with: Reports: Movement Context: Reports: Other Associated Symptoms: Reports: Other (constipation) left flank Pain Score (Numeric/FACES): 6 - Related Data Allergies Allergy/AdvReac Type Severity Reaction Status Date / Time ciprofloxacin Allergy Rash Verified 05/17/19 11:58 Home Meds: Home Meds Ascorbate Calcium [Vitamin C] 500 mg PO BIDMEALS 03/25/18 [History] Diltiazem [Dilacor XR] 240 mg PO DAILY #30 cap.er 04/25/18 [Rx] Furosemide [Lasix] 40 mg PO BIDDIURETIC #60 tablet 04/25/18 [Rx] Albuterol/Ipratropium [DuoNeb 3.0-0.5 MG/3 ML] 3 ml IH 5XDAY PRN 05/06/18 [ History] Apixaban [Eliquis] 5 mg PO BIDMEALS 05/06/18 [History] Aspirin 81 mg PO DAILY 05/06/18 [History] Budesonide/Formoterol Fumarate [Symbicort 80-4.5 Mcg Inhaler] 2 puff IH BID 10/13 [History] Tamsulosin HCl [Flomax] 0.4 mg PO DAILY #30 cap.er.24h 05/07/18 [Rx] traMADol [Ultram] 50 mg PO Q4H PRN #30 tab 05/07/18 [Rx] Finasteride [Proscar] 5 mg PO DAILY 10/21/18 [History] Sulfamethoxazole/Trimethoprim [Bactrim Ds Tablet] 1 each PO BID 10 Days #20 tablet 05/17/19 [Rx] Ibuprofen [Motrin] 600 mg PO Q8H PRN #30 tab 06/18/19 [Rx] Sulfamethoxazole/Trimethoprim [Bactrim Ds Tablet] 1 each PO BID #20 tablet 06/18 [Rx] Past Medical History HEENT History: Reports: Impaired Vision Cardiovascular History: Reports: Afib, Heart Failure, Hypertension, Pulmonary Hypertension, PVD Other Cardiovascular History: heartrate rapid admit to ER today 147 Respiratory History: Reports: COPD, Pneumonia, Recurrent Other Respiratory History: PULMONARY HYPERTENSION Gastrointestinal History: Reports: GI Bleed Other Gastrointestinal History: Hx abdominal surgery not sure why. Hx GI + rectal bleeding, HX PEPTIC Genitourinary History: Reports: Prostate Disorder, Pyelonephritis, Retention, Urinary, Other (See Below) Other Genitourinary History: BLADDER DIVERTICULUM, UTI Musculoskeletal History: Reports: Arthritis, Back Pain, Chronic, Osteoporosis Other Musculoskeletal History: INTRASPINAL ABCESS Neurological History: Reports: None Psychiatric History: Reports: None Endocrine/Metabolic History: Reports: Osteoporosis Other Endocrine/Metabolic History: had in past Hematologic History: Reports: None Immunologic History: Reports: None Oncologic (Cancer) History: Reports: None Dermatologic History: Reports: Venous Stasis Dermatitis Other Dermatologic History: Hx cellulitis of lower legs. - Infectious Disease History Infectious Disease History: Reports: Chicken Pox, Measles - Past Surgical History Head Surgeries/Procedures: Reports: None HEENT Surgical History: Reports: Oral Surgery GI Surgical History: Reports: Colonoscopy, Other (See Below) Other GI Surgeries/Procedures: Hx splenectomy at age 11. Neurological Surgical History: Reports: Other (See Below) Other Neurological Surgeries/Procedures: see above, had back surgery Musculoskeletal Surgical History: Reports: Shoulder Surgery, Other (See Below) Other Musculoskeletal Surgeries/Procedures:: States he had surgery for osteomyelitis in back, has plates and screws, ribs removed. Oncologic Surgical History: Reports: None Social & Family History - Family History Family Medical History: Noncontributory HEENT: Reports: Cataract, Impaired Vision Respiratory: Reports: Asthma Musculoskeletal: Reports: Arthritis Neurological: Reports: None - Caffeine Use Caffeine Use: Reports: Coffee Other Caffeine Use: 10 cups a day of coffee. Caffeine Use Comment: 10 cups of coffee a day. ED ROS GENERAL - Review of Systems Review Of Systems: See Below Constitutional: Reports: No Symptoms HEENT: Reports: No Symptoms Respiratory: Reports: No Symptoms Cardiovascular: Reports: No Symptoms Endocrine: Reports: No Symptoms GI/Abdominal: Reports: Abdominal Pain : Reports: Flank Pain Musculoskeletal: Reports: Back Pain Skin: Reports: No Symptoms Neurological: Reports: No Symptoms Psychiatric: Reports: No Symptoms Hematologic/Lymphatic: Reports: No Symptoms Immunologic: Reports: No Symptoms ED EXAM, GENERAL - Physical Exam Exam: See Below Exam Limited By: No Limitations General Appearance: Alert, WD/WN, Mild Distress, Thin Eye Exam: Bilateral Eye: Normal Inspection Ears: Normal External Exam Ear Exam: Bilateral Ear: Auricle Normal Nose: Normal Inspection Throat/Mouth: Normal Inspection, Normal Lips, Normal Voice, No Airway Compromise Head: Atraumatic, Normocephalic Neck: Normal Inspection, Supple, Non-Tender, Full Range of Motion Respiratory/Chest: No Respiratory Distress, Lungs Clear, Normal Breath Sounds, No Accessory Muscle Use, Chest Non-Tender Cardiovascular: Normal Peripheral Pulses, Regular Rate, Rhythm, No Edema Peripheral Pulses: 1+: Brachial (R) GI/Abdominal: Soft, Non-Tender, No Organomegaly, Abnormal Bowel Sounds ( hyperactive) (Male) Exam: Deferred Rectal (Males) Exam: Deferred Back Exam: Normal Inspection, Full Range of Motion Extremities: Normal Inspection, Normal Range of Motion, Non-Tender, Normal Capillary Refill Neurological: Alert, Oriented, CN II-XII Intact, Normal Cognition, Normal Gait, No Motor/Sensory Deficits Psychiatric: Normal Affect, Normal Mood Skin Exam: Warm, Dry, Intact, Normal Color, No Rash Lymphatic: No Adenopathy Course - Vital Signs Text/Narrative:: 73 y.o.w.m -smoker-with multiple med issues including COPD. left chest injury in the distant past, came to the ed due to low back pain, which started last night. No trauma. Pt had low back pain in the past and underwent surgery. Pt has a Rodríguez cath in place due to weak bladder muscle. Rodríguez cath changed last about 4 weeks ago. Pt had a hard time to pass stool. No blood in his stool. No N /V, no Dizziness. Pt came to the ED with his own car. He lives by himself. Has no family. Pt has chronic low leg infections. No other acute med issues. BP 116/ 69 Temp 36.7 RR 18 Pulse ox 97% on RA. Pulse 77 PE: Thin 73 y.o.w.m with abd. pain and back pain Labs: UA pos for UTI Imaging: abd. NAD as per RAD Impression: Low back pain, UTI Tx: Bactrim, Toradol, ICE, Tetanus Immunization Reexam: Improved Plan: D/C with instructions Last Recorded V/S: Last Vital Signs Temp 36.5 C 06/18/19 11:17 Pulse 68 06/18/19 11:17 Resp 14 06/18/19 11:17 BP 111/67 06/18/19 11:17 Pulse Ox 97 06/18/19 11:17 - Orders/Labs/Meds Orders: Active Orders 24 hr Category Date Time Status Insert Rodríguez Catheter [Insert Urinary Catheter] [OM.PC] Care 06/18/19 09:15 Ordered Q24H Urinary Catheter Assessment [RC] QSHIFT Care 06/18/19 09:14 Active CULTURE URINE [RM] Stat Lab 06/18/19 10:23 Received Labs: Laboratory Tests 06/18/19 06/18/19 06/18/19 Range/Units 09:24 09:24 09:24 WBC 9.9 (4.5-12.0) X10-3/uL RBC 4.92 (4.30-5.75) x10(6)uL Hgb 15.3 (13.5-17.8) g/dL Hct 45.2 (30.0-51.3) % MCV 91.8 (80-96) fL MCH 31.0 (27.7-33.6) pg MCHC 33.8 (32.2-35.4) g/dL RDW 15.2 (11.5-15.5) % Plt Count 155 (125-369) X10(3)uL MPV 13.0 H (7.4-10.4) fL Neut % (Auto) 65.8 (46-82) % Lymph % (Auto) 23.3 (13-37) % [place] % (Auto) 6.4 (4-12) % Eos % (Auto) 3 (1.0-5.0) % Baso % (Auto) 1 (0-2) % Neut # (Auto) 6.6 (1.6-8.3) # Lymph # (Auto) 2.3 (0.6-5.0) # [place] # (Auto) 0.6 (0.0-1.3) # Eos # (Auto) 0.3 (0.0-0.8) # Baso # (Auto) 0.1 (0.0-0.2) # Sodium 141 (135-145) mmol/L Potassium 3.5 (3.5-5.3) mmol/L Chloride 103 (100-110) mmol/L Carbon Dioxide 30 (21-32) mmol/L BUN 23 H (7-18) mg/dL Creatinine 1.0 (0.70-1.30) mg/dL Est Cr Clr Drug Dosing 60.26 mL/min Estimated GFR (MDRD) > 60 (>60) BUN/Creatinine Ratio 23.0 H (9-20) Glucose 106 (80-116) mg/dL Lactic Acid 1.1 (0.4-2.2) mmol/L Calcium 9.3 (8.6-10.2) mg/dL Total Bilirubin 0.6 (0.1-1.3) mg/dL Direct Bilirubin 0.16 (0.10-0.20) mg/dL AST 26 H D (5-25) IU/L ALT 26 (12-36) U/L Alkaline Phosphatase 84 (56-112) IU/L Total Protein 7.7 (6.0-8.0) g/dL Albumin 3.6 (3.2-4.6) g/dL Amylase 63 (25-115) U/L Urine Color (YELLOW) Urine Appearance (CLEAR) Urine pH (5.0-6.5) Ur Specific [place] (1.010-1.025) Urine Protein (NEGATIVE) mg/dL Urine Glucose (UA) (NORMAL) mg/dL Urine Ketones (NEGATIVE) mg/dL Urine Occult Blood (NEGATIVE) Urine Nitrite (NEGATIVE) Urine Bilirubin (NEGATIVE) Urine Urobilinogen (NEGATIVE) mg/dL Ur Leukocyte Esterase (NEGATIVE) Urine RBC (0-5) Urine WBC (0-5) Ur Squamous Epith Cells (NS,R,O) Urine Bacteria (NS) 06/18/19 Range/Units 10:23 WBC (4.5-12.0) X10-3/uL RBC (4.30-5.75) x10(6)uL Hgb (13.5-17.8) g/dL Hct (30.0-51.3) % MCV (80-96) fL MCH (27.7-33.6) pg MCHC (32.2-35.4) g/dL RDW (11.5-15.5) % Plt Count (125-369) X10(3)uL MPV (7.4-10.4) fL Neut % (Auto) (46-82) % Lymph % (Auto) (13-37) % [place] % (Auto) (4-12) % Eos % (Auto) (1.0-5.0) % Baso % (Auto) (0-2) % Neut # (Auto) (1.6-8.3) # Lymph # (Auto) (0.6-5.0) # [place] # (Auto) (0.0-1.3) # Eos # (Auto) (0.0-0.8) # Baso # (Auto) (0.0-0.2) # Sodium (135-145) mmol/L Potassium (3.5-5.3) mmol/L Chloride (100-110) mmol/L Carbon Dioxide (21-32) mmol/L BUN (7-18) mg/dL Creatinine (0.70-1.30) mg/dL Est Cr Clr Drug Dosing mL/min Estimated GFR (MDRD) (>60) BUN/Creatinine Ratio (9-20) Glucose (80-116) mg/dL Lactic Acid (0.4-2.2) mmol/L Calcium (8.6-10.2) mg/dL Total Bilirubin (0.1-1.3) mg/dL Direct Bilirubin (0.10-0.20) mg/dL AST (5-25) IU/L ALT (12-36) U/L Alkaline Phosphatase (56-112) IU/L Total Protein (6.0-8.0) g/dL Albumin (3.2-4.6) g/dL Amylase (25-115) U/L Urine Color Yellow (YELLOW) Urine Appearance Slightly cloudy (CLEAR) Urine pH 6.5 (5.0-6.5) Ur Specific [place] 1.010 (1.010-1.025) Urine Protein Negative (NEGATIVE) mg/dL Urine Glucose (UA) Normal (NORMAL) mg/dL Urine Ketones Negative (NEGATIVE) mg/dL Urine Occult Blood Negative (NEGATIVE) Urine Nitrite Negative (NEGATIVE) Urine Bilirubin Negative (NEGATIVE) Urine Urobilinogen Normal (NEGATIVE) mg/dL Ur Leukocyte Esterase Moderate H (NEGATIVE) Urine RBC 0-5 (0-5) Urine WBC 10-20 H (0-5) Ur Squamous Epith Cells Few H (NS,R,O) Urine Bacteria Few H (NS) Meds: Medications Discontinued Medications Generic Name Dose Route Start Last Admin Trade Name Freq PRN Reason Stop Dose Admin Ketorolac Tromethamine 15 mg 06/18/19 10:25 06/18/19 10:42 Toradol IVPUSH 06/18/19 10:26 Not Given ONETIME ONE Ketorolac Tromethamine 30 mg 06/18/19 10:28 06/18/19 10:34 Toradol IM 06/18/19 10:29 30 mg ONETIME ONE Administration Trimethoprim/Sulfamethoxazole 1 tab 06/18/19 11:00 06/18/19 11:13 Septra Ds PO 06/18/19 11:01 1 tab ONETIME ONE Administration Departure - Departure Time of Disposition: 11:13 Disposition: Home, Self-Care 01 Condition: Good Clinical Impression: Back pain Qualifiers: Back pain location: low back pain Chronicity: unspecified Back pain laterality : midline Sciatica presence: without sciatica Qualified Code(s): M54.5 - Low back pain - Discharge Information Prescriptions: Ibuprofen [Motrin] 600 mg PO Q8H PRN #30 tab PRN Reason: low back pain Sulfamethoxazole/Trimethoprim [Bactrim Ds Tablet] 1 each PO BID #20 tablet Instructions: Urinary Tract Infection, Adult, Sulfamethoxazole; Trimethoprim, SMX-[id number] tablets Referrals: Allyson Alejandro NP [Primary Care Provider] - Forms: ED Department Discharge Additional Instructions: Please apply ice to lower back, please take Bactrim for your UTI, take Motrin for pain, please f/u, come back if your symptoms get worse acutely. - My Orders Last 24 Hours: My Active Orders 06/18/19 09:14 Urinary Catheter Assessment [RC] QSHIFT 06/18/19 09:15 Insert Rodríguez Catheter [Insert Urinary Catheter] [OM.PC] Q24H 06/18/19 10:23 CULTURE URINE [RM] Stat - Assessment/Plan Last 24 Hours: My Active Orders 06/18/19 09:14 Urinary Catheter Assessment [RC] QSHIFT 06/18/19 09:15 Insert Rodríguez Catheter [Insert Urinary Catheter] [OM.PC] Q24H 06/18/19 10:23 CULTURE URINE [RM] Stat
[2019-06-18] MEDS ORDERED: Ketorolac 30 MG/ML SDV IVPUSH ONE (10:25)
[2019-06-18] MEDS ORDERED: Ketorolac 30 MG/ML SDV IM ONE (10:28)
--- NOTE | 2019-06-18 10:34 | CR ---
INDICATION: Abdominal pain. ABDOMEN TWO VIEWS: Five images of the abdomen is supine and upright projections were obtained 06/18/19 and compared with abdomen CT from 08/10/16. The massively distended urinary bladder is no longer distended. The transverse colon is somewhat distended, which is of questionable significance. The transverse colon is somewhat distended comparatively. This is of questionable significance and could be incidental. There is gas and stool in the more distal colon. No evidence of free air was identified. No other organomegaly, definite mass lesions or nonvascular pathological calcifications are noted. Calcifications are noted in the abdominal aorta and iliac as well as femoral arteries. Fusion is noted at the thoracolumbar spine as previously with an intact plate and screws. IMPRESSION: Non acute abdomen--there is some prominence of the transverse colon , diameter of questionable significance. No definite air fluid level is seen in that area. The finding may be incidental. Follow up study may be helpful such as a repeat abdomen x-ray in the upright projection to re-evaluate the transverse colon diameter, depending upon clinical necessity. [facility]
[2019-06-18] MEDS ORDERED: Sulfamethoxazole/Trimethoprim 800-160 MG Tab PO ONE (11:00)
[2019-06-18 11:18] VITALS: BP 111/67; PULSE 68
[2019-06-18] MEDS ORDERED: Diphtheria,Pertussis(Acell),Tetanus Vaccine 0.5 ML SDV IM ONE (13:02)
== END 2019-06-18 11:30 | disposition home or self-care (01) ==
LOC: FB.ED 08:43
DX: N39.0 Urinary tract infection, site not specified (principal); M54.5 Low back pain; J44.9 Chronic obstructive pulmonary disease, unspecified; I48.91 Unspecified atrial fibrillation; I11.0 Hypertensive heart disease with heart failure; I50.9 Heart failure, unspecified; Z88.1 Allergy status to other antibiotic agents; Z79.899 Other long term (current) drug therapy; Z79.82 Long term (current) use of aspirin
CPT/HCPCS: 36415; 51702; 74019; 80048; 80076; 81001; 82150; 83605; 85025; 87086; 87088; 87186; 96372; 99284; A9270; J1885; 99283

== ENCOUNTER 2019-06-19 10:49 | Emergency (ER) | payer MEDICARE, MEDICAID ==
--- NOTE | 2019-06-19 11:02 | EDM.PDOC ---
ED HPI GENERAL MEDICAL PROBLEM - General Stated Complaint: BACK PAIN POSSIBLE KIDNEY Time Seen by Provider: 06/19/19 10:49 Source of Information: Reports: Patient History Limitations: Reports: No Limitations - History of Present Illness INITIAL COMMENTS - FREE TEXT/NARRATIVE: 73 y.o.w.m with H/O COPD, came to the Ed due to left flank pain. Pt was seen yesterday for low back pain, constipation and UTI. Rodríguez cath was changed yesterday UCx results are pending. Pt has chronic back pain. Motrin helps. No trauma. Pt did not take his Abx today. No N/V/D or any other acute med issues. BP 105/59 RR 15 Pulse ox 97 Temp 36.8 Pulse 56 Onset Date: 06/17/19 Onset Time: 09:00 Duration: Day(s):, Intermittent Location: Reports: Back (left flank) Quality: Reports: Burning, Dull Severity: Mild Improves with: Reports: Rest Worsens with: Reports: Movement Context: Reports: Other Associated Symptoms: Reports: No Other Symptoms Treatments HOSPICE CARE CONSULTANT: Reports: Other (see below) (Pt did not take the meds prescriped yesterday) LEFT FLANK Pain Score (Numeric/FACES): 7 - Related Data Allergies Allergy/AdvReac Type Severity Reaction Status Date / Time ciprofloxacin Allergy Rash Verified 06/19/19 10:59 Home Meds: Home Meds Ascorbate Calcium [Vitamin C] 500 mg PO BIDMEALS 03/25/18 [History] Diltiazem [Dilacor XR] 240 mg PO DAILY #30 cap.er 04/25/18 [Rx] Furosemide [Lasix] 40 mg PO BIDDIURETIC #60 tablet 04/25/18 [Rx] Albuterol/Ipratropium [DuoNeb 3.0-0.5 MG/3 ML] 3 ml IH 5XDAY PRN 05/06/18 [ History] Apixaban [Eliquis] 5 mg PO BIDMEALS 05/06/18 [History] Aspirin 81 mg PO DAILY 05/06/18 [History] Budesonide/Formoterol Fumarate [Symbicort 80-4.5 Mcg Inhaler] 2 puff IH BID 10/13 [History] Tamsulosin HCl [Flomax] 0.4 mg PO DAILY #30 cap.er.24h 05/07/18 [Rx] traMADol [Ultram] 50 mg PO Q4H PRN #30 tab 05/07/18 [Rx] Finasteride [Proscar] 5 mg PO DAILY 10/21/18 [History] Sulfamethoxazole/Trimethoprim [Bactrim Ds Tablet] 1 each PO BID 10 Days #20 tablet 05/17/19 [Rx] Ibuprofen [Motrin] 600 mg PO Q8H PRN #30 tab 06/18/19 [Rx] Sulfamethoxazole/Trimethoprim [Bactrim Ds Tablet] 1 each PO BID #20 tablet 06/18 [Rx] Past Medical History HEENT History: Reports: Impaired Vision Cardiovascular History: Reports: Afib, Heart Failure, Hypertension, Pulmonary Hypertension, PVD Other Cardiovascular History: heartrate rapid admit to ER today 147 Respiratory History: Reports: COPD, Pneumonia, Recurrent Other Respiratory History: PULMONARY HYPERTENSION Gastrointestinal History: Reports: GI Bleed Other Gastrointestinal History: Hx abdominal surgery not sure why. Hx GI + rectal bleeding, HX PEPTIC Genitourinary History: Reports: Prostate Disorder, Pyelonephritis, Retention, Urinary, Other (See Below) Other Genitourinary History: BLADDER DIVERTICULUM, UTI Musculoskeletal History: Reports: Arthritis, Back Pain, Chronic, Osteoporosis Other Musculoskeletal History: INTRASPINAL ABCESS Neurological History: Reports: None Psychiatric History: Reports: None Endocrine/Metabolic History: Reports: Osteoporosis Other Endocrine/Metabolic History: had in past Hematologic History: Reports: None Immunologic History: Reports: None Oncologic (Cancer) History: Reports: None Dermatologic History: Reports: Venous Stasis Dermatitis Other Dermatologic History: Hx cellulitis of lower legs. - Infectious Disease History Infectious Disease History: Reports: Chicken Pox, Measles - Past Surgical History Head Surgeries/Procedures: Reports: None HEENT Surgical History: Reports: Oral Surgery GI Surgical History: Reports: Colonoscopy, Other (See Below) Other GI Surgeries/Procedures: Hx splenectomy at age 11. Neurological Surgical History: Reports: Other (See Below) Other Neurological Surgeries/Procedures: see above, had back surgery Musculoskeletal Surgical History: Reports: Shoulder Surgery, Other (See Below) Other Musculoskeletal Surgeries/Procedures:: States he had surgery for osteomyelitis in back, has plates and screws, ribs removed. Oncologic Surgical History: Reports: None Social & Family History - Family History Family Medical History: Noncontributory HEENT: Reports: Cataract, Impaired Vision Respiratory: Reports: Asthma Musculoskeletal: Reports: Arthritis Neurological: Reports: None - Caffeine Use Caffeine Use: Reports: Coffee Other Caffeine Use: 10 cups a day of coffee. Caffeine Use Comment: 10 cups of coffee a day. ED ROS GENERAL - Review of Systems Review Of Systems: See Below Constitutional: Reports: No Symptoms HEENT: Reports: No Symptoms Respiratory: Reports: No Symptoms Cardiovascular: Reports: No Symptoms Endocrine: Reports: No Symptoms GI/Abdominal: Reports: No Symptoms : Reports: No Symptoms Musculoskeletal: Reports: No Symptoms Skin: Reports: No Symptoms Neurological: Reports: No Symptoms Psychiatric: Reports: No Symptoms Hematologic/Lymphatic: Reports: No Symptoms Immunologic: Reports: No Symptoms ED EXAM, GI/ABD - Physical Exam Exam: See Below Exam Limited By: No Limitations General Appearance: Alert, WD/WN, Mild Distress Eyes: Bilateral: Normal Appearance Ears: Normal External Exam Nose: Normal Inspection Throat/Mouth: Normal Inspection, Normal Lips, Normal Voice, No Airway Compromise Head: Atraumatic, Normocephalic Neck: Normal Inspection, Supple, Non-Tender, Full Range of Motion Respiratory/Chest: No Respiratory Distress, Lungs Clear, Normal Breath Sounds, Chest Non-Tender Cardiovascular: Normal Peripheral Pulses, Regular Rate, Rhythm, No Edema, No Murmur GI/Abdominal Exam: Normal Bowel Sounds, Soft, Non-Tender, No Organomegaly, No Mass, Pelvis Stable (Male) Exam: No Hernia Rectal (Males) Exam: Deferred Back Exam: Normal Inspection, Decreased Range of Motion (not new) Extremities: Normal Inspection Neurological: Alert, Oriented, CN II-XII Intact, Normal Cognition, Normal Gait Psychiatric: Normal Affect, Normal Mood Skin Exam: Warm, Dry, Intact, Normal Color, No Rash Lymphatic: No Adenopathy Course - Vital Signs Text/Narrative:: 73 y.o.w.m with H/O COPD, -smoker-came to the Ed due to left flank pain. Pt was seen yesterday for low back pain, constipation and UTI. Rodríguez cath was changed yesterday UCx results are pending. Pt has chronic back pain. Motrin helps. No trauma. Pt did not take his Abx today. No N/V/D or any other acute med issues. BP 105/59 RR 15 Pulse ox 97 Temp 36.8 Pulse 56 Imaging: Urinary bladder wall thickening/bladder infection as per RAD labs: GFR 52 WBC 12.4 H/H nl. UCx is pending Impression: Cystitis, chronic low back pain Tx: Bactrim, Toradol Reexam: improved Plan: D/C with instructions Last Recorded V/S: Last Vital Signs Temp 37.0 C 06/19/19 13:00 Pulse 95 06/19/19 13:00 Resp 20 06/19/19 13:00 BP 105/58 L 06/19/19 13:00 Pulse Ox 100 06/19/19 13:00 - Orders/Labs/Meds Labs: Laboratory Tests 06/19/19 06/19/19 Range/Units 11:45 11:45 WBC 12.4 H (4.5-12.0) X10-3/uL RBC 4.96 (4.30-5.75) x10(6)uL Hgb 15.4 (13.5-17.8) g/dL Hct 45.9 (30.0-51.3) % MCV 92.6 (80-96) fL MCH 31.1 (27.7-33.6) pg MCHC 33.6 (32.2-35.4) g/dL RDW 14.8 (11.5-15.5) % Plt Count 158 (125-369) X10(3)uL MPV 14.2 H (7.4-10.4) fL Neut % (Auto) 81.9 (46-82) % Lymph % (Auto) 10.0 L (13-37) % [place] % (Auto) 3.3 L (4-12) % Eos % (Auto) 3 (1.0-5.0) % Baso % (Auto) 2 (0-2) % Neut # (Auto) 10.2 H (1.6-8.3) # Lymph # (Auto) 1.2 (0.6-5.0) # [place] # (Auto) 0.4 (0.0-1.3) # Eos # (Auto) 0.3 (0.0-0.8) # Baso # (Auto) 0.3 H (0.0-0.2) # Sodium 141 (135-145) mmol/L Potassium 4.0 (3.5-5.3) mmol/L Chloride 103 (100-110) mmol/L Carbon Dioxide 29 (21-32) mmol/L BUN 28 H (7-18) mg/dL Creatinine 1.3 (0.70-1.30) mg/dL Est Cr Clr Drug Dosing 48.02 mL/min Estimated GFR (MDRD) 54 L (>60) BUN/Creatinine Ratio 21.5 H (9-20) Glucose 122 H (80-116) mg/dL Calcium 9.6 (8.6-10.2) mg/dL Meds: Medications Discontinued Medications Generic Name Dose Route Start Last Admin Trade Name Freq PRN Reason Stop Dose Admin Ketorolac Tromethamine 30 mg 06/19/19 12:36 06/19/19 12:52 Toradol IM 06/19/19 12:37 30 mg ONETIME ONE Administration Trimethoprim/Sulfamethoxazole 1 tab 06/19/19 12:39 06/19/19 12:52 Septra Ds PO 06/19/19 12:40 1 tab ONETIME ONE Administration Departure - Departure Time of Disposition: 12:37 Disposition: Home, Self-Care 01 Condition: Good Clinical Impression: Cystitis - Discharge Information Instructions: Urinary Tract Infection, Adult, [id number] Referrals: Alylson Alejandro NP [Primary Care Provider] - Forms: ED Department Discharge Additional Instructions: Please the Abx as recommended, please increase water intake, please f/u with your PMD, come back if your symptoms worsen acutely
[2019-06-19] MEDS ORDERED: Ketorolac 30 MG/ML SDV IM ONE (12:36)
[2019-06-19] MEDS ORDERED: Sulfamethoxazole/Trimethoprim 800-160 MG Tab PO ONE (12:39)
[2019-06-19 13:08] VITALS: BP 105/58; PULSE 95
--- NOTE | 2019-06-19 13:49 | CT ---
INDICATION: Left flank pain. COMPUTERIZED TOMOGRAPHY OF THE ABDOMEN AND PELVIS WITHOUT CONTRAST: Spiral 2.5 mm axial sections were obtained through the abdomen and pelvis without contrast with sagittal and coronal reconstructions 06/19/19 and compared with 05/17/19. Total exam DLP =405.55 mGy-cm. Heavy markings are noted at the lung bases to a mild degree. No definite active infiltrate or effusion. However, minimal patchy pneumonia is difficult to entirely exclude at the right and left lower lobe at the diaphragm especially on the right. The heart is enlarged. No pericardial effusion was seen. Coronary artery calcifications are noted. No gallstones were demonstrated. The liver was unremarkable. 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 The pancreas is somewhat fatty replaced. A stable cyst is noted off the posterior mid-pole cortex of the left kidney. No obstructive uropathy or renal calculi could be identified. A definite solid mass was not seen. There is suspicion of one tiny area of calcification in the lower pole of the left kidney, which was present previously. Calcifications are again noted in the abdominal aorta, iliac and femoral arteries. The appendix appeared normal visualized on axial images 121 through 128. No evidence of free air or bowel obstruction was seen. A moderately large amount of stool was noted in the rectum, however, no obstructive process of the bowel is suggested. No retroperitoneal mass was seen. A Rodríguez catheter was noted in the urinary bladder and in comparison with the previous examination there is rather massive thickening of the wall of the urinary bladder suggesting severe cystitis. Other etiologies such as neoplasia is felt to be less likely. This is especially true since the previous study was just over a month prior. Again noted is fusion of the thoracolumbar spine with compression fractures as noted previously. IMPRESSION: 1. Massive thickening of the wall of the urinary bladder is suggested compatible with severe cystitis and should be correlated clinically. 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 2. 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 3. Post-surgical changes--fusion appears stable throughout the lumbar area with stable compressions. 4. Stable cyst suggested left kidney, no obstructive uropathy but there is one tiny calcification at the lower pole of the left kidney. 5. Heavy markings at the lung bases making it difficult to exclude minimal patchy bronchopneumonia but more likely representing fibrosis. Report was called to Dr. Salgado at 1154 hours. [facility]
== END 2019-06-19 13:00 | disposition home or self-care (01) ==
LOC: FB.ED 10:49
DX: N30.90 Cystitis, unspecified without hematuria (principal); G89.29 Other chronic pain; M54.5 Low back pain; I48.91 Unspecified atrial fibrillation; I11.0 Hypertensive heart disease with heart failure; I50.9 Heart failure, unspecified; J44.9 Chronic obstructive pulmonary disease, unspecified; Z88.1 Allergy status to other antibiotic agents; Z79.899 Other long term (current) drug therapy; Z79.82 Long term (current) use of aspirin; Z79.01 Long term (current) use of anticoagulants
CPT/HCPCS: 36415; 74176; 80048; 85025; 96372; 99284; A9270; J1885

== ENCOUNTER 2019-06-19 22:38 | Emergency (ER) | payer MEDICARE, MEDICAID ==
[~2019-06-19 22:38] MED LIST: Sodium Chloride 0.9% 500 ML IV ONE
[2019-06-19] MEDS ORDERED: traMADol 50 MG Tab PO ONE (22:39)
[2019-06-19 22:50] VITALS: BP 128/90; PULSE 108
[2019-06-19] MEDS ORDERED: cefTRIAXone 2 GM Vial IVPUSH ONE (22:52)
[2019-06-19] MEDS ORDERED: Morphine 4 MG/ML Syringe IVPUSH ONE (22:52)
[2019-06-19] MEDS ORDERED: Ondansetron 4 MG/2 ML SDV IVPUSH ONE (22:52)
--- NOTE | 2019-06-19 22:56 | EDM.PDOC ---
ED HPI GENERAL MEDICAL PROBLEM - General Chief Complaint: Flank Pain Stated Complaint: LT SIDE PAIN Time Seen by Provider: 06/19/19 22:53 Source of Information: Reports: Patient History Limitations: Reports: No Limitations - History of Present Illness INITIAL COMMENTS - FREE TEXT/NARRATIVE: Left flank pain x 1 week. Moderate to severe. Radiates to the back. Was here this morning.,CT revealed cystis,given Septra,but it is not helping.has an indwelling Cath - Related Data Allergies Allergy/AdvReac Type Severity Reaction Status Date / Time ciprofloxacin Allergy Rash Verified 06/19/19 23:07 Home Meds: Home Meds Ascorbate Calcium [Vitamin C] 500 mg PO BIDMEALS 03/25/18 [History] Diltiazem [Dilacor XR] 240 mg PO DAILY #30 cap.er 04/25/18 [Rx] Furosemide [Lasix] 40 mg PO BIDDIURETIC #60 tablet 04/25/18 [Rx] Albuterol/Ipratropium [DuoNeb 3.0-0.5 MG/3 ML] 3 ml IH 5XDAY PRN 05/06/18 [ History] Apixaban [Eliquis] 5 mg PO BIDMEALS 05/06/18 [History] Aspirin 81 mg PO DAILY 05/06/18 [History] Budesonide/Formoterol Fumarate [Symbicort 80-4.5 Mcg Inhaler] 2 puff IH BID 10/13 [History] Tamsulosin HCl [Flomax] 0.4 mg PO DAILY #30 cap.er.24h 05/07/18 [Rx] traMADol [Ultram] 50 mg PO Q4H PRN #30 tab 05/07/18 [Rx] Finasteride [Proscar] 5 mg PO DAILY 10/21/18 [History] Sulfamethoxazole/Trimethoprim [Bactrim Ds Tablet] 1 each PO BID 10 Days #20 tablet 05/17/19 [Rx] Ibuprofen [Motrin] 600 mg PO Q8H PRN #30 tab 06/18/19 [Rx] Sulfamethoxazole/Trimethoprim [Bactrim Ds Tablet] 1 each PO BID #20 tablet 06/18 [Rx] Past Medical History HEENT History: Reports: Impaired Vision Cardiovascular History: Reports: Afib, Heart Failure, Hypertension, Pulmonary Hypertension, PVD Other Cardiovascular History: heartrate rapid admit to ER today 147 Respiratory History: Reports: COPD, Pneumonia, Recurrent Other Respiratory History: PULMONARY HYPERTENSION Gastrointestinal History: Reports: GI Bleed Other Gastrointestinal History: Hx abdominal surgery not sure why. Hx GI + rectal bleeding, HX PEPTIC Genitourinary History: Reports: Prostate Disorder, Pyelonephritis, Retention, Urinary, Other (See Below) Other Genitourinary History: BLADDER DIVERTICULUM, UTI Musculoskeletal History: Reports: Arthritis, Back Pain, Chronic, Osteoporosis Other Musculoskeletal History: INTRASPINAL ABCESS Neurological History: Reports: None Psychiatric History: Reports: None Endocrine/Metabolic History: Reports: Osteoporosis Other Endocrine/Metabolic History: had in past Hematologic History: Reports: None Immunologic History: Reports: None Oncologic (Cancer) History: Reports: None Dermatologic History: Reports: Venous Stasis Dermatitis Other Dermatologic History: Hx cellulitis of lower legs. - Infectious Disease History Infectious Disease History: Reports: Chicken Pox, Measles - Past Surgical History Head Surgeries/Procedures: Reports: None HEENT Surgical History: Reports: Oral Surgery GI Surgical History: Reports: Colonoscopy, Other (See Below) Other GI Surgeries/Procedures: Hx splenectomy at age 11. Neurological Surgical History: Reports: Other (See Below) Other Neurological Surgeries/Procedures: see above, had back surgery Musculoskeletal Surgical History: Reports: Shoulder Surgery, Other (See Below) Other Musculoskeletal Surgeries/Procedures:: States he had surgery for osteomyelitis in back, has plates and screws, ribs removed. Oncologic Surgical History: Reports: None Social & Family History - Family History Family Medical History: Noncontributory HEENT: Reports: Cataract, Impaired Vision Respiratory: Reports: Asthma Musculoskeletal: Reports: Arthritis Neurological: Reports: None - Caffeine Use Caffeine Use: Reports: Coffee Other Caffeine Use: 10 cups a day of coffee. Caffeine Use Comment: 10 cups of coffee a day. ED ROS GENERAL - Review of Systems Review Of Systems: ROS reveals no pertinent complaints other than HPI. ED EXAM, GI/ABD - Physical Exam Exam: See Below Exam Limited By: No Limitations General Appearance: Alert, WD/WN Ears: Normal External Exam Respiratory/Chest: No Respiratory Distress Cardiovascular: Normal Peripheral Pulses GI/Abdominal Exam: Normal Bowel Sounds, Soft, Distended, Tender (Left flank). No: Non-Tender (Male) Exam: Deferred Neurological: Alert, Oriented Psychiatric: Normal Affect Skin Exam: Warm Course - Vital Signs Last Recorded V/S: Last Vital Signs Temp 97.8 F 06/19/19 22:40 Pulse 108 H 06/19/19 22:40 Resp 18 06/19/19 22:40 BP 128/90 06/19/19 22:40 Pulse Ox 99 06/19/19 22:40 - Orders/Labs/Meds Orders: Active Orders 24 hr Category Date Time Status UA W/MICROSCOPIC [URIN] Stat Lab 06/19/19 22:51 Ordered Labs: Laboratory Tests 06/19/19 06/19/19 Range/Units 23:10 23:10 WBC 11.6 (4.5-12.0) X10-3/uL RBC 4.96 (4.30-5.75) x10(6)uL Hgb 15.3 (13.5-17.8) g/dL Hct 45.9 (30.0-51.3) % MCV 92.6 (80-96) fL MCH 30.9 (27.7-33.6) pg MCHC 33.4 (32.2-35.4) g/dL RDW 14.9 (11.5-15.5) % Plt Count 147 (125-369) X10(3)uL MPV 14.0 H (7.4-10.4) fL Neut % (Auto) 71.9 (46-82) % Lymph % (Auto) 13.4 (13-37) % [place] % (Auto) 6.7 (4-12) % Eos % (Auto) 4 (1.0-5.0) % Baso % (Auto) 4 H (0-2) % Neut # (Auto) 8.3 (1.6-8.3) # Lymph # (Auto) 1.6 (0.6-5.0) # [place] # (Auto) 0.8 (0.0-1.3) # Eos # (Auto) 0.5 (0.0-0.8) # Baso # (Auto) 0.4 H (0.0-0.2) # Sodium 140 (135-145) mmol/L Potassium 3.8 (3.5-5.3) mmol/L Chloride 101 (100-110) mmol/L Carbon Dioxide 28 (21-32) mmol/L BUN 30 H (7-18) mg/dL Creatinine 1.4 H (0.70-1.30) mg/dL Est Cr Clr Drug Dosing TNP Estimated GFR (MDRD) 50 L (>60) BUN/Creatinine Ratio 21.4 H (9-20) Glucose 131 H (80-116) mg/dL Calcium 9.5 (8.6-10.2) mg/dL Total Bilirubin 0.5 (0.1-1.3) mg/dL AST 24 (5-25) IU/L ALT 21 D (12-36) U/L Alkaline Phosphatase 74 (56-112) IU/L Total Protein 7.3 (6.0-8.0) g/dL Albumin 3.4 (3.2-4.6) g/dL Globulin 3.9 g/dL Albumin/Globulin Ratio 0.9 Meds: Medications Discontinued Medications Generic Name Dose Route Start Last Admin Trade Name Freq PRN Reason Stop Dose Admin Ceftriaxone Sodium 2 gm 06/19/19 22:52 06/19/19 23:18 Rocephin IVPUSH 06/19/19 22:53 2 gm ONETIME ONE Administration Morphine Sulfate 4 mg 06/19/19 22:52 06/19/19 23:17 Morphine IVPUSH 06/19/19 22:53 4 mg ONETIME ONE Administration Ondansetron HCl 4 mg 06/19/19 22:52 06/19/19 23:18 Zofran IVPUSH 06/19/19 22:53 4 mg ONETIME ONE Administration Departure - Departure Time of Disposition: 23:45 Disposition: Home, Self-Care 01 Condition: Good Clinical Impression: UTI, Urinary tract infectious disease, Pyelonephritis - Discharge Information Referrals: Allyson Alejandro NP [Primary Care Provider] - Forms: ED Department Discharge Care Plan Goals: I gave him 2 g of Rocephin,IV Morphine and Zofran,H e improved. I reviewed his most recent Ct of 06/19(today),compared with 05/17. Findings consisted with acute pyelonephritis. Will discharge him home with outpatient Rocephin x 3days. Tramadol 50 mg po tid prn. - Problem List Review Problem List Initiated/Reviewed/Updated: Yes - My Orders Last 24 Hours: My Active Orders 06/19/19 22:51 UA W/MICROSCOPIC [URIN] Stat - Assessment/Plan Last 24 Hours: My Active Orders 06/19/19 22:51 UA W/MICROSCOPIC [URIN] Stat
== END 2019-06-20 00:30 | disposition home or self-care (01) ==
LOC: FB.ED 22:38
DX: N12 Tubulo-interstitial nephritis, not specified as acute or chronic (principal); I48.91 Unspecified atrial fibrillation; I11.0 Hypertensive heart disease with heart failure; I50.9 Heart failure, unspecified; J44.9 Chronic obstructive pulmonary disease, unspecified; Z88.1 Allergy status to other antibiotic agents; Z79.899 Other long term (current) drug therapy; Z79.82 Long term (current) use of aspirin
CPT/HCPCS: 36415; 74176; 80048; 80053; 81001; 85025; 87086; 96361; 96372; 96374; 96375; 99283; 99284; A9270; J0696; J1885; J2270; J2405; J7040

== ENCOUNTER 2019-06-28 17:00 | Emergency (ER) | payer MEDICARE, MEDICAID ==
[2019-06-28] MEDS ORDERED: Ketorolac 30 MG/ML SDV IM ONE (17:09)
--- NOTE | 2019-06-28 17:34 | EDM.PDOC ---
ED HPI GENERAL MEDICAL PROBLEM - General Stated Complaint: ABD PAIN Time Seen by Provider: 06/28/19 17:00 Source of Information: Reports: Patient History Limitations: Reports: No Limitations - History of Present Illness INITIAL COMMENTS - FREE TEXT/NARRATIVE: 74 y.o.w m with a H/O incontinence, UTI came again to the ed because of left lower back pain. Pt had back surgery in the past and multiple workups for the left flank pain and abd. wall bulging out. Pt take currently Bactrim DS for his bladder infection. Motrin is helping his pain. Monet cath was changed 2 weeks ago. No trauma. No N/V/D no F/C no SOB or any other acute med issues. His UTI is sensitive to Bactrim as per UCx results. BP 127/101 RR 20 Pulse ox 100% on RA Pulse 87 Temp 36.8 Onset Date: 05/30/19 Onset Time: 09:00 Duration: Week(s):, Chronic, Intermittent Location: Reports: Back Quality: Reports: Dull, Same as Previous Episode Severity: Moderate Improves with: Reports: Cold Therapy, Rest Worsens with: Reports: Movement Context: Reports: Other Associated Symptoms: Reports: No Other Symptoms left side flank pain Pain Score (Numeric/FACES): 10 - Related Data Allergies Allergy/AdvReac Type Severity Reaction Status Date / Time ciprofloxacin Allergy Rash Verified 06/19/19 23:07 Home Meds: Home Meds Ascorbate Calcium [Vitamin C] 500 mg PO BIDMEALS 03/25/18 [History] Diltiazem [Dilacor XR] 240 mg PO DAILY #30 cap.er 04/25/18 [Rx] Furosemide [Lasix] 40 mg PO BIDDIURETIC #60 tablet 04/25/18 [Rx] Albuterol/Ipratropium [DuoNeb 3.0-0.5 MG/3 ML] 3 ml IH 5XDAY PRN 05/06/18 [ History] Apixaban [Eliquis] 5 mg PO BIDMEALS 05/06/18 [History] Aspirin 81 mg PO DAILY 05/06/18 [History] Budesonide/Formoterol Fumarate [Symbicort 80-4.5 Mcg Inhaler] 2 puff IH BID 10/13 [History] Tamsulosin HCl [Flomax] 0.4 mg PO DAILY #30 cap.er.24h 05/07/18 [Rx] traMADol [Ultram] 50 mg PO Q4H PRN #30 tab 05/07/18 [Rx] Finasteride [Proscar] 5 mg PO DAILY 10/21/18 [History] Sulfamethoxazole/Trimethoprim [Bactrim Ds Tablet] 1 each PO BID 10 Days #20 tablet 05/17/19 [Rx] Ibuprofen [Motrin] 600 mg PO Q8H PRN #30 tab 06/18/19 [Rx] Sulfamethoxazole/Trimethoprim [Bactrim Ds Tablet] 1 each PO BID #20 tablet 06/18 [Rx] Past Medical History HEENT History: Reports: Impaired Vision Cardiovascular History: Reports: Afib, Heart Failure, Hypertension, Pulmonary Hypertension, PVD Other Cardiovascular History: heartrate rapid admit to ER today 147 Respiratory History: Reports: COPD, Pneumonia, Recurrent Other Respiratory History: PULMONARY HYPERTENSION Gastrointestinal History: Reports: GI Bleed Other Gastrointestinal History: Hx abdominal surgery not sure why. Hx GI + rectal bleeding, HX PEPTIC Genitourinary History: Reports: Prostate Disorder, Pyelonephritis, Retention, Urinary, Other (See Below) Other Genitourinary History: BLADDER DIVERTICULUM, UTI Musculoskeletal History: Reports: Arthritis, Back Pain, Chronic, Osteoporosis Other Musculoskeletal History: INTRASPINAL ABCESS Neurological History: Reports: None Psychiatric History: Reports: None Endocrine/Metabolic History: Reports: Osteoporosis Other Endocrine/Metabolic History: had in past Hematologic History: Reports: None Immunologic History: Reports: None Oncologic (Cancer) History: Reports: None Dermatologic History: Reports: Venous Stasis Dermatitis Other Dermatologic History: Hx cellulitis of lower legs. - Infectious Disease History Infectious Disease History: Reports: Chicken Pox, Measles - Past Surgical History Head Surgeries/Procedures: Reports: None HEENT Surgical History: Reports: Oral Surgery GI Surgical History: Reports: Colonoscopy, Other (See Below) Other GI Surgeries/Procedures: Hx splenectomy at age 11. Neurological Surgical History: Reports: Other (See Below) Other Neurological Surgeries/Procedures: see above, had back surgery Musculoskeletal Surgical History: Reports: Shoulder Surgery, Other (See Below) Other Musculoskeletal Surgeries/Procedures:: States he had surgery for osteomyelitis in back, has plates and screws, ribs removed. Oncologic Surgical History: Reports: None Social & Family History - Family History Family Medical History: Noncontributory HEENT: Reports: Cataract, Impaired Vision Respiratory: Reports: Asthma Musculoskeletal: Reports: Arthritis Neurological: Reports: None - Caffeine Use Caffeine Use: Reports: Coffee Other Caffeine Use: 10 cups a day of coffee. Caffeine Use Comment: 10 cups of coffee a day. ED ROS GENERAL - Review of Systems Review Of Systems: See Below Constitutional: Reports: No Symptoms HEENT: Reports: No Symptoms Respiratory: Reports: No Symptoms Cardiovascular: Reports: No Symptoms Endocrine: Reports: No Symptoms GI/Abdominal: Reports: No Symptoms : Reports: Other (has monet cath in place) Musculoskeletal: Reports: Back Pain Skin: Reports: No Symptoms Neurological: Reports: No Symptoms Psychiatric: Reports: No Symptoms Hematologic/Lymphatic: Reports: No Symptoms Immunologic: Reports: No Symptoms ED EXAM,LOWER BACK PAIN/INJURY - Physical Exam Exam: See Below Exam Limited By: No Limitations General Appearance: Alert, WD/WN, Mild Distress, Thin Eye Exam: Bilateral Eye: Normal Inspection Ears: Normal External Exam Nose: Normal Inspection Throat/Mouth: Normal Lips, Normal Voice, No Airway Compromise Head: Atraumatic, Normocephalic Neck: Normal Inspection, Supple, Non-Tender, Full Range of Motion Respiratory/Chest: No Respiratory Distress, Lungs Clear, Normal Breath Sounds, Chest Non-Tender Cardiovascular: Normal Peripheral Pulses, Regular Rate, Rhythm GI/Abdominal: Normal Bowel Sounds, Soft, Non-Tender, No Mass (Male) Exam: Deferred Rectal (Males) Exam: Deferred Back Exam: Paraspinal Tenderness Extremities: Normal Inspection Neurological: Alert, Normal Mood/Affect, Normal Dorsiflexion, CN II-XII Intact, Normal Gait Psychiatric: Normal Affect, Normal Mood Skin Exam: Warm, Dry, Intact, Normal Color Lymphatic: No Adenopathy Course - Vital Signs Text/Narrative:: 74 y.o.w m with a H/O incontinence, UTI came again to the ed because of left lower back pain. Pt had back surgery in the past and multiple workups for the left flank pain and abd. wall bulging out. Pt take currently Bactrim DS for his bladder infection. Motrin is helping his pain. Monet cath was changed 2 weeks ago. No trauma. No N/V/D no F/C no SOB or any other acute med issues. His UTI is sensitive to Bactrim as per UCx results. BP 127/101 RR 20 Pulse ox 100% on RA Pulse 87 Temp 36.8 PE: Thisn 74 y.o.w.m with chronic intermitted left low back pain Imaging/Labs not indicated Impression: Chronic intermitted low back pain. Tx: Toradol. Reexam: Pain improved 60%, requested to be discharged. Plan: D/C with instructions Last Recorded V/S: Last Vital Signs Temp 36.8 C 06/28/19 18:07 Pulse 50 L 06/28/19 18:07 Resp 18 06/28/19 18:07 BP 129/76 06/28/19 18:07 Pulse Ox 99 06/28/19 18:07 - Orders/Labs/Meds Meds: Medications Discontinued Medications Generic Name Dose Route Start Last Admin Trade Name Kadeemq PRN Reason Stop Dose Admin Ketorolac Tromethamine 15 mg 06/28/19 17:09 06/28/19 17:34 Toradol IM 06/28/19 17:10 15 mg ONETIME ONE Administration Departure - Departure Time of Disposition: 18:17 Disposition: Home, Self-Care 01 Condition: Good Clinical Impression: Low back pain Qualifiers: Chronicity: unspecified Back pain laterality: left Sciatica presence: without sciatica Qualified Code(s): M54.5 - Low back pain - Discharge Information Instructions: Urinary Tract Infection, Adult, [id number] Referrals: John Velez MD [Primary Care Provider] - Forms: ED Department Discharge Additional Instructions: Please take motrin for pain, apply ice to lower back, please f/u come back if your symptoms get worse acutely
[2019-06-28 18:25] VITALS: BP 129/76; PULSE 50
== END 2019-06-28 18:18 | disposition home or self-care (01) ==
LOC: FB.ED 17:00
DX: G89.29 Other chronic pain (principal); M54.5 Low back pain; I48.91 Unspecified atrial fibrillation; I11.0 Hypertensive heart disease with heart failure; I50.9 Heart failure, unspecified; J44.9 Chronic obstructive pulmonary disease, unspecified; Z88.1 Allergy status to other antibiotic agents; Z79.899 Other long term (current) drug therapy; Z79.82 Long term (current) use of aspirin
CPT/HCPCS: 96372; 99283; J1885

== ENCOUNTER 2020-03-24 21:14 | Emergency (ER) | payer MEDICARE, MEDICAID ==
[2020-03-24] MEDS ORDERED: Cephalexin 250 MG Cap PO ONE (21:15)
[2020-03-24] MEDS ORDERED: Ketorolac 10 MG Tab PO ONE (21:15)
[2020-03-24 21:31] VITALS: BP 105/63; PULSE 85
[2020-03-24] MEDS ORDERED: Morphine 10 MG/ML SDV IM ONE (22:07)
[2020-03-24] MEDS ORDERED: hydrOXYzine HCl 50 MG/ML SDV IM ONE (22:07)
--- NOTE | 2020-03-24 22:11 | EDM.PDOC ---
ED HPI GENERAL MEDICAL PROBLEM - General Chief Complaint: Abdominal Pain Stated Complaint: ABDOMINAL PAIN Time Seen by Provider: 03/24/20 22:08 Source of Information: Reports: Patient History Limitations: Reports: No Limitations - History of Present Illness INITIAL COMMENTS - FREE TEXT/NARRATIVE: 74 yo with RLQ abdominal pain x 1-2 days. Radiates to the groin. Associated with constipation,but denies any urinary symptoms.My Lemuel has an extensive h/ o that includes Afib,COPD,Splenectomy,BPH and a suprapubic catheter in situ.He does not endorse any fever,chills or vomiting., He has a chronic productive cough. Right Lower Abdominal Pain Score (Numeric/FACES): 6 - Related Data Allergies Allergy/AdvReac Type Severity Reaction Status Date / Time ciprofloxacin Allergy Rash Verified 07/30/19 13:10 [id number] Reductase AdvReac Other Verified 03/24/20 23:21 Inhibitor Home Meds: Home Meds Diltiazem [Dilacor XR] 240 mg PO DAILY #30 cap.er 04/25/18 [Rx] Furosemide [Lasix] 40 mg PO BIDDIURETIC #60 tablet 04/25/18 [Rx] Albuterol/Ipratropium [DuoNeb 3.0-0.5 MG/3 ML] 3 ml IH 5XDAY PRN 05/06/18 [ History] Apixaban [Eliquis] 5 mg PO BIDMEALS 05/06/18 [History] Budesonide/Formoterol Fumarate [Symbicort 80-4.5 MCG] 2 puff IH BID 05/06/18 [ History] Finasteride [Proscar] 5 mg PO DAILY 10/21/18 [History] Ibuprofen [Motrin] 600 mg PO Q8H PRN #30 tab 06/18/19 [Rx] Ascorbic Acid [Vitamin C] 250 mg PO DAILY 03/24/20 [History] Aspirin 325 mg PO DAILY 03/24/20 [History] Cholecalciferol (Vitamin D3) [Vitamin D3] 400 unit PO DAILY 03/24/20 [History] Omeprazole 20 mg PO BIDMEALS 03/24/20 [History] Sodium Chloride 0.9 % (Flush) [Monoject 0.9% Sodium Chloride] 10 ml FLUSH DAILY 03/24/20 [History] Past Medical History HEENT History: Reports: Impaired Vision Cardiovascular History: Reports: Afib, Heart Failure, Hypertension, Pulmonary Hypertension, PVD Other Cardiovascular History: heartrate rapid admit to ER today 89 Respiratory History: Reports: COPD, Pneumonia, Recurrent Other Respiratory History: PULMONARY HYPERTENSION, PLEURAL EFFUSION Gastrointestinal History: Reports: GI Bleed, PUD Other Gastrointestinal History: Hx abdominal surgery not sure why. Hx GI + rectal bleeding, HX PEPTIC Genitourinary History: Reports: Prostate Disorder, Pyelonephritis, Retention, Urinary, Urinary Incontinence, UTI, Recurrent, Other (See Below) Other Genitourinary History: BLADDER DIVERTICULUM, ENLARGED PROSTATE W/ URINARY OBSTRUCTION, LUTS Musculoskeletal History: Reports: Arthritis, Back Pain, Chronic, Osteoporosis Other Musculoskeletal History: INTRASPINAL ABCESS, RIB FRACTURES Neurological History: Reports: None Psychiatric History: Reports: None Other Psychiatric History: NICOTENE DEPENDENCE Endocrine/Metabolic History: Reports: Osteoporosis Other Endocrine/Metabolic History: had in past Hematologic History: Reports: None Immunologic History: Reports: None Oncologic (Cancer) History: Reports: None Dermatologic History: Reports: Venous Stasis Dermatitis Other Dermatologic History: Hx cellulitis of lower legs. - Infectious Disease History Infectious Disease History: Reports: Chicken Pox, Measles - Past Surgical History Head Surgeries/Procedures: Reports: None HEENT Surgical History: Reports: Oral Surgery Cardiovascular Surgical History: Reports: None Respiratory Surgical History: Reports: None GI Surgical History: Reports: Colonoscopy, Other (See Below) Other GI Surgeries/Procedures: Hx splenectomy at age 11. Male Surgical History: Reports: None Endocrine Surgical History: Reports: None Neurological Surgical History: Reports: Other (See Below) Other Neurological Surgeries/Procedures: see above, had back surgery Musculoskeletal Surgical History: Reports: Shoulder Surgery, Other (See Below) Other Musculoskeletal Surgeries/Procedures:: States he had surgery for osteomyelitis in back, has plates and screws, ribs removed. Oncologic Surgical History: Reports: None Dermatological Surgical History: Reports: None Social & Family History - Family History Family Medical History: Noncontributory HEENT: Reports: Cataract, Impaired Vision Respiratory: Reports: Asthma Musculoskeletal: Reports: Arthritis Neurological: Reports: None - Tobacco Use Smoking Status *Q: Current Every Day Smoker Years of Tobacco use: 25 Packs/Tins Daily: 1 - Caffeine Use Caffeine Use: Reports: Coffee Other Caffeine Use: 10 cups a day of coffee. Caffeine Use Comment: 10 cups of coffee a day. ED ROS GENERAL - Review of Systems Review Of Systems: Comprehensive ROS is negative, except as noted in HPI. ED EXAM, GI/ABD - Physical Exam Exam: See Below Exam Limited By: No Limitations General Appearance: Alert, WD/WN, No Apparent Distress Throat/Mouth: Normal Inspection Respiratory/Chest: Rhonchi, Wheezing Cardiovascular: Normal Peripheral Pulses GI/Abdominal Exam: Distended, Guarding, Tender (RLQ) Extremities: Normal Inspection Course - Vital Signs Last Recorded V/S: Last Vital Signs Temp 97.9 F 03/24/20 21:29 Pulse 85 03/24/20 21:29 Resp 16 03/24/20 21:29 BP 105/63 03/24/20 21:29 Pulse Ox 99 03/24/20 21:29 - Orders/Labs/Meds Orders: Active Orders 24 hr Category Date Time Status Abdomen Pelvis w Cont [CT] Stat Exams 03/24/20 22:07 Taken CULTURE URINE [RM] Stat Lab 03/24/20 21:40 Received Labs: Laboratory Tests 03/24/20 03/24/20 03/24/20 Range/Units 21:40 21:48 21:48 WBC 10.0 (4.5-12.0) X10-3/uL RBC 4.34 (4.30-5.75) x10(6)uL Hgb 14.0 (13.5-17.8) g/dL Hct 42.3 (30.0-51.3) % MCV 97.4 H (80-96) fL MCH 32.2 (27.7-33.6) pg MCHC 33.1 (32.2-35.4) g/dL RDW 13.8 (11.5-15.5) % Plt Count 146 (125-369) X10(3)uL MPV 12.9 H (7.4-10.4) fL Neut % (Auto) 70.7 (46-82) % Lymph % (Auto) 19.9 (13-37) % [place] % (Auto) 4.7 (4-12) % Eos % (Auto) 4 (1.0-5.0) % Baso % (Auto) 1 (0-2) % Neut # (Auto) 6.9 (1.6-8.3) # Lymph # (Auto) 2.0 (0.6-5.0) # [place] # (Auto) 0.5 (0.0-1.3) # Eos # (Auto) 0.4 (0.0-0.8) # Baso # (Auto) 0.1 (0.0-0.2) # Sodium 143 (135-145) mmol/L Potassium 4.1 (3.5-5.3) mmol/L Chloride 105 (100-110) mmol/L Carbon Dioxide 32 (21-32) mmol/L BUN 28 H (7-18) mg/dL Creatinine 1.0 (0.70-1.30) mg/dL Est Cr Clr Drug Dosing 59.09 mL/min Estimated GFR (MDRD) > 60 (>60) BUN/Creatinine Ratio 28.0 H (9-20) Glucose 115 (80-116) mg/dL Calcium 9.1 (8.6-10.2) mg/dL Total Bilirubin 0.3 (0.1-1.3) mg/dL AST 31 H D (5-25) IU/L ALT 29 D (12-36) U/L Alkaline Phosphatase 100 (56-112) IU/L Total Protein 7.8 (6.0-8.0) g/dL Albumin 3.5 (3.2-4.6) g/dL Globulin 4.3 g/dL Albumin/Globulin Ratio 0.8 Urine Color Yellow (YELLOW) Urine Appearance Cloudy (CLEAR) Urine pH 5.0 (5.0-6.5) Ur Specific [place] 1.015 (1.010-1.025) Urine Protein 30 H (NEGATIVE) mg/dL Urine Glucose (UA) Normal (NORMAL) mg/dL Urine Ketones Negative (NEGATIVE) mg/dL Urine Occult Blood Large H (NEGATIVE) Urine Nitrite Positive H (NEGATIVE) Urine Bilirubin Negative (NEGATIVE) Urine Urobilinogen Normal (NEGATIVE) mg/dL Ur Leukocyte Esterase Large H (NEGATIVE) Urine RBC >100 H (0-5) Urine WBC >100 H (0-5) Ur Squamous Epith Cells Few H (NS,R,O) Urine Bacteria Many H (NS) Meds: Medications Discontinued Medications Generic Name Dose Route Start Last Admin Trade Name Freq PRN Reason Stop Dose Admin Hydroxyzine HCl 50 mg 03/24/20 22:07 03/24/20 22:21 Vistaril IM 03/24/20 22:08 50 mg ONETIME ONE Administration Iopamidol 100 ml 03/24/20 23:01 03/24/20 23:19 Isovue-370 (76%) IV 03/24/20 23:02 82 ml ONETIME ONE Administration Morphine Sulfate 10 mg 03/24/20 22:07 03/24/20 22:22 Morphine IM 03/24/20 22:08 10 mg ONETIME ONE Administration Departure - Departure Time of Disposition: 00:02 Disposition: Home, Self-Care 01 Condition: Good Clinical Impression: UTI, Urinary tract infectious disease - Discharge Information Instructions: Urinary Tract Infection, Adult Referrals: Allyson Alejandro TUBE FITTER [Primary Care Provider] - Forms: ED Department Discharge Sepsis Event Note - Evaluation Sepsis Screening Result: No Definite Risk - Focused Exam Vital Signs: Vital Signs Temp Pulse Resp BP Pulse Ox 03/24/20 21:29 97.9 F 85 16 105/63 99 Date Exam was Performed: 03/25/20 Time Exam was Performed: 00:02 - Problem List & Annotations (1) Pyelonephritis SNOMED Code(s): 79362142 Code(s): N12 - TUBULO-INTERSTITIAL NEPHRITIS, NOT SPCF ACUTE OR CHRONIC Status: Acute Current Visit: No - Problem List Review Problem List Initiated/Reviewed/Updated: Yes - My Orders Last 24 Hours: My Active Orders 03/24/20 21:40 CULTURE URINE [RM] Stat 03/24/20 22:07 Abdomen Pelvis w Cont [CT] Stat - Assessment/Plan Last 24 Hours: My Active Orders 03/24/20 21:40 CULTURE URINE [RM] Stat 03/24/20 22:07 Abdomen Pelvis w Cont [CT] Stat Plan: CT was suggestive of cystitis. Blood in urine. Start Cephalexin and Toradol at home. He improved on Morphine and Zofran here.
[2020-03-24] MEDS ORDERED: Iopamidol 755 Mg/ML 100 ML Bottle IV ONE (23:01)
== END 2020-03-25 00:23 | disposition home or self-care (01) ==
LOC: FB.ED 21:14
DX: N12 Tubulo-interstitial nephritis, not specified as acute or chronic (principal); I11.0 Hypertensive heart disease with heart failure; I50.9 Heart failure, unspecified; I48.91 Unspecified atrial fibrillation; J44.9 Chronic obstructive pulmonary disease, unspecified; M19.90 Unspecified osteoarthritis, unspecified site; F17.210 Nicotine dependence, cigarettes, uncomplicated; Z88.1 Allergy status to other antibiotic agents; Z79.82 Long term (current) use of aspirin; Z79.01 Long term (current) use of anticoagulants; Z79.899 Other long term (current) drug therapy
CPT/HCPCS: 36415; 74177; 80053; 81001; 85025; 87086; 87088; 87186; 96372; 99284-25; A9270-GY; J2270; J3410; Q9967

== ENCOUNTER 2020-09-15 15:37 | Emergency (ER) | payer MEDICARE, MEDICAID ==
[2020-09-15] MEDS ORDERED: Albuterol/Ipratropium 3.0-0.5 MG/3 ML Neb Soln NEB ONE (16:32)
[2020-09-15] MEDS ORDERED: traMADol 50 MG Tab PO ONE (16:36)
--- NOTE | 2020-09-15 16:43 | EDM.PDOC ---
ED HPI GENERAL MEDICAL PROBLEM - General Chief Complaint: Headache Stated Complaint: Dizziness, Loss of Balance Time Seen by Provider: 09/15/20 16:25 Source of Information: Reports: Patient, Old Records History Limitations: Reports: No Limitations - History of Present Illness INITIAL COMMENTS - FREE TEXT/NARRATIVE: Lemuel comes into [facility] ED by EMS with sxs of dizziness ie loss of balance, backpain from a fall yesterday, and facial pain ovelrying the R face from suspected sinusitis over the past week. He fell on 1 step attempting to enter his apartment, no LOC, some residual mid thoracic pain with movement. He has chronic SOB and cough with COPD, medicating with Albuterol Nebs, denies fever, chills or sweats. Balance issues seem recent with fall, but denies falling in h is home. He endorses some nasal congestion, without epistaxis. Left Lower Back Pain Score (Numeric/FACES): 9 sinus Pain Score (Numeric/FACES): 6 - Related Data Allergies Allergy/AdvReac Type Severity Reaction Status Date / Time ciprofloxacin Allergy Rash Verified 09/15/20 16:15 Eaoierr-Bmf-Iev Reductase AdvReac Other Verified 09/15/20 16:15 Inhibitor Home Meds: Home Meds Diltiazem [Dilacor XR] 240 mg PO DAILY #30 cap.er 04/25/18 [Rx] Furosemide [Lasix] 40 mg PO BIDDIURETIC #60 tablet 04/25/18 [Rx] Albuterol/Ipratropium [DuoNeb 3.0-0.5 MG/3 ML] 3 ml IH 5XDAY PRN 05/06/18 [History] Apixaban [Eliquis] 5 mg PO BIDMEALS 05/06/18 [History] Budesonide/Formoterol Fumarate [Symbicort 80-4.5 MCG] 2 puff IH BID 05/06/18 [History] Finasteride [Proscar] 5 mg PO DAILY 10/21/18 [History] Ibuprofen [Motrin] 600 mg PO Q8H PRN #30 tab 06/18/19 [Rx] Ascorbic Acid [Vitamin C] 250 mg PO DAILY 03/24/20 [History] Aspirin 325 mg PO DAILY 03/24/20 [History] Cholecalciferol (Vitamin D3) [Vitamin D3] 400 unit PO DAILY 03/24/20 [History] Omeprazole 20 mg PO BIDMEALS 03/24/20 [History] Sodium Chloride 0.9 % (Flush) [Monoject 0.9% Sodium Chloride] 10 ml FLUSH DAILY 03/24/20 [History] Sulfamethoxazole/Trimethoprim [Sulfamethoxazole-Tmp Ds Tablet] 1 each PO BID #14 tablet 03/26/20 [Rx] Past Medical History HEENT History: Reports: Impaired Vision Cardiovascular History: Reports: Afib, Heart Failure, Hypertension, Pulmonary Hypertension, PVD Other Cardiovascular History: heartrate rapid admit to ER today 147 Respiratory History: Reports: COPD, Pneumonia, Recurrent Other Respiratory History: PULMONARY HYPERTENSION, PLEURAL EFFUSION Gastrointestinal History: Reports: GI Bleed, PUD Other Gastrointestinal History: Hx abdominal surgery not sure why. Hx GI + rectal bleeding, HX PEPTIC Genitourinary History: Reports: Prostate Disorder, Pyelonephritis, Retention, Urinary, Urinary Incontinence, UTI, Recurrent, Other (See Below) Other Genitourinary History: BLADDER DIVERTICULUM, ENLARGED PROSTATE W/ URINARY OBSTRUCTION, LUTS Musculoskeletal History: Reports: Arthritis, Back Pain, Chronic, Osteoporosis Other Musculoskeletal History: INTRASPINAL ABCESS, RIB FRACTURES Neurological History: Reports: None Psychiatric History: Reports: None Other Psychiatric History: NICOTENE DEPENDENCE Endocrine/Metabolic History: Reports: Osteoporosis Other Endocrine/Metabolic History: had in past Hematologic History: Reports: None Immunologic History: Reports: None Oncologic (Cancer) History: Reports: None Dermatologic History: Reports: Venous Stasis Dermatitis Other Dermatologic History: Hx cellulitis of lower legs. - Infectious Disease History Infectious Disease History: Reports: Chicken Pox, Measles - Past Surgical History Head Surgeries/Procedures: Reports: None HEENT Surgical History: Reports: Oral Surgery Cardiovascular Surgical History: Reports: None Respiratory Surgical History: Reports: None GI Surgical History: Reports: Colonoscopy, Other (See Below) Other GI Surgeries/Procedures: Hx splenectomy at age 11. Male Surgical History: Reports: None Endocrine Surgical History: Reports: None Neurological Surgical History: Reports: Other (See Below) Other Neurological Surgeries/Procedures: see above, had back surgery Musculoskeletal Surgical History: Reports: Shoulder Surgery, Other (See Below) Other Musculoskeletal Surgeries/Procedures:: States he had surgery for osteomyelitis in back, has plates and screws, ribs removed. Oncologic Surgical History: Reports: None Dermatological Surgical History: Reports: None Social & Family History - Family History Family Medical History: Noncontributory HEENT: Reports: Cataract, Impaired Vision Respiratory: Reports: Asthma Musculoskeletal: Reports: Arthritis Neurological: Reports: None - Caffeine Use Caffeine Use: Reports: Coffee Other Caffeine Use: 10 cups a day of coffee. Caffeine Use Comment: 10 cups of coffee a day. ED ROS GENERAL - Review of Systems Review Of Systems: See Below Constitutional: Reports: Malaise, Weakness, Fatigue HEENT: Reports: Eye Discharge (right), Sinus Problem (right facial swelling) Respiratory: Reports: Shortness of Breath, Wheezing, Cough, Sputum Cardiovascular: Reports: Dyspnea on Exertion Endocrine: Reports: No Symptoms GI/Abdominal: Reports: No Symptoms : Reports: Other (needs suprapubic catheter changed soon) Musculoskeletal: Reports: Back Pain Skin: Reports: No Symptoms Neurological: Reports: Dizziness, Headache Psychiatric: Reports: No Symptoms Hematologic/Lymphatic: Reports: No Symptoms Immunologic: Reports: No Symptoms ED EXAM, GENERAL - Physical Exam Exam: See Below Exam Limited By: No Limitations General Appearance: Alert, WD/WN, No Apparent Distress Eye Exam: Right Eye: Conjunctival Injection, Bilateral Eye: EOMI, PERRL Ears: Normal External Exam Nose: Nasal Drainage Throat/Mouth: Other (edentulous upper ridge, numerous caried teeth lower ridge with chronic gingivitis) Head: Facial Swelling (R malar surface), Facial Tenderness Neck: Normal Inspection, Supple, Non-Tender Respiratory/Chest: Chest Non-Tender, Decreased Breath Sounds, Crackles, Rhonchi, Wheezing, Prolonged Expiration Cardiovascular: No Edema, No JVD, No Murmur, Irregularly Irregular GI/Abdominal: Normal Bowel Sounds, Soft, Non-Tender, No Organomegaly, No Distention, No Mass, Other (suprapubic catheter present) (Male) Exam: Deferred Rectal (Males) Exam: Deferred Back Exam: Other (kyphosis, limited tenderness of midthoracic spine) Extremities: Other (loss of muscle mass, poor hygiene) Neurological: Alert, Oriented, CN II-XII Intact, No Motor/Sensory Deficits Psychiatric: Normal Affect, Normal Mood Skin Exam: Warm, Dry, Intact Lymphatic: No Adenopathy Course - Vital Signs Text/Narrative:: Following assessment, I obtained a 2 view chest x ray: COPD appears baseline from prior studies, no active infiltrates; Head CT wo contrast: no sinusitis, no CVA or bleeding, mild brain atrophy; Hgb 15.6 gm, WBC 10,300, plts 80,000; CMP noting some elevation of LFTs, Covid 19 screen NEG. I changed the suprapubic catheter with a #18 Fr with 10 ml NS into 30 ml baloon. Last Recorded V/S: Last Vital Signs Temp 36.6 C 09/15/20 15:37 Pulse 100 09/15/20 17:21 Resp 21 H 09/15/20 15:37 BP 128/70 09/15/20 15:37 Pulse Ox 100 09/15/20 15:37 - Orders/Labs/Meds Orders: Active Orders 24 hr Category Date Time Status RT Aerosol Therapy [RC] ASDIRECTED Care 09/15/20 16:33 Active UA W/MICROSCOPIC [URIN] Stat Lab 09/15/20 16:32 Ordered Labs: Laboratory Tests 09/15/20 09/15/20 09/15/20 Range/Units 16:45 16:45 16:50 WBC 10.3 (4.5-12.0) X10-3/uL RBC 4.71 (4.30-5.75) x10(6)uL Hgb 15.4 (13.5-17.8) g/dL Hct 46.6 (30.0-51.3) % MCV 98.9 H (80-96) fL MCH 32.8 (27.7-33.6) pg MCHC 33.2 (32.2-35.4) g/dL RDW 17.1 H (11.5-15.5) % Plt Count 80 L (125-369) X10(3)uL MPV 13.4 H (7.4-10.4) fL Add Manual Diff Yes Neutrophils % (Manual) 79 (46-82) % Band Neutrophils % 1 (0-6) % Lymphocytes % (Manual) 15 (13-37) % Monocytes % (Manual) 5 (4-12) % Sodium 139 (135-145) mmol/L Potassium 4.2 (3.5-5.3) mmol/L Chloride 94 L D (100-110) mmol/L Carbon Dioxide 33 H (21-32) mmol/L BUN 20 H (7-18) mg/dL Creatinine 1.0 (0.70-1.30) mg/dL Est Cr Clr Drug Dosing 58.21 mL/min Estimated GFR (MDRD) > 60 (>60) BUN/Creatinine Ratio 20.0 (9-20) Glucose 107 (80-116) mg/dL Calcium 9.8 (8.6-10.2) mg/dL Total Bilirubin 2.3 H (0.1-1.3) mg/dL AST 127 H D (5-25) IU/L ALT 87 H D (12-36) U/L Alkaline Phosphatase 131 H (56-112) IU/L Total Protein 7.7 (6.0-8.0) g/dL Albumin 3.7 (3.2-4.6) g/dL Globulin 4.0 g/dL Albumin/Globulin Ratio 0.9 SARS-CoV-2 RNA (RORO) Negative (NEGATIVE) Meds: Medications Discontinued Medications Generic Name Dose Route Start Last Admin Trade Name Freq PRN Reason Stop Dose Admin Albuterol/Ipratropium 3 ml 09/15/20 16:32 09/15/20 17:21 Duoneb 3.0-0.5 Mg/3 Ml NEB 09/15/20 16:33 3 ml ONETIME ONE Administration Tramadol HCl 50 mg 09/15/20 16:36 09/15/20 17:20 Ultram PO 09/15/20 16:37 50 mg ONETIME ONE Administration Departure - Departure Time of Disposition: 18:34 Disposition: Home, Self-Care 01 Condition: Fair Clinical Impression: Dizziness, nonspecific Back pain Qualifiers: Back pain location: low back pain Chronicity: unspecified Back pain laterality: midline Sciatica presence: without sciatica Qualified Code(s): M54.5 - Low back pain Rodríguez catheter problem Qualifiers: Encounter type: initial encounter Qualified Code(s): T83.9XXA - Unspecified complication of genitourinary prosthetic device, implant and graft, initial encounter - Discharge Information *PRESCRIPTION DRUG MONITORING PROGRAM REVIEWED*: Not Applicable *COPY OF PRESCRIPTION DRUG MONITORING REPORT IN PATIENT LATESHA: Not Applicable Referrals: PCP,None [Ordering Only Provider] - Forms: ED Department Discharge Sepsis Event Note (ED) - Evaluation Sepsis Screening Result: No Definite Risk - Focused Exam Vital Signs: Vital Signs Temp Pulse Resp BP Pulse Ox 09/15/20 17:21 100 09/15/20 15:37 36.6 C 72 21 H 128/70 100 - Problem List & Annotations (1) Rodríguez catheter problem SNOMED Code(s): 609846065 Code(s): T83.9XXA - UNSP COMPLICATION OF GENITOURINARY PROSTH DEV/GRFT, INIT Status: Acute Current Visit: Yes Annotation/Comment:: Suprapubic catheter change uneventfully, attached no leg bag. Qualifiers: Encounter type: initial encounter Qualified Code(s): T83.9XXA - Unspecified complication of genitourinary prosthetic device, implant and graft, initial encounter (2) Backache SNOMED Code(s): 729104119 Code(s): M54.9 - DORSALGIA, UNSPECIFIED Status: Acute Current Visit: No Annotation/Comment:: Thoractic back pain from fall, no findings for nex fx. He was given Tramadol for pain relief. (3) Dizziness, nonspecific SNOMED Code(s): 962595422, 269314284 Code(s): R42 - DIZZINESS AND GIDDINESS Status: Acute Current Visit: Yes Annotation/Comment:: Dizziness, multifactorial and related to advancing age and deconditioning. He would benefit from a walker or cane for assistance. - Problem List Review Problem List Initiated/Reviewed/Updated: Yes - My Orders Last 24 Hours: My Active Orders 09/15/20 16:32 UA W/MICROSCOPIC [URIN] Stat 09/15/20 16:33 RT Aerosol Therapy [RC] ASDIRECTED - Assessment/Plan Last 24 Hours: My Active Orders 09/15/20 16:32 UA W/MICROSCOPIC [URIN] Stat 09/15/20 16:33 RT Aerosol Therapy [RC] ASDIRECTED Plan: Follow up with PCP.
--- NOTE | 2020-09-15 18:14 | CR ---
INDICATION: Chest congestion. Fell. CHEST, TWO VIEWS: PA and lateral views of the chest 09/15/20 were compared with 11/02/17 and 05/06/18 and revealed findings compatible with severe COPD. There is fusion at the lower thoracic spine which appears to be stable. Compression fracture at the mid thoracic spine is stable with 1 just above it minimal and most likely stable, but perhaps very minimally increased compared with the previous study of 2017. The heart appears to be within normal limits in size. The aorta is tortuous with calcification in the arch. Diminished bone density is noted, compatible with osteoporosis. IMPRESSION: 1. No definite acute process, but difficult to exclude a very minimal compression fracture at an upper middle thoracic level. 2. COPD. 3. ASD aorta. 4. Stable fusion lower thoracic spine. 5. 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 Reports were given in person to Dr. Freedman immediately after they were available. [facility]
--- NOTE | 2020-09-15 18:20 | CT ---
INDICATION: Suspected right sinusitis, imbalance issues, struck head with a fall. CT HEAD WITHOUT CONTRAST: Spiral 3.75 mm axial sections were obtained through the brain without contrast with sagittal, coronal, and axial reconstructions 09/15/20 - no previous studies. Total exam DLP was 1580.01 mGy-cm. There is internal carotid artery calcification noted. The paranasal sinuses and relatively minimal number of mastoid air cells appear to be normally aerated. Degenerative changes are noted at the odontoatlantian joint. The cranium appears to be intact. The orbits were intact. What appears to be a previous nasal bone fracture with adequate position and alignment and nonunion is noted, mostly at the left nasal bones. No shift of midline structures or significant ventricular abnormalities were identified. Mild prominence of the ventricles is compatible with the patients' age. White matter changes are noted, compatible with mild microvascular disease, mostly frontal in location with no other abnormal areas of density - no bleeding site or hematoma is noted. There does appear to be a mild degree of cortical atrophy. This is mostly in the frontoparietal area. IMPRESSION: 1. No acute intracranial abnormality identified. 2. No evidence of sinusitis. 3. Cerebrovascular disease with minimal microvascular disease. 4. Frontoparietal cortical atrophy. Reports were given in person to Dr. Freedman immediately after they were available. [facility]
[2020-09-15 19:59] VITALS: BP 119/76; PULSE 109
== END 2020-09-15 19:20 | disposition home or self-care (01) ==
LOC: FB.ED 15:37
DX: R42 Dizziness and giddiness (principal); M54.5 Low back pain; T83.9XXA Unspecified complication of genitourinary prosthetic device, implant and graft, initial encounter; I11.0 Hypertensive heart disease with heart failure; I50.9 Heart failure, unspecified; I48.91 Unspecified atrial fibrillation; J44.9 Chronic obstructive pulmonary disease, unspecified; Z88.1 Allergy status to other antibiotic agents; Z88.8 Allergy status to other drugs, medicaments and biological substances; Z79.82 Long term (current) use of aspirin; Z79.899 Other long term (current) drug therapy
CPT/HCPCS: 36415; 70450; 71046; 80053; 81001; 85025; 87086; 87088; 87186; 99284; 99285; A9270; U0002; J7620-GY

== ENCOUNTER 2020-11-02 08:49 | Emergency (ER) | payer MEDICARE, MEDICAID ==
[2020-11-02 09:04] VITALS: BP 108/77; PULSE 83
--- NOTE | 2020-11-02 09:14 | EDM.PDOC ---
ED HPI GENERAL MEDICAL PROBLEM - General Stated Complaint: FALL Time Seen by Provider: 11/02/20 08:55 Source of Information: Reports: Patient History Limitations: Reports: No Limitations - History of Present Illness INITIAL COMMENTS - FREE TEXT/NARRATIVE: Patient presented o the ED because he trip and fell while going down the stets in the garage. He hit his R shoulder and head on the wall before falling down on the floor. He c/o Rt shoulder pain, denies having any headache,N/V. There is no LOC after the fall. Bilateral Shoulder Pain Score (Numeric/FACES): 7 Abdomen Pain Score (Numeric/FACES): 8 - Related Data Allergies Allergy/AdvReac Type Severity Reaction Status Date / Time ciprofloxacin Allergy Rash Verified 11/02/20 09:01 [id number] Reductase AdvReac Other Verified 11/02/20 09:01 Inhibitor Home Meds: Home Meds Diltiazem [Dilacor XR] 240 mg PO DAILY #30 cap.er 04/25/18 [Rx] Furosemide [Lasix] 40 mg PO BIDDIURETIC #60 tablet 04/25/18 [Rx] Apixaban [Eliquis] 5 mg PO BIDMEALS 05/06/18 [History] Budesonide/Formoterol Fumarate [Symbicort 80-4.5 MCG] 2 puff IH BID 05/06/18 [History] Finasteride [Proscar] 5 mg PO DAILY 10/21/18 [History] Naproxen 500 mg PO BID #14 tablet 11/02/20 [Rx] Sulfamethoxazole/Trimethoprim [Bactrim Ds Tablet] 1 each PO BID #14 tablet 11/02/20 [Rx] Past Medical History HEENT History: Reports: Impaired Vision Cardiovascular History: Reports: Afib, Heart Failure, Hypertension, Pulmonary Hypertension, PVD Other Cardiovascular History: heartrate rapid admit to ER today 147 Respiratory History: Reports: COPD, Pneumonia, Recurrent Other Respiratory History: PULMONARY HYPERTENSION, PLEURAL EFFUSION Gastrointestinal History: Reports: GI Bleed, PUD Other Gastrointestinal History: Hx abdominal surgery not sure why. Hx GI + rectal bleeding, HX PEPTIC Genitourinary History: Reports: Prostate Disorder, Pyelonephritis, Retention, Urinary, Urinary Incontinence, UTI, Recurrent, Other (See Below) Other Genitourinary History: BLADDER DIVERTICULUM, ENLARGED PROSTATE W/ URINARY OBSTRUCTION, LUTS Musculoskeletal History: Reports: Arthritis, Back Pain, Chronic, Osteoporosis Other Musculoskeletal History: INTRASPINAL ABCESS, RIB FRACTURES Neurological History: Reports: None Psychiatric History: Reports: None Other Psychiatric History: NICOTENE DEPENDENCE Endocrine/Metabolic History: Reports: Osteoporosis Other Endocrine/Metabolic History: had in past Hematologic History: Reports: None Immunologic History: Reports: None Oncologic (Cancer) History: Reports: None Dermatologic History: Reports: Venous Stasis Dermatitis Other Dermatologic History: Hx cellulitis of lower legs. - Infectious Disease History Infectious Disease History: Reports: Chicken Pox, Measles - Past Surgical History Head Surgeries/Procedures: Reports: None HEENT Surgical History: Reports: Oral Surgery Cardiovascular Surgical History: Reports: None Respiratory Surgical History: Reports: None GI Surgical History: Reports: Colonoscopy, Other (See Below) Other GI Surgeries/Procedures: Hx splenectomy at age 11. Male Surgical History: Reports: None Endocrine Surgical History: Reports: None Neurological Surgical History: Reports: Other (See Below) Other Neurological Surgeries/Procedures: see above, had back surgery Musculoskeletal Surgical History: Reports: Shoulder Surgery, Other (See Below) Other Musculoskeletal Surgeries/Procedures:: States he had surgery for osteomyelitis in back, has plates and screws, ribs removed. Oncologic Surgical History: Reports: None Dermatological Surgical History: Reports: None Social & Family History - Family History Family Medical History: No Pertinent Family History HEENT: Reports: Cataract, Impaired Vision Respiratory: Reports: Asthma Musculoskeletal: Reports: Arthritis Neurological: Reports: None - Caffeine Use Caffeine Use: Reports: Coffee Other Caffeine Use: 10 cups a day of coffee. Caffeine Use Comment: 10 cups of coffee a day. ED ROS GENERAL - Review of Systems Review Of Systems: See Below Constitutional: Reports: No Symptoms HEENT: Reports: No Symptoms Respiratory: Reports: Shortness of Breath, Cough Cardiovascular: Reports: No Symptoms Endocrine: Reports: No Symptoms GI/Abdominal: Reports: Abdominal Pain, Nausea : Reports: Dysuria Musculoskeletal: Reports: Shoulder Pain Skin: Reports: No Symptoms ED EXAM, GENERAL - Physical Exam Exam: See Below Exam Limited By: No Limitations General Appearance: Alert Eye Exam: Bilateral Eye: PERRL Ears: Normal External Exam, Normal Canal Nose: Normal Inspection, Normal Mucosa Throat/Mouth: Normal Inspection, Normal Lips Head: Atraumatic, Normocephalic Neck: Normal Inspection, Supple, Non-Tender Respiratory/Chest: No Respiratory Distress, Lungs Clear, Normal Breath Sounds Cardiovascular: Normal Peripheral Pulses, Regular Rate, Rhythm, No Edema, No Gallop GI/Abdominal: Normal Bowel Sounds, Soft, Other (diffusely tender) Back Exam: Normal Inspection, Full Range of Motion Extremities: Normal Inspection, Normal Range of Motion, Non-Tender Neurological: Alert, Oriented, CN II-XII Intact, Normal Cognition, Normal Gait Course - Vital Signs Text/Narrative:: Lab,EKG,CXR,Rt shoulder xray, CT abd/pelvis result was discussed with the patient NS 1 L in 2 hours Zofran 4 mg IV x1 Morphine 4 mg IV x1 Last Recorded V/S: Last Vital Signs Temp 36.9 C 11/02/20 08:49 Pulse 83 11/02/20 08:49 Resp 20 11/02/20 08:49 BP 108/77 11/02/20 08:49 Pulse Ox 97 11/02/20 08:49 - Orders/Labs/Meds Orders: Active Orders 24 hr Category Date Time Status EKG Documentation Completion [RC] ASDIRECTED Care 11/02/20 09:47 Active CTA Abd Pelv w Cont [CT] Stat Exams 11/02/20 10:59 Taken Sodium Chloride 0.9% [Normal Saline] 1,000 ml Med 11/02/20 09:45 Active IV ASDIRECTED Sodium Chloride 0.9% [Saline Flush] Med 11/02/20 09:43 Active 10 ml FLUSH ASDIRECTED PRN Saline Lock Insert [OM.PC] Routine Oth 11/02/20 09:43 Ordered EKG 12 Lead [EK] Routine Ther 11/02/20 09:46 Ordered Medication Orders Sodium Chloride (Normal Saline) 1,000 mls @ 500 mls/hr IV ASDIRECTED SRAVAN Sodium Chloride (Saline Flush) 10 ml FLUSH ASDIRECTED PRN PRN Reason: Keep Vein Open Labs: Laboratory Tests 11/02/20 11/02/20 11/02/20 Range/Units 09:52 09:52 09:52 WBC 15.9 H (3.2-10.1) x10-3/uL RBC 4.55 (3.90-5.90) x10(6)uL Hgb 14.7 (12.9-17.7) g/dL Hct 43.8 (38.3-50.1) % MCV 96.4 (80.8-98.7) fL MCH 32.3 (27.0-33.3) pg MCHC 33.5 (28.7-35.3) g/dL RDW 15.5 H (12.4-15.0) % Plt Count 132 (117-477) x10(3)uL MPV 12.7 H (6.7-11.0) fL Add Manual Diff Yes Neutrophils % (Manual) 85 H (46-82) % Band Neutrophils % 7 H (0-6) % Lymphocytes % (Manual) 4 L (13-37) % Monocytes % (Manual) 3 L (4-12) % Metamyelocytes % 1 H (0-0) % Anisocytosis Few Sodium 134 L (135-145) mmol/L Potassium 3.1 L D (3.5-5.3) mmol/L Chloride 89 L* D (100-110) mmol/L Carbon Dioxide 36 H (21-32) mmol/L BUN 19 H (7-18) mg/dL Creatinine 1.1 (0.70-1.30) mg/dL Est Cr Clr Drug Dosing TNP Estimated GFR (MDRD) > 60 (>60) BUN/Creatinine Ratio 17.3 (9-20) Glucose 144 H (80-116) mg/dL Calcium 9.2 (8.6-10.2) mg/dL Total Bilirubin 2.2 H (0.1-1.3) mg/dL AST 48 H D (5-25) IU/L ALT 28 D (12-36) U/L Alkaline Phosphatase 116 H (56-112) IU/L Troponin I (4.0-60.3) pg/mL NT-Pro-B Natriuret Pep (<=125) pg/mL Total Protein 8.2 H (6.0-8.0) g/dL Albumin 3.7 (3.2-4.6) g/dL Globulin 4.5 g/dL Albumin/Globulin Ratio 0.8 Amylase 39 (25-115) U/L Lipase 68 L (73-393) U/L Urine Color (YELLOW) Urine Appearance (CLEAR) Urine pH (5.0-6.5) Ur Specific Protivin (1.010-1.025) Urine Protein (NEGATIVE) mg/dL Urine Glucose (UA) (NORMAL) mg/dL Urine Ketones (NEGATIVE) mg/dL Urine Occult Blood (NEGATIVE) Urine Nitrite (NEGATIVE) Urine Bilirubin (NEGATIVE) Urine Urobilinogen (NEGATIVE) mg/dL Ur Leukocyte Esterase (NEGATIVE) Urine RBC (0-5) Urine WBC (0-5) Ur Squamous Epith Cells (NS,R,O) Urine Bacteria (NS) 11/02/20 11/02/20 Range/Units 09:52 11:15 WBC (3.2-10.1) x10-3/uL RBC (3.90-5.90) x10(6)uL Hgb (12.9-17.7) g/dL Hct (38.3-50.1) % MCV (80.8-98.7) fL MCH (27.0-33.3) pg MCHC (28.7-35.3) g/dL RDW (12.4-15.0) % Plt Count (117-477) x10(3)uL MPV (6.7-11.0) fL Add Manual Diff Neutrophils % (Manual) (46-82) % Band Neutrophils % (0-6) % Lymphocytes % (Manual) (13-37) % Monocytes % (Manual) (4-12) % Metamyelocytes % (0-0) % Anisocytosis Sodium (135-145) mmol/L Potassium (3.5-5.3) mmol/L Chloride (100-110) mmol/L Carbon Dioxide (21-32) mmol/L BUN (7-18) mg/dL Creatinine (0.70-1.30) mg/dL Est Cr Clr Drug Dosing Estimated GFR (MDRD) (>60) BUN/Creatinine Ratio (9-20) Glucose (80-116) mg/dL Calcium (8.6-10.2) mg/dL Total Bilirubin (0.1-1.3) mg/dL AST (5-25) IU/L ALT (12-36) U/L Alkaline Phosphatase (56-112) IU/L Troponin I 25.5 (4.0-60.3) pg/mL NT-Pro-B Natriuret Pep 1271 H* (<=125) pg/mL Total Protein (6.0-8.0) g/dL Albumin (3.2-4.6) g/dL Globulin g/dL Albumin/Globulin Ratio Amylase (25-115) U/L Lipase (73-393) U/L Urine Color Yellow (YELLOW) Urine Appearance Cloudy (CLEAR) Urine pH 6.0 (5.0-6.5) Ur Specific Protivin 1.020 (1.010-1.025) Urine Protein 30 H (NEGATIVE) mg/dL Urine Glucose (UA) Normal (NORMAL) mg/dL Urine Ketones Negative (NEGATIVE) mg/dL Urine Occult Blood Large H (NEGATIVE) Urine Nitrite Positive H (NEGATIVE) Urine Bilirubin Negative (NEGATIVE) Urine Urobilinogen Normal (NEGATIVE) mg/dL Ur Leukocyte Esterase Large H (NEGATIVE) Urine RBC 10-20 H (0-5) Urine WBC 50-75 H (0-5) Ur Squamous Epith Cells Occasional (NS,R,O) Urine Bacteria Moderate H (NS) Meds: Medications Generic Name Dose Route Start Last Admin Trade Name Freq PRN Reason Stop Dose Admin Sodium Chloride 1,000 mls @ 500 mls/hr 11/02/20 09:45 Normal Saline IV ASDIRECTED SRAVAN Sodium Chloride 10 ml 11/02/20 09:43 Saline Flush FLUSH ASDIRECTED PRN Keep Vein Open Discontinued Medications Generic Name Dose Route Start Last Admin Trade Name Freq PRN Reason Stop Dose Admin Iopamidol 100 ml 11/02/20 10:35 11/02/20 11:01 Isovue-370 (76%) IV 11/02/20 10:36 77 ml . DIRECTED ONE Administration Morphine Sulfate 4 mg 11/02/20 09:44 11/02/20 09:59 Morphine IVPUSH 11/02/20 09:45 4 mg ONETIME ONE Administration Ondansetron HCl 4 mg 11/02/20 09:44 11/02/20 10:01 Zofran IVPUSH 11/02/20 09:45 4 mg ONETIME ONE Administration Departure - Departure Time of Disposition: 11:50 Disposition: Home, Self-Care 01 Condition: Good Clinical Impression: Acute cystitis, Shoulder strain, Head injury, UTI, Urinary tract infectious disease, Cystitis - Discharge Information Prescriptions: Sulfamethoxazole/Trimethoprim [Bactrim Ds Tablet] 1 each PO BID #14 tablet Naproxen 500 mg PO BID #14 tablet Instructions: Shoulder Sprain, Interstitial Cystitis, Urinary Tract Infection, Adult, Head Injury, Adult, [id number] Referrals: PCP,None [Primary Care Provider] - Forms: ED Department Discharge Additional Instructions: Please read discharge instructions on UTI, Acute cystitis and shoulder strain Increase oral fluids Naproxen 500 mg twice daily for your cystitis and any pain Bactrim DS twice daily for 7 days Follow up as needed Sepsis Event Note (ED) - Evaluation Sepsis Screening Result: No Definite Risk - Focused Exam Vital Signs: Vital Signs Temp Pulse Resp BP Pulse Ox 11/02/20 08:49 36.9 C 83 20 108/77 97 - My Orders Last 24 Hours: My Active Orders 11/02/20 09:43 Sodium Chloride 0.9% [Saline Flush] 10 ml FLUSH ASDIRECTED PRN Saline Lock Insert [OM.PC] Routine 11/02/20 09:45 Sodium Chloride 0.9% [Normal Saline] 1,000 ml IV ASDIRECTED 11/02/20 09:46 EKG 12 Lead [EK] Routine 11/02/20 09:47 EKG Documentation Completion [RC] ASDIRECTED 11/02/20 10:59 CTA Abd Pelv w Cont [CT] Stat - Assessment/Plan Last 24 Hours: My Active Orders 11/02/20 09:43 Sodium Chloride 0.9% [Saline Flush] 10 ml FLUSH ASDIRECTED PRN Saline Lock Insert [OM.PC] Routine 11/02/20 09:45 Sodium Chloride 0.9% [Normal Saline] 1,000 ml IV ASDIRECTED 11/02/20 09:46 EKG 12 Lead [EK] Routine 11/02/20 09:47 EKG Documentation Completion [RC] ASDIRECTED 11/02/20 10:59 CTA Abd Pelv w Cont [CT] Stat
[2020-11-02] MEDS ORDERED: Sodium Chloride 0.9% 10 ML Syringe FLUSH PRN (09:43)
[2020-11-02] MEDS ORDERED: Ondansetron 4 MG/2 ML SDV IVPUSH ONE (09:44)
[2020-11-02] MEDS ORDERED: Morphine 4 MG/ML VIAL IVPUSH ONE (09:44)
[2020-11-02] MEDS ORDERED: Sodium Chloride 0.9% 1,000 ML IV SCH (09:45)
--- NOTE | 2020-11-02 10:13 | CT ---
INDICATION: Head injury - hit right gnosticist area/fall. CT HEAD WITHOUT CONTRAST: Spiral 3.75 mm axial sections were obtained through the brain without contrast with sagittal and coronal reconstructions and axial reconstructions 11/02/20 and compared with 09/15/20. Total exam DLP was 1348.07 mGy-cm. The paranasal sinuses were well aerated. Mastoid air cells are relatively few but appear to be normally aerated. [id number] degenerative changes noted at the odontoatlantian joint. No cranial fracture site or scalp hematoma was noted. No shift of midline structures was identified. Ventricles are minimally prominent and likely normal for age, unchanged from the previous study. White matter changes noted compatible with mild microvascular disease - these appear fairly stable. Calcifications are noted in the internal carotid arteries as previously. The orbits appear to be intact. The sulci, especially in the parietal area are somewhat prominent compatible with a mild degree of cortical atrophy. IMPRESSION: 1. Stable CT brain with no acute intracranial abnormality. 2. Cerebrovascular disease with mild microvascular disease type changes in the white matter - stable. 3. Mild parietal cortical atrophy - stable. Report was called to Dr. Douglas at 1148 hours. [facility]
--- NOTE | 2020-11-02 10:17 | CR ---
INDICATION: Right shoulder injury - fall. RIGHT SHOULDER: Four images of the right shoulder in 3 projections revealed no evidence of an acute fracture or dislocation. There are some minimal degenerative changes at the glenohumeral joint with mild degenerative changes at the AC joint. An appearance of demineralization is suggested which could be on the basis of osteoporosis or osteomalacia, but should be correlated clinically. IMPRESSION: No acute fracture or dislocation. Report was called to Dr. Douglas at 1148 hours. [facility]
[2020-11-02] MEDS ORDERED: Iopamidol 755 Mg/ML 100 ML Bottle IV ONE (10:35)
--- NOTE | 2020-11-02 11:08 | CR ---
INDICATION: Cough, dyspnea. CHEST ONE VIEW: An AP upright portable view of the chest was obtained 11/02/20 and compared with 09/15/20 and 05/06/18. Again noted is a fusion of the lower thoracic spine with plate and screws appearing intact. There is increased density at the medial left lung base compatible with infiltrate with some minimal pleural effusion suggested - pneumonia and pleuritis suggested. At the right lung base there are heavy markings which may be fibrotic and/or atelectatic and are slightly more prominent than on the previous study, likely on the basis of relatively poor inspiration. The heart appeared to be at the upper limits of normal in size with tortuous aorta calcified in the arch and descending portion. IMPRESSION: 1. Left basilar pneumonia and pleuritis. 2. Probable ASHD. 3. Lower thoracic fusion. [facility]TDD
--- NOTE | 2020-11-02 12:07 | CT ---
INDICATION: Diffuse abdominal pain, history of AAA. CT ABDOMEN AND PELVIS WITH CONTRAST: Spiral 2.5 mm axial sections were obtained through the abdomen and pelvis with 77 cc Isovue 370 at 2 cc per second utilizing sagittal and coronal reconstructions 11/02/20 and compared with 03/24/20. Total exam DLP was 348.62 mGy-cm. With a localized eventration noted a the left diaphragm posteriorly. Heavy markings are noted at both lower lobes most likely fibrotic in nature, although some atelectatic change could also be present. Findings appear fairly stable without a definite active infiltrate or effusion. The heart is enlarged. No pericardial effusion was seen. The abdominal aorta was well visualized and opacified with contrast and revealed no evidence of abdominal aortic aneurysm. The iliac arteries also showed no aneurysmic dilatation. Aortic and iliac artery calcifications are noted. Femoral artery calcifications are also seen. A suprapubic catheter is noted in place with bulb, thickening of the wall of the urinary bladder is noted. The gallbladder was somewhat distended measuring 10.6 cm, this could be physiologic however and should be correlated clinically. Fusion is noted in the thoracolumbar spine with compression fractures appearing stable in the mid lumbar levels 3 and 4. The right kidney showed some minimal irregularity of the cortex as did the left to a lesser extent compatible with a mild degree of renal cortical scarring. There may be some mild renal cortical thinning present. A stable 34 mm probable simple cyst is noted at the lower middle pole posterior cortex of the left kidney as previously. It is almost entirely exophytic. No obstructive uropathy was identified. No solid mass lesions were seen of the kidneys. No specific liver abnormality was seen. Spleen is absent compatible with history of its removal. The pancreas appears grossly normal. The appendix is not definitely visualized. No evidence of free air or definite bowel obstruction is seen. The bowel appears to be in general, mildly distended with air and with a normal amount of stool seen in the colon. What appears to be a cystic mass noted in the lower pelvis on the previous examination appears to have almost completely resolved, question previous abscess with almost complete resolution. IMPRESSION: 1. Thickening of the wall of the urinary bladder with suprapubic catheter in place, question possibly of cystitis. 2. No evidence of abdominal aortic aneurysm with atherosclerotic changes throughout the aorta and iliac arteries. 3. Stable left renal cyst 3.4 cm. 4. Somewhat distended appearing gallbladder could be due to NPO status, but should be correlated clinically as to the possibility of acalculous or nonvisualized calculous cholecystitis. 5. Osteoporotic compressions in the mid lumbar spine with fusion at the thoracolumbar spine. 6. Renal cortical thinning is suggested. 7. ASHD. 8. Probable fibrotic changes at the lung bases - appear mostly stable. 9. What appears to be a cystic mass noted in the lower pelvis on the previous examination appears to have almost completely resolved, question previous abscess with almost complete resolution. Report was called to Dr. Douglas at 1138 hours. [facility]
== END 2020-11-02 13:10 | disposition home or self-care (01) ==
LOC: FB.ED 08:49
DX: S46.911A Strain of unspecified muscle, fascia and tendon at shoulder and upper arm level, right arm, initial encounter (principal); S09.90XA Unspecified injury of head, initial encounter; N30.00 Acute cystitis without hematuria; I48.91 Unspecified atrial fibrillation; I11.0 Hypertensive heart disease with heart failure; I50.9 Heart failure, unspecified; J44.9 Chronic obstructive pulmonary disease, unspecified; Z79.01 Long term (current) use of anticoagulants; Z88.1 Allergy status to other antibiotic agents; Z88.8 Allergy status to other drugs, medicaments and biological substances; Z79.899 Other long term (current) drug therapy; W10.9XXA Fall (on) (from) unspecified stairs and steps, initial encounter
CPT/HCPCS: 36415; 70450; 71045; 73030-RT; 74174; 80053; 81001; 82150; 83690; 83880; 84484; 85025; 87086; 87088; 87186; 93005; 96374; 96375; 99283; 99285-25; J2270; J2405; J7030; Q9967

== ENCOUNTER 2021-03-21 05:59 | Emergency (ER) | payer MEDICARE, MEDICAID ==
[2021-03-21] MEDS ORDERED: Ketorolac 60 MG/2 ML SDV IM ONE (06:40)
--- NOTE | 2021-03-21 06:53 | EDM.PDOC ---
ED HPI GENERAL MEDICAL PROBLEM - General Chief Complaint: General Stated Complaint: Back pain, Suprapubic cath leakage Time Seen by Provider: 03/21/21 06:15 Source of Information: Reports: Patient History Limitations: Reports: No Limitations - History of Present Illness INITIAL COMMENTS - FREE TEXT/NARRATIVE: c/o lbp x 1d, c/o catheter leak x 1d pt changes his suprapubic catheter monthly, d/t change PCP Courtney Alejandro, says he rarely sees here, last saw her "awhile" ago lives alone, out in his backyard yesterday, stepped into a hole and had a flare of his LBP brings in his pills bottles which includes cyclobenzaprine 10 mg has had fusion of his lower t-spine, pt does not remember the reason, says it was not due to a fx PSH: lower t-spine fusion, 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 says he does not fall at home, does not use walker or cane lower back Pain Score (Numeric/FACES): 6 - Related Data Allergies Allergy/AdvReac Type Severity Reaction Status Date / Time ciprofloxacin Allergy Rash Verified 03/21/21 06:37 Whoapjp-Dyu-Zak Reductase AdvReac Other Verified 03/21/21 06:37 Inhibitor Home Meds: Home Meds Diltiazem [Dilacor XR] 240 mg PO DAILY #30 cap.er 04/25/18 [Rx] Furosemide [Lasix] 40 mg PO BIDDIURETIC #60 tablet 04/25/18 [Rx] Finasteride [Proscar] 5 mg PO DAILY 10/21/18 [History] Amoxicillin/Potassium Clav [Amox-Clav 500-125 mg Tablet] 1 each PO BID #10 tablet 03/21/21 [Rx] Cyclobenzaprine [Flexeril] 10 mg PO TID PRN 03/21/21 [History] Naproxen 500 mg PO ASDIRECTED PRN 03/21/21 [History] Potassium Chloride [Klor-Con M20] 40 meq PO ASDIRECTED 03/21/21 [History] traMADol [Ultram] 50 mg PO Q6H PRN #15 tab 03/21/21 [Rx] Past Medical History HEENT History: Reports: Impaired Vision Cardiovascular History: Reports: Afib, Heart Failure, Hypertension, Pulmonary Hypertension, PVD Other Cardiovascular History: heartrate rapid admit to ER today 147 Respiratory History: Reports: COPD, Pneumonia, Recurrent Other Respiratory History: PULMONARY HYPERTENSION, PLEURAL EFFUSION Gastrointestinal History: Reports: GI Bleed, PUD Other Gastrointestinal History: Hx abdominal surgery not sure why. Hx GI + rectal bleeding, HX PEPTIC Genitourinary History: Reports: Prostate Disorder, Pyelonephritis, Retention, Urinary, Urinary Incontinence, UTI, Recurrent, Other (See Below) Other Genitourinary History: BLADDER DIVERTICULUM, ENLARGED PROSTATE W/ URINARY OBSTRUCTION, LUTS Musculoskeletal History: Reports: Arthritis, Back Pain, Chronic, Osteoporosis Other Musculoskeletal History: INTRASPINAL ABCESS, RIB FRACTURES Neurological History: Reports: None Psychiatric History: Reports: None Other Psychiatric History: NICOTENE DEPENDENCE Endocrine/Metabolic History: Reports: Osteoporosis Other Endocrine/Metabolic History: had in past Hematologic History: Reports: None Immunologic History: Reports: None Oncologic (Cancer) History: Reports: None Dermatologic History: Reports: Venous Stasis Dermatitis Other Dermatologic History: Hx cellulitis of lower legs. - Infectious Disease History Infectious Disease History: Reports: Chicken Pox, Measles - Past Surgical History Head Surgeries/Procedures: Reports: None HEENT Surgical History: Reports: Oral Surgery Cardiovascular Surgical History: Reports: None Respiratory Surgical History: Reports: None GI Surgical History: Reports: Colonoscopy, Other (See Below) Other GI Surgeries/Procedures: Hx splenectomy at age 11. Male Surgical History: Reports: None Endocrine Surgical History: Reports: None Neurological Surgical History: Reports: Other (See Below) Other Neurological Surgeries/Procedures: see above, had back surgery Musculoskeletal Surgical History: Reports: Shoulder Surgery, Other (See Below) Other Musculoskeletal Surgeries/Procedures:: States he had surgery for osteomyelitis in back, has plates and screws, ribs removed. Oncologic Surgical History: Reports: None Dermatological Surgical History: Reports: None Social & Family History - Family History Family Medical History: No Pertinent Family History HEENT: Reports: Cataract, Impaired Vision Respiratory: Reports: Asthma Musculoskeletal: Reports: Arthritis Neurological: Reports: None - Caffeine Use Caffeine Use: Reports: Coffee Other Caffeine Use: 10 cups a day of coffee. Caffeine Use Comment: 10 cups of coffee a day. ED ROS GENERAL - Review of Systems Review Of Systems: See Below Constitutional: Reports: No Symptoms HEENT: Reports: No Symptoms Respiratory: Reports: No Symptoms Cardiovascular: Reports: No Symptoms Endocrine: Reports: No Symptoms GI/Abdominal: Reports: No Symptoms. Denies: Abdominal Pain, Nausea, Vomiting : Reports: No Symptoms Musculoskeletal: Reports: Back Pain Skin: Reports: No Symptoms Neurological: Reports: No Symptoms Psychiatric: Reports: No Symptoms Hematologic/Lymphatic: Reports: No Symptoms Immunologic: Reports: No Symptoms ED EXAM,LOWER BACK PAIN/INJURY - Physical Exam Exam: See Below Exam Limited By: No Limitations General Appearance: Alert, WD/WN, No Apparent Distress, Other (alert, conversant, c/o pain lower t-spine with sitting) Head: Atraumatic, Normocephalic Neck: Normal Inspection Respiratory/Chest: No Respiratory Distress Cardiovascular: Regular Rate, Rhythm GI/Abdominal: Soft, Non-Tender Back Exam: Other (mild paravertebral spasm in lower back b/l, nontender at SI joints and iliac crests, has 1+ tender at palpation of t10-12, minimal tender at l-spine) Extremities: Non-Tender, No Pedal Edema Neurological: Alert, Normal Mood/Affect, CN II-XII Intact, No Motor/Sensory Deficits, Oriented x 3 Psychiatric: Normal Affect, Normal Mood Skin Exam: Warm, Dry, Intact, Normal Color, No Rash Lymphatic: No Adenopathy Course - Vital Signs Last Recorded V/S: Last Vital Signs Temp 36.3 C 03/21/21 11:35 Pulse 41 L 03/21/21 11:35 Resp 18 03/21/21 11:35 BP 122/57 L 03/21/21 11:35 Pulse Ox 96 03/21/21 11:35 - Orders/Labs/Meds Orders: Active Orders 24 hr Category Date Time Status Urinary Catheter Insertion [Insert Urinary Catheter] [ Care 03/21/21 06:55 Ordered OM.PC] ONETIME Lumbar Spine wo Cont [CT] Stat Exams 03/21/21 07:46 Taken CULTURE URINE [RM] Stat Lab 03/21/21 06:55 Received Peripheral IV Insertion Adult [OM.PC] Routine Oth 03/21/21 08:30 Ordered Labs: Laboratory Tests 03/21/21 03/21/21 03/21/21 Range/Units 06:55 07:00 07:00 WBC 11.2 H (3.2-10.1) x10-3/uL RBC 4.55 (3.90-5.90) x10(6)uL Hgb 13.5 (12.9-17.7) g/dL Hct 40.8 (38.3-50.1) % MCV 89.5 (80.8-98.7) fL MCH 29.7 (27.0-33.3) pg MCHC 33.2 (28.7-35.3) g/dL RDW 18.8 H (12.4-15.0) % Plt Count 91 L (117-477) x10(3)uL MPV 12.9 H (6.7-11.0) fL Neut % (Auto) 84.4 H (40.3-71.8) % Lymph % (Auto) 7.7 L (15.8-45.3) % [place] % (Auto) 7.2 (5.5-15.2) % Eos % (Auto) 0.0 L (0.1-6.8) % Baso % (Auto) 0.7 (0.3-3.8) % Neut # (Auto) 9.5 H (1.7-6.9) x10-3/uL Lymph # (Auto) 0.9 (0.5-4.5) x10-3/uL [place] # (Auto) 0.8 (0.0-1.2) x10-3/uL Eos # (Auto) 0.0 (0.0-0.6) x10-3/uL Baso # (Auto) 0.1 (0.0-0.3) x10-3/uL Sodium 137 (135-145) mmol/L Potassium 3.2 L (3.5-5.3) mmol/L Chloride 91 L (100-110) mmol/L Carbon Dioxide 31 (21-32) mmol/L BUN 30 H D (7-18) mg/dL Creatinine 1.1 (0.70-1.30) mg/dL Est Cr Clr Drug Dosing TNP Estimated GFR (MDRD) > 60 (>60) BUN/Creatinine Ratio 27.3 H (9-20) Glucose 135 H (80-116) mg/dL Calcium 9.7 (8.6-10.2) mg/dL Total Bilirubin 1.4 H (0.1-1.3) mg/dL AST 82 H D (5-25) IU/L ALT 54 H D (12-36) U/L Alkaline Phosphatase 107 (56-112) IU/L C-Reactive Protein (0.5-0.9) mg/dL Total Protein 8.0 (6.0-8.0) g/dL Albumin 3.5 (3.2-4.6) g/dL Globulin 4.5 g/dL Albumin/Globulin Ratio 0.8 Urine Color Yellow (YELLOW) Urine Appearance Cloudy (CLEAR) Urine pH 8.0 H (5.0-6.5) Ur Specific [place] 1.010 (1.010-1.025) Urine Protein 500 H (NEGATIVE) mg/dL Urine Glucose (UA) Normal (NORMAL) mg/dL Urine Ketones 15 H (NEGATIVE) mg/dL Urine Occult Blood Large H (NEGATIVE) Urine Nitrite Negative (NEGATIVE) Urine Bilirubin Negative (NEGATIVE) Urine Urobilinogen 1 H (NEGATIVE) mg/dL Ur Leukocyte Esterase Large H (NEGATIVE) Urine RBC 30-40 H (0-5) Urine WBC 75-100 H (0-5) Ur Squamous Epith Cells Few H (NS,R,O) Urine Bacteria Many H (NS) 03/21/21 Range/Units 07:00 WBC (3.2-10.1) x10-3/uL RBC (3.90-5.90) x10(6)uL Hgb (12.9-17.7) g/dL Hct (38.3-50.1) % MCV (80.8-98.7) fL MCH (27.0-33.3) pg MCHC (28.7-35.3) g/dL RDW (12.4-15.0) % Plt Count (117-477) x10(3)uL MPV (6.7-11.0) fL Neut % (Auto) (40.3-71.8) % Lymph % (Auto) (15.8-45.3) % [place] % (Auto) (5.5-15.2) % Eos % (Auto) (0.1-6.8) % Baso % (Auto) (0.3-3.8) % Neut # (Auto) (1.7-6.9) x10-3/uL Lymph # (Auto) (0.5-4.5) x10-3/uL [place] # (Auto) (0.0-1.2) x10-3/uL Eos # (Auto) (0.0-0.6) x10-3/uL Baso # (Auto) (0.0-0.3) x10-3/uL Sodium (135-145) mmol/L Potassium (3.5-5.3) mmol/L Chloride (100-110) mmol/L Carbon Dioxide (21-32) mmol/L BUN (7-18) mg/dL Creatinine (0.70-1.30) mg/dL Est Cr Clr Drug Dosing Estimated GFR (MDRD) (>60) BUN/Creatinine Ratio (9-20) Glucose (80-116) mg/dL Calcium (8.6-10.2) mg/dL Total Bilirubin (0.1-1.3) mg/dL AST (5-25) IU/L ALT (12-36) U/L Alkaline Phosphatase (56-112) IU/L C-Reactive Protein 2.6 H* (0.5-0.9) mg/dL Total Protein (6.0-8.0) g/dL Albumin (3.2-4.6) g/dL Globulin g/dL Albumin/Globulin Ratio Urine Color (YELLOW) Urine Appearance (CLEAR) Urine pH (5.0-6.5) Ur Specific Jackson (1.010-1.025) Urine Protein (NEGATIVE) mg/dL Urine Glucose (UA) (NORMAL) mg/dL Urine Ketones (NEGATIVE) mg/dL Urine Occult Blood (NEGATIVE) Urine Nitrite (NEGATIVE) Urine Bilirubin (NEGATIVE) Urine Urobilinogen (NEGATIVE) mg/dL Ur Leukocyte Esterase (NEGATIVE) Urine RBC (0-5) Urine WBC (0-5) Ur Squamous Epith Cells (NS,R,O) Urine Bacteria (NS) Meds: Medications Discontinued Medications Generic Name Dose Route Start Last Admin Trade Name Freq PRN Reason Stop Dose Admin Ceftriaxone Sodium 1 gm 03/21/21 08:30 03/21/21 08:32 Ceftriaxone 1 Gm Vial IVPUSH 1 gm Q24H SRAVAN Administration Sodium Chloride 1,000 mls @ 999 mls/hr 03/21/21 08:30 03/21/21 08:40 Normal Saline IV 999 mls/hr ASDIRECTED SRAVAN Administration Ketorolac Tromethamine 60 mg 03/21/21 06:40 03/21/21 07:56 Ketorolac 60 Mg/2 Ml Sdv IM 03/21/21 06:41 Not Given ONETIME ONE Ketorolac Tromethamine 30 mg 03/21/21 06:54 03/21/21 07:07 Ketorolac 30 Mg/Ml Sdv IM 03/21/21 06:55 30 mg ONETIME ONE Administration Metoclopramide HCl 10 mg 03/21/21 09:55 03/21/21 10:02 Metoclopramide 10 Mg/2 Ml Sdv IVPUSH 03/21/21 09:56 10 mg ONETIME ONE Administration Ondansetron HCl 4 mg 03/21/21 08:26 03/21/21 08:31 Ondansetron 4 Mg/2 Ml Sdv IVPUSH 03/21/21 08:27 4 mg ONETIME ONE Administration Potassium Chloride 40 meq 03/21/21 07:43 03/21/21 07:52 Potassium Chloride 20 Meq Tab.Er PO 03/21/21 07:44 40 meq ONETIME ONE Administration Sodium Chloride 10 ml 03/21/21 08:30 03/21/21 08:40 Sodium Chloride 0.9% 10 Ml Syringe FLUSH 10 ml ASDIRECTED PRN Administration Keep Vein Open - Re-Assessments/Exams Free Text/Narrative Re-Assessment/Exam: 03/21/21 06:54 suprapubic replaced with ANDRA Londono and myself, cloudy strong smelling urine drained into new leg bag, old cathether was discolored and stiff and may have been present well over a month, 240 ml by bladder scan before catheter changed 03/21/21 10:32 CT L and T spine with old compression fx's x 4, no new or acute findings evelyn noted a spiculated 10 mm lesion in superior right lung, this was d/w Dr Amador who pulled up a CT of lungs from 5y ago that showed the same lesion, only slightly smaller, Dr Amador recommended yearly screening lung CT for > 25 yr pack smoking hx, minimal change in current lung mass in past year pt sleeping now given 1 liter NS for his dehydration ate a small amount of bfast pain improved after meds altho not gone N resolved hx and PE and imaging c/w spasm of his lower back from having stepped into a hole MPMP with one fill in past yr for a limited dose of tramadol 50 mg pt had a Kleb UTI 11/15 sensitive to all, given a dose of ceftriaxone 1 gm IV here pt with extensive yellowing and nicotine staining on his R hand mild increase of CRP and WBC c/w UTI Departure - Departure Time of Disposition: 10:36 Disposition: Home, Self-Care 01 Condition: Good Clinical Impression: Spasm of back muscles, Low back strain, Hypokalemia, Urinary tract infection, Obstruction of suprapubic catheter, Right upper lobe pulmonary nodule - Discharge Information *PRESCRIPTION DRUG MONITORING PROGRAM REVIEWED*: Yes *COPY OF PRESCRIPTION DRUG MONITORING REPORT IN PATIENT LATESHA: No Prescriptions: Amoxicillin/Potassium Clav [Amox-Clav 500-125 mg Tablet] 1 each PO BID #10 tabl et traMADol [Ultram] 50 mg PO Q6H PRN #15 tab PRN Reason: Pain Instructions: Muscle Cramps and Spasms, Urinary Tract Infection, Adult, Pulmonary Nodule Referrals: Daniel Locke MD [Primary Care Provider] - Forms: ED Department Discharge Additional Instructions: For back spasm, take cyclobenzaprine 10 mg 1 tab up to 3 times a day as needed. For back pain, take acetaminophen 325 mg 2 tabs 4 times a day for 7 days. For back pain, take ibuprofen 200 mg 2 tabs 4 times a day for 7 days. For back pain, take tramadol 50 mg 1 tab every 6 hours as needed. No alcohol. For back pain, use ice for 10 minutes 4 times a day. For bladder infection, take amoxicillin/clavulanate 500/125 mg 1 tab 2 times a day for 5 days. Limit walking for the next 2 days. Rest. See your doctor in 3-4 days for further recommendations. You have a small nodule in your right upper lung that was present on CT scan of the lungs 5 years ago. With your smoking history and age, the radiologist recommended having a CT scan of the lungs once a year, which you should discuss with your doctor. Return to Emergency Department if you are feeling worse. Sepsis Event Note (ED) - Focused Exam Vital Signs: Vital Signs Temp Pulse Resp BP Pulse Ox 03/21/21 11:35 36.3 C 41 L 18 122/57 L 96 03/21/21 06:15 36.4 C 95 18 142/96 H 95 - My Orders Last 24 Hours: My Active Orders 03/21/21 06:55 Urinary Catheter Insertion [Insert Urinary Catheter] [OM.PC] ONETIME CULTURE URINE [RM] Stat 03/21/21 07:46 Lumbar Spine wo Cont [CT] Stat 03/21/21 08:30 Peripheral IV Insertion Adult [OM.PC] Routine - Assessment/Plan Last 24 Hours: My Active Orders 03/21/21 06:55 Urinary Catheter Insertion [Insert Urinary Catheter] [OM.PC] ONETIME CULTURE URINE [RM] Stat 03/21/21 07:46 Lumbar Spine wo Cont [CT] Stat 03/21/21 08:30 Peripheral IV Insertion Adult [OM.PC] Routine
[2021-03-21] MEDS ORDERED: Ketorolac 30 MG/ML SDV IM ONE (06:54)
[2021-03-21] MEDS ORDERED: Potassium Chloride 20 MEQ Tab.ER PO ONE (07:43)
[2021-03-21] MEDS ORDERED: Ondansetron 4 MG/2 ML SDV IVPUSH ONE (08:26)
[2021-03-21] MEDS ORDERED: Sodium Chloride 0.9% 1,000 ML IV SCH (08:30)
[2021-03-21] MEDS ORDERED: Sodium Chloride 0.9% 10 ML Syringe FLUSH PRN (08:30)
[2021-03-21] MEDS ORDERED: cefTRIAXone 1 GM Vial IVPUSH SCH (08:30)
[2021-03-21] MEDS ORDERED: Metoclopramide 10 MG/2 ML SDV IVPUSH ONE (09:55)
[2021-03-21 12:14] VITALS: BP 122/57; PULSE 41
--- NOTE | 2021-03-21 13:22 | CT ---
INDICATION: Pain. THORACIC SPINE: ADDENDUM: Frontal and lateral views of the thoracic spine dated 03/21/21, were compared with previous study of 11/29/[address] of the chest. Compared with the previous examination there is now noted a new compression fracture at T7 vertebral body, not present on the previous study of 2015 and appearing to show approximately 50% to 60% anterior vertebral body volume loss. A stable mild compression fracture is noted at T6. The fusion at the lower thoracic spine is stable. A somewhat spiculated nodular density in the right upper lobe posteriorly was present on the previous examination of the chest by CT on 11/29/15 with minimal interval change. Emphysematous changes appear to be similar to the previous examination. MTDD
== END 2021-03-21 11:35 | disposition home or self-care (01) ==
LOC: FB.ED 05:59
DX: S39.012A Strain of muscle, fascia and tendon of lower back, initial encounter (principal); E87.6 Hypokalemia; N39.0 Urinary tract infection, site not specified; T83.090A Other mechanical complication of cystostomy catheter, initial encounter; R91.1 Solitary pulmonary nodule; I48.91 Unspecified atrial fibrillation; I11.0 Hypertensive heart disease with heart failure; I50.9 Heart failure, unspecified; J44.9 Chronic obstructive pulmonary disease, unspecified; Z88.1 Allergy status to other antibiotic agents; Z88.8 Allergy status to other drugs, medicaments and biological substances; Z79.899 Other long term (current) drug therapy; X50.9XXA Other and unspecified overexertion or strenuous movements or postures, initial encounter
CPT/HCPCS: 36415; 51702; 72128; 72131; 80053; 81001; 85025; 86140; 87086; 87088; 87186; 96372; 96374; 96375; 99284-25; A9270-GY; J0696; J1885; J2405; J2765; J7030

== ENCOUNTER 2021-07-04 12:57 | Emergency (ER) | payer MEDICARE, MEDICAID ==
[2021-07-04] MEDS ORDERED: methylPREDNISolone Sodium Succinate 125 MG/2 ML SDV IM STA (13:29)
[2021-07-04] MEDS ORDERED: Albuterol/Ipratropium 3.0-0.5 MG/3 ML Neb Soln NEB STA (13:29)
[2021-07-04 14:07] VITALS: BP 121/72; PULSE 103
--- NOTE | 2021-07-04 14:49 | EDM.PDOC ---
ED HPI GENERAL MEDICAL PROBLEM - General Chief Complaint: Respiratory Problem Stated Complaint: bad cough,chills, etc Time Seen by Provider: 07/04/21 13:05 Source of Information: Reports: Patient History Limitations: Reports: No Limitations - History of Present Illness INITIAL COMMENTS - FREE TEXT/NARRATIVE: Patient presented to the ED from the [facility] because of chills, increasing dyspnea, productive cough for the past 4 days. He has a ahistory of COPD but still smokes 1 PPD. He used his inhaler without significant relief. back Pain Score (Numeric/FACES): 4 - Related Data Allergies Allergy/AdvReac Type Severity Reaction Status Date / Time ciprofloxacin Allergy Rash Verified 07/04/21 15:34 Pvinljz-Usw-Lxn Reductase AdvReac Other Verified 07/04/21 15:34 Inhibitor Home Meds: Home Meds Diltiazem [Dilacor XR] 240 mg PO DAILY #30 cap.er 04/25/18 [Rx] Furosemide [Lasix] 40 mg PO BIDDIURETIC #60 tablet 04/25/18 [Rx] Finasteride [Proscar] 5 mg PO DAILY 10/21/18 [History] Amoxicillin/Potassium Clav [Amox-Clav 500-125 mg Tablet] 1 each PO BID #10 tab let 03/21/21 [Rx] Cyclobenzaprine [Flexeril] 10 mg PO TID PRN 03/21/21 [History] Naproxen 500 mg PO ASDIRECTED PRN 03/21/21 [History] Potassium Chloride [Klor-Con M20] 40 meq PO ASDIRECTED 03/21/21 [History] traMADol [Ultram] 50 mg PO Q6H PRN #15 tab 03/21/21 [Rx] Azithromycin [Zithromax] 500 mg PO DAILY #5 tab 07/04/21 [Rx] predniSONE [Prednisone] 40 mg PO DAILY #10 tablet 07/04/21 [Rx] Past Medical History HEENT History: Reports: Impaired Vision Cardiovascular History: Reports: Afib, Heart Failure, Hypertension, Pulmonary Hypertension, PVD Other Cardiovascular History: History of tachycardia. Respiratory History: Reports: COPD, Pneumonia, Recurrent Other Respiratory History: Pulmonary hypertension. Pleural effusion. Gastrointestinal History: Reports: GI Bleed, PUD Other Gastrointestinal History: History of abdominal surgery, not sure why. History of GI and rectal bleeding. History of peptic upcer. Genitourinary History: Reports: Prostate Disorder, Pyelonephritis, Retention, Urinary, Urinary Incontinence, UTI, Recurrent, Other (See Below) Other Genitourinary History: Bladder diverticulum. Enlarged prostate with urinary obstruction. LUTS. Musculoskeletal History: Reports: Arthritis, Back Pain, Chronic, Osteoporosis Other Musculoskeletal History: Intraspinal abscess. Rib fractures. Neurological History: Reports: None Psychiatric History: Reports: Other (See Below) Other Psychiatric History: Nicotine dependence. Endocrine/Metabolic History: Reports: Osteoporosis Other Endocrine/Metabolic History: had in past Hematologic History: Reports: None Immunologic History: Reports: None Oncologic (Cancer) History: Reports: None Dermatologic History: Reports: Venous Stasis Dermatitis Other Dermatologic History: History of cellulitis of lower legs. - Infectious Disease History Infectious Disease History: Reports: Chicken Pox, Measles - Past Surgical History Head Surgeries/Procedures: Reports: None HEENT Surgical History: Reports: Oral Surgery Cardiovascular Surgical History: Reports: None Respiratory Surgical History: Reports: None GI Surgical History: Reports: Colonoscopy, Other (See Below) Other GI Surgeries/Procedures: Hx splenectomy at age 11. Male Surgical History: Reports: None Endocrine Surgical History: Reports: None Neurological Surgical History: Reports: Other (See Below) Other Neurological Surgeries/Procedures: see above, had back surgery Musculoskeletal Surgical History: Reports: Shoulder Surgery, Other (See Below) Other Musculoskeletal Surgeries/Procedures:: States he had surgery for osteomyelitis in back, has plates and screws, ribs removed. Oncologic Surgical History: Reports: None Dermatological Surgical History: Reports: None Social & Family History - Family History Family Medical History: No Pertinent Family History HEENT: Reports: Cataract, Impaired Vision Respiratory: Reports: Asthma Musculoskeletal: Reports: Arthritis Neurological: Reports: None - Tobacco Use Tobacco Use Status *Q: Current Every Day Tobacco User Years of Tobacco use: 50 Packs/Tins Daily: 1 Used Tobacco, but Quit: No Second Hand Smoke Exposure: No - Caffeine Use Caffeine Use: Reports: Coffee Other Caffeine Use: 10 cups a day of coffee. Caffeine Use Comment: 10 cups of coffee a day. - Recreational Drug Use Recreational Drug Use: No ED ROS GENERAL - Review of Systems Review Of Systems: See Below Constitutional: Reports: Chills HEENT: Reports: No Symptoms Respiratory: Reports: Shortness of Breath, Wheezing, Cough, Sputum Cardiovascular: Reports: No Symptoms Endocrine: Reports: No Symptoms GI/Abdominal: Reports: No Symptoms : Reports: No Symptoms Musculoskeletal: Reports: No Symptoms Skin: Reports: No Symptoms Neurological: Reports: No Symptoms Psychiatric: Reports: No Symptoms ED EXAM, GENERAL - Physical Exam Exam: See Below Exam Limited By: No Limitations General Appearance: Alert, No Apparent Distress Ears: Normal External Exam, Normal Canal Nose: Normal Inspection, Normal Mucosa, No Blood Throat/Mouth: Normal Inspection, Normal Lips, Normal Teeth Head: Atraumatic, Normocephalic Neck: Normal Inspection, Supple, Non-Tender, Full Range of Motion Respiratory/Chest: No Respiratory Distress, Lungs Clear, Decreased Breath Sounds, Rhonchi, Wheezing Cardiovascular: Normal Peripheral Pulses, Regular Rate, Rhythm, No Edema, No Gallop, No JVD, No Murmur GI/Abdominal: Normal Bowel Sounds, Soft, Non-Tender, No Organomegaly Back Exam: Normal Inspection, Full Range of Motion Extremities: Normal Inspection, Normal Range of Motion, Non-Tender, No Pedal Edema, Normal Capillary Refill Neurological: Alert, Oriented, CN II-XII Intact, Normal Cognition Course - Vital Signs Text/Narrative:: CXR-see result, reviewed with patient Solumedrol 125 mg IM x1 Duoneb x 1 Covid test-negative Last Recorded V/S: Last Vital Signs Temp 36.9 C 07/04/21 13:00 Pulse 103 H 07/04/21 13:00 Resp 20 07/04/21 13:00 BP 121/72 07/04/21 13:00 Pulse Ox 91 L 07/04/21 13:00 - Orders/Labs/Meds Labs: Laboratory Tests 07/04/21 Range/Units 14:16 SARS-CoV-2 RNA (RORO) Negative (NEGATIVE) Meds: Medications Discontinued Medications Generic Name Dose Route Start Last Admin Trade Name Freq PRN Reason Stop Dose Admin Albuterol/Ipratropium 3 ml 07/04/21 13:29 07/04/21 13:43 Albuterol/Ipratropium 3.0-0.5 Mg/3 Ml Neb Soln NEB 07/04/21 13:30 3 ml NOW STA Administration Methylprednisolone Sodium Succinate 125 mg 07/04/21 13:29 07/04/21 13:43 Methylprednisolone Sodium Succinate 125 Mg/2 Ml Sdv IM 07/04/21 13:30 125 mg NOW STA Administration Departure - Departure Time of Disposition: 15:20 Disposition: Home, Self-Care 01 Condition: Good Clinical Impression: COPD exacerbation - Discharge Information Prescriptions: predniSONE [Prednisone] 40 mg PO DAILY #10 tablet Azithromycin [Zithromax] 500 mg PO DAILY #5 tab Instructions: Chronic Obstructive Pulmonary Disease Exacerbation, [id number] Referrals: Allyson Alejandro [employer]UC[employer] LOGGING ENGINEER [Primary Care Provider] - Forms: ED Department Discharge Additional Instructions: Please read discharge instructions on COPD exacerbation Try to smoke less cigarettes while being treated Zithromax 500 mg daily for 5 days starting today Prednisone 40 mg daily for 5 days starting today Nebulizer treatment every 6 hours for 3 days then as needed Follow up as needed Sepsis Event Note (ED) - Evaluation Sepsis Screening Result: No Definite Risk
--- NOTE | 2021-07-04 16:38 | CR ---
CHEST ONE VIEW INDICATION: Dyspnea, history of COPD. AP upright portable view of the chest was obtained 07/04/21 and compared with 11/02/20 and 09/15/20. Fusion lower thoracic spine again noted appears unchanged. The heart did not appear grossly enlarged allowing for the poor inspiration. The aorta is tortuous with calcification in the arch and descending portion. A definite active infiltrate or effusion was not identified on the current study, although there does appear to be some lateral pleural thickening at the lower lung field on the left, this may be on the basis of posttraumatic change with healed rib fractures in that area. Lungs appear to be somewhat hyperaerated raising the question of COPD. IMPRESSION: No acute process. MTDD
== END 2021-07-04 15:20 | disposition home or self-care (01) ==
LOC: FB.ED 12:57
DX: J44.1 Chronic obstructive pulmonary disease with (acute) exacerbation (principal); I10 Essential (primary) hypertension; F17.210 Nicotine dependence, cigarettes, uncomplicated; Z88.8 Allergy status to other drugs, medicaments and biological substances; Z20.822 Contact with and (suspected) exposure to COVID-19; Z79.899 Other long term (current) drug therapy; Z88.1 Allergy status to other antibiotic agents
CPT/HCPCS: 71045; 94640; 96372; 99285; J2930; U0002; J7620-GY

== ENCOUNTER 2021-09-12 08:07 | Emergency (ER) | payer MEDICARE, MEDICAID ==
--- NOTE | 2021-09-12 08:47 | EDM.PDOC ---
ED HPI GENERAL MEDICAL PROBLEM - General Chief Complaint: Lower Extremity Injury/Pain Stated Complaint: FALL Time Seen by Provider: 09/12/21 08:20 Source of Information: Reports: Patient History Limitations: Reports: Other (pt with limited health hx) - History of Present Illness INITIAL COMMENTS - FREE TEXT/NARRATIVE: c/o fall smokes >1 ppd, no recent alcohol until last night when a friend made him 2 strong drinks, he fell yesterday evening walking across his kitchen, was alone at the time, does not think he had LOC, no GRANT, no neck pain had pain in L shoulder and L hip, pain better when he woke up at 7a, had some malaise, no n/v, thought he should come to ED, he walked across street and a neighbor called EMS he has a h/o afib, HR 140 and afib on arrival to ED, he does not think he is taking any meds for afib other than a blood thinner BP 120/80 here has had COVID vax x 2 in spring does not use HFAs altho does have dx of COPD PMH: as per chart Left Hip Pain Score (Numeric/FACES): 4 - Related Data Allergies Allergy/AdvReac Type Severity Reaction Status Date / Time ciprofloxacin Allergy Rash Verified 07/04/21 15:34 [id number]-LeA Reductase AdvReac Other Verified 07/04/21 15:34 Inhibitor [Mxmaikl-Byy-Gxq Reductase Inhibitor] Home Meds: Home Meds Diltiazem [Dilacor XR] 240 mg PO DAILY #30 cap.er 04/25/18 [Rx] Finasteride [Proscar] 5 mg PO DAILY 10/21/18 [History] Potassium Chloride [Klor-Con M20] 40 meq PO ASDIRECTED 03/21/21 [History] Furosemide [Lasix] 40 mg PO BID 09/12/21 [History] Warfarin Sodium [Jantoven] 2.5 mg PO DAILY 09/12/21 [History] Past Medical History HEENT History: Reports: Impaired Vision Cardiovascular History: Reports: Afib, Heart Failure, Hypertension, Pulmonary Hypertension, PVD Other Cardiovascular History: History of tachycardia. Respiratory History: Reports: COPD, Pneumonia, Recurrent Other Respiratory History: Pulmonary hypertension. Pleural effusion. Gastrointestinal History: Reports: GI Bleed, PUD Other Gastrointestinal History: History of abdominal surgery, not sure why. History of GI and rectal bleeding. History of peptic upcer. Genitourinary History: Reports: Prostate Disorder, Pyelonephritis, Retention, Urinary, Urinary Incontinence, UTI, Recurrent, Other (See Below) Other Genitourinary History: Bladder diverticulum. Enlarged prostate with urinary obstruction. LUTS. Musculoskeletal History: Reports: Arthritis, Back Pain, Chronic, Osteoporosis Other Musculoskeletal History: Intraspinal abscess. Rib fractures. Neurological History: Reports: None Psychiatric History: Reports: Other (See Below) Other Psychiatric History: Nicotine dependence. Endocrine/Metabolic History: Reports: Osteoporosis Other Endocrine/Metabolic History: had in past Hematologic History: Reports: None Immunologic History: Reports: None Oncologic (Cancer) History: Reports: None Dermatologic History: Reports: Venous Stasis Dermatitis Other Dermatologic History: History of cellulitis of lower legs. - Infectious Disease History Infectious Disease History: Reports: Chicken Pox, Measles - Past Surgical History Head Surgeries/Procedures: Reports: None HEENT Surgical History: Reports: Oral Surgery Cardiovascular Surgical History: Reports: None Respiratory Surgical History: Reports: None GI Surgical History: Reports: Colonoscopy, Other (See Below) Other GI Surgeries/Procedures: Hx splenectomy at age 11. Male Surgical History: Reports: None Endocrine Surgical History: Reports: None Neurological Surgical History: Reports: Other (See Below) Other Neurological Surgeries/Procedures: see above, had back surgery Musculoskeletal Surgical History: Reports: Shoulder Surgery, Other (See Below) Other Musculoskeletal Surgeries/Procedures:: States he had surgery for osteomyelitis in back, has plates and screws, ribs removed. Oncologic Surgical History: Reports: None Dermatological Surgical History: Reports: None Social & Family History - Family History Family Medical History: No Pertinent Family History HEENT: Reports: Cataract, Impaired Vision Respiratory: Reports: Asthma Musculoskeletal: Reports: Arthritis Neurological: Reports: None - Tobacco Use Tobacco Use Status *Q: Current Every Day Tobacco User Years of Tobacco use: 50 Packs/Tins Daily: 1 - Caffeine Use Caffeine Use: Reports: Coffee Other Caffeine Use: 10 cups a day of coffee. Caffeine Use Comment: 10 cups of coffee a day. - Recreational Drug Use Recreational Drug Use: No Review of Systems - Review of Systems Review Of Systems: See Below Constitutional: Reports: Weakness. Denies: Chills, Diaphoresis, Fever Eyes: Reports: No Symptoms Ears: Reports: No Symptoms Nose: Reports: No Symptoms Mouth/Throat: Reports: No Symptoms Respiratory: Reports: No Symptoms. Denies: Shortness of Breath Cardiovascular: Reports: No Symptoms. Denies: Chest Pain GI/Abdominal: Reports: No Symptoms Genitourinary: Reports: No Symptoms Musculoskeletal: Reports: Shoulder Pain, Other (hip pain) Skin: Reports: No Symptoms Neurological: Reports: No Symptoms Psychiatric: Reports: No Symptoms ED EXAM, GENERAL - Physical Exam Exam: See Below Exam Limited By: No Limitations General Appearance: Alert, WD/WN, No Apparent Distress, Other (alert, conversant, nonill, dark nicotine stains on fingers of right hand) Eye Exam: Bilateral Eye: EOMI, PERRL Ears: Hearing Grossly Normal Nose: Normal Inspection Throat/Mouth: Normal Inspection, Normal Voice, No Airway Compromise Head: Atraumatic, Normocephalic Neck: Normal Inspection, Supple, Non-Tender, Full Range of Motion. No: Lymphadenopathy (R), Lymphadenopathy (L) Respiratory/Chest: No Respiratory Distress, Lungs Clear, Normal Breath Sounds, No Accessory Muscle Use Cardiovascular: Tachycardia, Irregularly Irregular, Other (2/6 EDINSON at [facility], quiet precordium) GI/Abdominal: Soft, Non-Tender, No Distention Back Exam: Normal Inspection, Full Range of Motion. No: CVA Tenderness (R), CVA Tenderness (L) Extremities: Normal Inspection, Normal Range of Motion, Non-Tender, No Pedal Edema Neurological: Alert, Oriented, CN II-XII Intact, Normal Cognition, No Motor/Sensory Deficits Psychiatric: Normal Affect, Normal Mood Skin Exam: Warm, Dry, Intact, Normal Color, No Rash, Other (mild dec'd turgor UEs) Lymphatic: No Adenopathy Course - Vital Signs Last Recorded V/S: Last Vital Signs Temp 35.8 C L 09/12/21 08:38 Pulse 113 H 09/12/21 10:52 Resp 18 09/12/21 10:04 BP 129/79 09/12/21 10:52 Pulse Ox 91 L 09/12/21 10:04 - Orders/Labs/Meds Orders: Active Orders 24 hr Category Date Time Status UA W/MICROSCOPIC [URIN] Stat Lab 09/12/21 08:38 Ordered EKG 12 Lead [EK] Routine Ther 09/12/21 08:38 Ordered Labs: Laboratory Tests 09/12/21 09/12/21 09/12/21 Range/Units 09:20 09:20 09:20 WBC 11.2 H (3.2-10.1) x10-3/uL RBC 5.12 (3.90-5.90) x10(6)uL Hgb 14.4 (12.9-17.7) g/dL Hct 45.5 (38.3-50.1) % MCV 88.9 (80.8-98.7) fL MCH 28.2 (27.0-33.3) pg MCHC 31.7 (28.7-35.3) g/dL RDW 17.5 H (12.4-15.0) % Plt Count 87 L (117-477) x10(3)uL MPV 11.3 H (6.7-11.0) fL Neut % (Auto) 84.6 H (40.3-71.8) % Lymph % (Auto) 8.8 L (15.8-45.3) % [place] % (Auto) 5.5 (5.5-15.2) % Eos % (Auto) 0.2 (0.1-6.8) % Baso % (Auto) 0.9 (0.3-3.8) % Neut # (Auto) 9.5 H (1.7-6.9) x10-3/uL Lymph # (Auto) 1.0 (0.5-4.5) x10-3/uL [place] # (Auto) 0.6 (0.0-1.2) x10-3/uL Eos # (Auto) 0.0 (0.0-0.6) x10-3/uL Baso # (Auto) 0.1 (0.0-0.3) x10-3/uL Sodium 140 (135-145) mmol/L Potassium 4.2 D (3.5-5.3) mmol/L Chloride 95 L (100-110) mmol/L Carbon Dioxide 25 (21-32) mmol/L BUN 32 H (7-18) mg/dL Creatinine 1.3 (0.70-1.30) mg/dL Est Cr Clr Drug Dosing 44.31 mL/min Estimated GFR (MDRD) 54 L (>60) BUN/Creatinine Ratio 24.6 H (9-20) Glucose 76 L (80-116) mg/dL Calcium 9.0 (8.6-10.2) mg/dL Magnesium 1.9 (1.8-2.5) mg/dL Total Bilirubin 1.2 (0.1-1.3) mg/dL AST 164 H* D (5-25) IU/L ALT 108 H D (12-36) U/L Alkaline Phosphatase 102 (56-112) IU/L Troponin I 60.3 (4.0-60.3) pg/mL C-Reactive Protein < 0.2 L (0.5-0.9) mg/dL Total Protein 7.8 (6.0-8.0) g/dL Albumin 3.9 (3.2-4.6) g/dL Globulin 3.9 g/dL Albumin/Globulin Ratio 1.0 // Range/Units 11:33 WBC (3.2-10.1) x10-3/uL RBC (3.90-5.90) x10(6)uL Hgb (12.9-17.7) g/dL Hct (38.3-50.1) % MCV (80.8-98.7) fL MCH (27.0-33.3) pg MCHC (28.7-35.3) g/dL RDW (12.4-15.0) % Plt Count (117-477) x10(3)uL MPV (6.7-11.0) fL Neut % (Auto) (40.3-71.8) % Lymph % (Auto) (15.8-45.3) % [place] % (Auto) (5.5-15.2) % Eos % (Auto) (0.1-6.8) % Baso % (Auto) (0.3-3.8) % Neut # (Auto) (1.7-6.9) x10-3/uL Lymph # (Auto) (0.5-4.5) x10-3/uL [place] # (Auto) (0.0-1.2) x10-3/uL Eos # (Auto) (0.0-0.6) x10-3/uL Baso # (Auto) (0.0-0.3) x10-3/uL Sodium (135-145) mmol/L Potassium (3.5-5.3) mmol/L Chloride (100-110) mmol/L Carbon Dioxide (21-32) mmol/L BUN (7-18) mg/dL Creatinine (0.70-1.30) mg/dL Est Cr Clr Drug Dosing mL/min Estimated GFR (MDRD) (>60) BUN/Creatinine Ratio (9-20) Glucose (80-116) mg/dL Calcium (8.6-10.2) mg/dL Magnesium (1.8-2.5) mg/dL Total Bilirubin (0.1-1.3) mg/dL AST (5-25) IU/L ALT (12-36) U/L Alkaline Phosphatase (56-112) IU/L Troponin I 57.0 (4.0-60.3) pg/mL C-Reactive Protein (0.5-0.9) mg/dL Total Protein (6.0-8.0) g/dL Albumin (3.2-4.6) g/dL Globulin g/dL Albumin/Globulin Ratio Meds: Medications Discontinued Medications Generic Name Dose Route Start Last Admin Trade Name Freq PRN Reason Stop Dose Admin Diltiazem HCl 120 mg 09/12/21 09:56 09/12/21 10:56 Diltiazem 120 Mg Cap.Cd PO 09/12/21 09:57 Not Given ONETIME ONE Diltiazem HCl 20 mg 09/12/21 09:59 09/12/21 10:57 Diltiazem 25 Mg/5 Ml Sdv IVPUSH 09/12/21 10:00 Not Given ONETIME ONE Diltiazem HCl 120 mg 09/12/21 10:45 09/12/21 10:52 Diltiazem 120 Mg Cap.Cd PO 09/12/21 10:46 120 mg ONETIME ONE Administration - Re-Assessments/Exams Free Text/Narrative Re-Assessment/Exam: 09/12/21 12:16 repeat trop is neg RN and anesthesia unable to start IV to give IV dilt, given 120 mg dilt PO pt appears to have missed doses of his home dilt 240 mg/d, HR did improve to low 100s after dilt here after resting and IVF pt sitting up and much more alert and talkative, no cp or other c/w pt declined imaging of his L shoulder and hip while pt admits to only rare alcohol, this is likely not true does have inc'd LFTs, higher than previously, c/w alcoholic hepatitis, RUQ is nontender K and Mg are both wnl oxygenation is 91-92% when sensor is reading more accurately (nicotine stains and grime affect readings) Departure - Departure Time of Disposition: 09:57 Disposition: Home, Self-Care 01 Condition: Good Clinical Impression: Contusion of left shoulder, Contusion of left hip, Atrial fibrillation with RVR, Dehydration, Elevated liver function tests, Acute on chronic renal insufficiency - Discharge Information *PRESCRIPTION DRUG MONITORING PROGRAM REVIEWED*: Not Applicable *COPY OF PRESCRIPTION DRUG MONITORING REPORT IN PATIENT LATESHA: Not Applicable Instructions: Contusion Referrals: Allyson Alejandro NP [Primary Care Provider] - Forms: ED Department Discharge Additional Instructions: For soreness of shoulder and hip, take acetaminophen 325 mg 2 tabs 4 times a day for 2 days, longer if needed. For soreness of shoulder and hip, use ice for 10 minutes every 2 hours today and tomorrow. Take your regular medications when you get home, including today's dose of diltiazem 240 mg. Maintain food and fluids. No alcohol. See your doctor in 2 days for further evaluation and recommendations. Sepsis Event Note (ED) - Focused Exam Vital Signs: Vital Signs Temp Pulse Pulse Resp BP BP Pulse Ox 09/12/21 10:52 113 H 129/79 09/12/21 10:04 134 H 18 135/88 91 L 09/12/21 08:58 133 H 22 H 137/93 H 91 L 09/12/21 08:38 35.8 C L 137 H 16 121/80 93 L - My Orders Last 24 Hours: My Active Orders 09/12/21 08:38 UA W/MICROSCOPIC [URIN] Stat EKG 12 Lead [EK] Routine - Assessment/Plan Last 24 Hours: My Active Orders 09/12/21 08:38 UA W/MICROSCOPIC [URIN] Stat EKG 12 Lead [EK] Routine
[2021-09-12] MEDS ORDERED: Diltiazem 120 MG Cap.CD PO ONE ×2 (09:56→10:45)
[2021-09-12] MEDS ORDERED: Diltiazem 25 MG/5 ML SDV IVPUSH ONE (09:59)
[2021-09-12 10:55] VITALS: BP 129/79; PULSE 113
== END 2021-09-12 13:16 | disposition home or self-care (01) ==
LOC: FB.ED 08:07
DX: S40.012A Contusion of left shoulder, initial encounter (principal); S70.02XA Contusion of left hip, initial encounter; I48.91 Unspecified atrial fibrillation; E86.0 Dehydration; R79.89 Other specified abnormal findings of blood chemistry; I13.0 Hypertensive heart and chronic kidney disease with heart failure and stage 1 through stage 4 chronic kidney disease, or unspecified chronic kidney disease; J44.9 Chronic obstructive pulmonary disease, unspecified; I50.9 Heart failure, unspecified; N18.9 Chronic kidney disease, unspecified; Z72.0 Tobacco use; Z88.1 Allergy status to other antibiotic agents; W19.XXXA Unspecified fall, initial encounter; Y93.9 Activity, unspecified; Y92.000 Kitchen of unspecified non-institutional (private) residence as the place of occurrence of the external cause
CPT/HCPCS: 36415; 80053; 83735; 84484; 85025; 86140; 93005; 99284-25; A9270-GY

== ENCOUNTER 2022-04-30 05:35 | Emergency (ER) | payer MEDICARE, MEDICAID ==
[2022-05-01 09:15] VITALS: BP 167/95; PULSE 81
== END 2022-04-30 07:00 | disposition home or self-care (01) ==
LOC: FB.ED 05:35
DX: T83.518A Infection and inflammatory reaction due to other urinary catheter, initial encounter (principal); I10 Essential (primary) hypertension; J44.9 Chronic obstructive pulmonary disease, unspecified; Z88.1 Allergy status to other antibiotic agents; Z88.8 Allergy status to other drugs, medicaments and biological substances; Z79.899 Other long term (current) drug therapy; Z79.01 Long term (current) use of anticoagulants
CPT/HCPCS: 51705; 99282; 99283-25

== ENCOUNTER 2022-07-01 18:23 | Emergency (ER) | payer MEDICARE, MEDICAID ==
[2022-07-01 18:38] VITALS: BP 128/78; PULSE 78
[2022-07-01] MEDS: Diphtheria,Pertussis(Acell),Tetanus Vaccine 0.5 ML Syringe IM ONE (18:51)
== END 2022-07-01 18:57 | disposition home or self-care (01) ==
LOC: FB.ED 18:23
DX: S61.411A Laceration without foreign body of right hand, initial encounter (principal); I48.91 Unspecified atrial fibrillation; I11.0 Hypertensive heart disease with heart failure; I50.9 Heart failure, unspecified; J44.9 Chronic obstructive pulmonary disease, unspecified; Z88.1 Allergy status to other antibiotic agents; Z88.8 Allergy status to other drugs, medicaments and biological substances; Z23 Encounter for immunization; Z79.01 Long term (current) use of anticoagulants; W26.8XXA Contact with other sharp object(s), not elsewhere classified, initial encounter; Y99.0 Civilian activity done for income or pay; Y92.009 Unspecified place in unspecified non-institutional (private) residence as the place of occurrence of the external cause
CPT/HCPCS: 12001; 90471; 90715; 99281; 99282-25

== ENCOUNTER 2022-09-02 11:56 | Emergency (ER) | payer MEDICARE, MEDICAID | END 2022-09-02 13:20 | disposition left against medical advice (07) | LOC: FB.ED 11:56 | DX: T83.098A Other mechanical complication of other urinary catheter, initial encounter (principal); I11.0 Hypertensive heart disease with heart failure; I50.9 Heart failure, unspecified; J44.9 Chronic obstructive pulmonary disease, unspecified; Z88.1 Allergy status to other antibiotic agents; Z88.6 Allergy status to analgesic agent; Z79.899 Other long term (current) drug therapy | CPT/HCPCS: 99281; 99283 ==

== ENCOUNTER 2023-03-09 22:06 | Emergency (ER) | payer MEDICARE, MEDICAID ==
[2023-03-09] MEDS ORDERED: Lidocaine 2% HCl 6 ML Jel ONE ×2 (22:27→22:30)
[2023-03-09] MEDS ORDERED: Lidocaine 2% HCl 6 ML Jel MM STA (22:29)
[2023-03-10 00:17] VITALS: BP 154/85; PULSE 107
[2023-03-10] MEDS ORDERED: Lidocaine 2% HCl 6 ML Jel SCH (01:00)
== END 2023-03-09 22:30 | disposition home or self-care (01) ==
LOC: FB.ED 22:06
DX: T83.098A Other mechanical complication of other urinary catheter, initial encounter (principal); R33.9 Retention of urine, unspecified; I48.91 Unspecified atrial fibrillation; I11.0 Hypertensive heart disease with heart failure; I50.9 Heart failure, unspecified; J44.9 Chronic obstructive pulmonary disease, unspecified; Z88.1 Allergy status to other antibiotic agents; Z88.8 Allergy status to other drugs, medicaments and biological substances; Z79.01 Long term (current) use of anticoagulants
CPT/HCPCS: 51702; 99283; A9270-GY

== ENCOUNTER 2023-04-18 02:41 | Emergency (ER) | payer MEDICARE, MEDICAID ==
[2023-04-18 03:14] VITALS: BP 152/80; PULSE 94
== END 2023-04-18 03:21 | disposition home or self-care (01) ==
LOC: FB.ED 02:41
DX: T83.090A Other mechanical complication of cystostomy catheter, initial encounter (principal); I48.91 Unspecified atrial fibrillation; I11.0 Hypertensive heart disease with heart failure; I50.9 Heart failure, unspecified; J44.9 Chronic obstructive pulmonary disease, unspecified; M19.90 Unspecified osteoarthritis, unspecified site; Z88.1 Allergy status to other antibiotic agents; Z88.8 Allergy status to other drugs, medicaments and biological substances; Z79.899 Other long term (current) drug therapy
CPT/HCPCS: 51702; 51705; 99282; 99283

== ENCOUNTER 2023-12-29 07:49 | Emergency (ER) | payer MEDICARE, MEDICAID ==
[2023-12-29 08:45] LABS: BILIRUBIN,URINE NEGATIVE (NEGATIVE); GLUCOSE,URINE NORMAL (NORMAL); KETONES,URINE NEGATIVE (NEGATIVE); LEUKOCYTE ESTERASE,URINE LARGE (NEGATIVE); NITRITE,URINE NEGATIVE (NEGATIVE); OCCULT BLOOD,URINE MODERATE (NEGATIVE); PROTEIN,URINE TRACE mg/dL (NEGATIVE); UROBILINOGEN,URINE NORMAL (NEGATIVE)
[2023-12-29 08:46] LABS: APPEARANCE,URINE CLOUDY (CLEAR); COLOR,URINE YELLOW (YELLOW)
[2023-12-29 08:47] LABS: BACTERIA,URINE MANY (NS); RBC,URINE 0-5 (0-5); SQUAMOUS EPITHELIAL CELLS,UR FEW (NS,R,O); WBC,URINE 20-30 (0-5)
[2023-12-29 09:06] VITALS: BP 131/79; PULSE 105
== END 2023-12-29 09:15 | disposition home or self-care (01) ==
LOC: FB.ED 07:49
DX: T83.091A Other mechanical complication of indwelling urethral catheter, initial encounter (principal); N39.0 Urinary tract infection, site not specified; I11.0 Hypertensive heart disease with heart failure; I50.9 Heart failure, unspecified; J44.9 Chronic obstructive pulmonary disease, unspecified; F17.210 Nicotine dependence, cigarettes, uncomplicated; Z79.01 Long term (current) use of anticoagulants; Z88.1 Allergy status to other antibiotic agents; Z88.8 Allergy status to other drugs, medicaments and biological substances; Z79.899 Other long term (current) drug therapy
CPT/HCPCS: 51705; 81001; 87086; 87088; 87186; 99283

== ENCOUNTER 2024-02-17 14:43 | Emergency (ER) | payer MEDICARE, MEDICAID ==
[2024-02-17 20:29] VITALS: BP 162/63; PULSE 82
== END 2024-02-17 16:15 | disposition home or self-care (01) ==
LOC: FB.ED 14:43
DX: T83.010A Breakdown (mechanical) of cystostomy catheter, initial encounter (principal); I48.91 Unspecified atrial fibrillation; I11.0 Hypertensive heart disease with heart failure; I50.9 Heart failure, unspecified; J44.9 Chronic obstructive pulmonary disease, unspecified; F17.200 Nicotine dependence, unspecified, uncomplicated; Z88.1 Allergy status to other antibiotic agents; Z88.8 Allergy status to other drugs, medicaments and biological substances; Z79.01 Long term (current) use of anticoagulants; Z79.899 Other long term (current) drug therapy; Z86.19 Personal history of other infectious and parasitic diseases; Y73.8 Miscellaneous gastroenterology and urology devices associated with adverse incidents, not elsewhere classified
CPT/HCPCS: 51705; 99283

== ENCOUNTER 2024-03-08 19:25 | Emergency (ER) | payer MEDICARE, MEDICAID ==
[2024-03-08] MEDS ORDERED: Potassium Chloride 10 MEQ Tab.ER PO ONE (19:26)
[2024-03-08 19:59] VITALS: BP 124/76; PULSE 93
[2024-03-08] MEDS ORDERED: Sodium Chloride 0.9% 10 ML Syringe FLUSH PRN (20:11)
[2024-03-08 20:39] LABS: BASOPHILS ABSOLUTE AUTO 0.1 x10-3/uL (0.0-0.3); RED CELL DISTRIBUTION WIDTH 14.1 % (12.4-15.0)
[2024-03-08 20:42] LABS: BLOOD UREA NITROGEN,BUN 38 mg/dL (7-18); BUN/CREATININE RATIO 31.7 (9-20); CALCIUM 9.5 mg/dL (8.6-10.2); CARBON DIOXIDE,CO2 34 mmol/L (21-32); CHLORIDE,CL 99 mmol/L (100-110); CREATININE 1.2 mg/dL (0.70-1.30); EST CRCL DRUG DOSING (CG) 46.52 mL/min; ESTIMATED GFR 62 mL/min (>60); GLUCOSE RANDOM 107 mg/dL (80-116); SODIUM,NA 140 mmol/L (135-145)
[2024-03-08 20:48] LABS: A/G RATIO 0.9; ALANINE AMINOTRANSFERASE,ALT 30 U/L (12-36); ALKALINE PHOSPHATASE 89 IU/L (56-112); ASPARTATE AMNIOTRANSFERASE,AST 33 IU/L (5-25); BILIRUBIN TOTAL 0.6 mg/dL (0.1-1.3); PROTEIN TOTAL,TP 8.5 g/dL (6.0-8.0)
[2024-03-08 20:54] LABS: LACTIC ACID 1.8 mmol/L (0.4-2.0)
[2024-03-08 21:09] LABS: BASOPHILS PERCENT AUTO 1.1 % (0.3-3.8); EOSINOPHILS ABSOLUTE AUTO 0.2 x10-3/uL (0.0-0.6); EOSINOPHILS PERCENT AUTO 1.8 % (0.1-6.8); HEMATOCRIT 46.1 % (38.3-50.1); HEMOGLOBIN 15.1 g/dL (12.9-17.7); LYMPHOCYTES ABSOLUTE AUTO 2.3 x10-3/uL (0.5-4.5); LYMPHOCYTES PERCENT AUTO 19.6 % (15.8-45.3); MEAN CORPUSCULAR HEMOGLOBIN 30.2 pg (27.0-33.3); MEAN CORPUSCULAR HGB CONC 32.8 g/dL (28.7-35.3); MEAN CORPUSCULAR VOLUME 91.9 fL (80.8-98.7); MEAN PLATELET VOLUME 14.3 fL (6.7-11.0); MONOCYTES ABSOLUTE AUTO 0.8 x10-3/uL (0.0-1.2); MONOCYTES PERCENT AUTO 7.1 % (5.5-15.2); NEUTROPHILS ABSOLUTE AUTO 8.2 x10-3/uL (1.7-6.9); NEUTROPHILS PERCENT AUTO 70.4 % (40.3-71.8); RED BLOOD CELL COUNT 5.02 x10(6)uL (3.90-5.90); WHITE BLOOD CELL COUNT,WBC 11.6 x10-3/uL (3.2-10.1)
[2024-03-08 21:12] LABS: PLATELET COUNT,PLT 97 x10(3)uL (117-477)
[2024-03-08] MEDS: Ciprofloxacin in D5W 400 MG in Premix Bag 1 BAG IV STA (21:19)
[2024-03-08 21:21] LABS: BILIRUBIN,URINE NEGATIVE (NEGATIVE); GLUCOSE,URINE NORMAL (NORMAL); KETONES,URINE NEGATIVE (NEGATIVE); LEUKOCYTE ESTERASE,URINE LARGE (NEGATIVE); NITRITE,URINE NEGATIVE (NEGATIVE); OCCULT BLOOD,URINE LARGE (NEGATIVE); PROTEIN,URINE 30 mg/dL (NEGATIVE); UROBILINOGEN,URINE NORMAL (NEGATIVE)
[2024-03-08 21:24] LABS: APPEARANCE,URINE CLOUDY (CLEAR); BACTERIA,URINE MANY (NS); COLOR,URINE YELLOW (YELLOW); SQUAMOUS EPITHELIAL CELLS,UR FEW (NS,R,O)
== END 2024-03-08 22:18 | disposition home or self-care (01) ==
LOC: FB.ED 19:25
DX: N39.0 Urinary tract infection, site not specified (principal); E87.6 Hypokalemia; I11.0 Hypertensive heart disease with heart failure; I50.9 Heart failure, unspecified; J44.9 Chronic obstructive pulmonary disease, unspecified; Z79.899 Other long term (current) drug therapy; Z79.01 Long term (current) use of anticoagulants; Z88.8 Allergy status to other drugs, medicaments and biological substances
CPT/HCPCS: 36415; 80053; 81001; 83605; 85025; 86140; 87040; 87086; 87088; 87186; 96365; 99283; A9270; J0744

== ENCOUNTER 2024-05-19 17:55 | Emergency (ER) | payer MEDICARE, MEDICAID ==
[2024-05-19 18:25] VITALS: BP 125/73; PULSE 114
[2024-05-19 18:37] LABS: BILIRUBIN,URINE NEGATIVE (NEGATIVE); GLUCOSE,URINE NORMAL (NORMAL); KETONES,URINE NEGATIVE (NEGATIVE); LEUKOCYTE ESTERASE,URINE LARGE (NEGATIVE); NITRITE,URINE POSITIVE (NEGATIVE); OCCULT BLOOD,URINE LARGE (NEGATIVE); PROTEIN,URINE 500 mg/dL (NEGATIVE); UROBILINOGEN,URINE NORMAL (NEGATIVE)
[2024-05-19 18:39] LABS: APPEARANCE,URINE CLOUDY (CLEAR); COLOR,URINE YELLOW (YELLOW)
[2024-05-19 19:01] LABS: BACTERIA,URINE MANY (NS); SQUAMOUS EPITHELIAL CELLS,UR OCCASIONAL (NS,R,O); TRIPLE PHOSPHATE CRYSTALS,UR FEW (NS); WBC,URINE >100 (0-5)
[2024-05-19] MEDS: Ciprofloxacin 500 MG Tab PO ONE (19:40)
== END 2024-05-19 19:46 | disposition home or self-care (01) ==
LOC: FB.ED 17:55
DX: T83.038A Leakage of other urinary catheter, initial encounter (principal); N39.0 Urinary tract infection, site not specified; I11.0 Hypertensive heart disease with heart failure; I50.9 Heart failure, unspecified; I48.91 Unspecified atrial fibrillation; J44.9 Chronic obstructive pulmonary disease, unspecified; Z88.6 Allergy status to analgesic agent; Z79.899 Other long term (current) drug therapy; Z79.01 Long term (current) use of anticoagulants; Y73.2 Prosthetic and other implants, materials and accessory gastroenterology and urology devices associated with adverse incidents
CPT/HCPCS: 51705; 81001; 87086; 87088; 87186; 99283; A9270-GY

== ENCOUNTER 2024-07-22 20:00 | Emergency (ER) | payer MEDICARE, OTHER ==
[2024-07-22 21:43] LABS: BILIRUBIN,URINE NEGATIVE (NEGATIVE); GLUCOSE,URINE NORMAL (NORMAL); KETONES,URINE NEGATIVE (NEGATIVE); LEUKOCYTE ESTERASE,URINE LARGE (NEGATIVE); NITRITE,URINE NEGATIVE (NEGATIVE); OCCULT BLOOD,URINE NEGATIVE (NEGATIVE); PROTEIN,URINE NEGATIVE (NEGATIVE); UROBILINOGEN,URINE NORMAL (NEGATIVE)
[2024-07-22 21:44] LABS: APPEARANCE,URINE SLIGHTLY CLOUDY (CLEAR); BACTERIA,URINE MODERATE (NS); COLOR,URINE YELLOW (YELLOW); RBC,URINE 0-5 (0-5); SQUAMOUS EPITHELIAL CELLS,UR FEW (NS,R,O); WBC,URINE 20-30 (0-5)
[2024-07-22] MEDS: Amoxicillin/Clavulanate K 875-125 MG Tab PO ONE (22:29)
[2024-07-22 23:13] VITALS: BP 111/77; PULSE 93
== END 2024-07-22 22:46 | disposition home or self-care (01) ==
LOC: FB.ED 20:00
DX: T83.010A Breakdown (mechanical) of cystostomy catheter, initial encounter (principal); N39.0 Urinary tract infection, site not specified; I11.0 Hypertensive heart disease with heart failure; I50.9 Heart failure, unspecified; I48.91 Unspecified atrial fibrillation; J44.9 Chronic obstructive pulmonary disease, unspecified; F17.200 Nicotine dependence, unspecified, uncomplicated; Z79.01 Long term (current) use of anticoagulants; Z79.899 Other long term (current) drug therapy; Z88.8 Allergy status to other drugs, medicaments and biological substances
CPT/HCPCS: 51702; 81001; 87086; 99284; A9270

== ENCOUNTER 2024-09-07 12:04 | Emergency (ER) | payer MEDICARE, MEDICAID ==
[2024-09-07] MEDS ORDERED: Sulfamethoxazole/Trimethoprim 800-160 MG Tab PO ONE (12:05)
[2024-09-07 12:35] LABS: BASOPHILS ABSOLUTE AUTO 0.1 x10-3/uL (0.0-0.3); BASOPHILS PERCENT AUTO 1.5 % (0.3-3.8); EOSINOPHILS ABSOLUTE AUTO 0.2 x10-3/uL (0.0-0.6); EOSINOPHILS PERCENT AUTO 1.6 % (0.1-6.8); HEMATOCRIT 45.4 % (38.3-50.1); HEMOGLOBIN 14.8 g/dL (12.9-17.7); LYMPHOCYTES ABSOLUTE AUTO 2.5 x10-3/uL (0.5-4.5); LYMPHOCYTES PERCENT AUTO 24.4 % (15.8-45.3); MEAN CORPUSCULAR HEMOGLOBIN 30.7 pg (27.0-33.3); MEAN CORPUSCULAR HGB CONC 32.6 g/dL (28.7-35.3); MEAN PLATELET VOLUME 13.2 fL (6.7-11.0); MONOCYTES ABSOLUTE AUTO 0.9 x10-3/uL (0.0-1.2); MONOCYTES PERCENT AUTO 9.2 % (5.5-15.2); NEUTROPHILS ABSOLUTE AUTO 6.4 x10-3/uL (1.7-6.9); NEUTROPHILS PERCENT AUTO 63.3 % (40.3-71.8); RED BLOOD CELL COUNT 4.83 x10(6)uL (3.90-5.90); WHITE BLOOD CELL COUNT,WBC 10.1 x10-3/uL (3.2-10.1)
[2024-09-07 12:37] LABS: BILIRUBIN,URINE NEGATIVE (NEGATIVE); GLUCOSE,URINE NORMAL (NORMAL); KETONES,URINE NEGATIVE (NEGATIVE); LEUKOCYTE ESTERASE,URINE SMALL (NEGATIVE); NITRITE,URINE NEGATIVE (NEGATIVE); OCCULT BLOOD,URINE NEGATIVE (NEGATIVE); PROTEIN,URINE NEGATIVE (NEGATIVE); UROBILINOGEN,URINE NORMAL (NEGATIVE)
[2024-09-07 12:38] LABS: AMORPHOUS SEDIMENT,URINE MODERATE; APPEARANCE,URINE CLOUDY (CLEAR); BACTERIA,URINE MANY (NS); COLOR,URINE YELLOW (YELLOW); RBC,URINE 0-5 (0-5); SQUAMOUS EPITHELIAL CELLS,UR FEW (NS,R,O)
[2024-09-07 12:39] VITALS: PULSE 88
[2024-09-07 12:43] LABS: BLOOD UREA NITROGEN,BUN 24 mg/dL (7-18); BUN/CREATININE RATIO 26.7 (9-20); CARBON DIOXIDE,CO2 35 mmol/L (21-32); CHLORIDE,CL 102 mmol/L (100-110); CREATININE 0.9 mg/dL (0.70-1.30); ESTIMATED GFR 87 mL/min (>60); GLUCOSE RANDOM 103 mg/dL (80-116); POTASSIUM,K 3.6 mmol/L (3.5-5.3); SODIUM,NA 143 mmol/L (135-145)
[2024-09-07 13:35] VITALS: BP 142/84
[2024-09-07 13:36] LABS: PLATELET COUNT,PLT 149 x10(3)uL (117-477)
== END 2024-09-07 13:30 | disposition home or self-care (01) ==
LOC: FB.ED 12:04
DX: N32.0 Bladder-neck obstruction (principal); R33.9 Retention of urine, unspecified; I11.0 Hypertensive heart disease with heart failure; J44.9 Chronic obstructive pulmonary disease, unspecified; I48.91 Unspecified atrial fibrillation; Z79.01 Long term (current) use of anticoagulants; Z79.899 Other long term (current) drug therapy; Z88.8 Allergy status to other drugs, medicaments and biological substances
CPT/HCPCS: 36415; 51705; 80048; 81001; 85025; 87086; 87088; 87186; 99283; 99284; A9270-GY

== ENCOUNTER 2024-11-26 11:23 | Emergency (ER) | payer MEDICARE, MEDICAID ==
[2024-11-26 12:00] VITALS: BP 132/84; PULSE 80
== END 2024-11-26 12:04 | disposition home or self-care (01) ==
LOC: FB.ED 11:23
DX: T83.010 Breakdown (mechanical) of cystostomy catheter (principal); I11.0 Hypertensive heart disease with heart failure; I50.9 Heart failure, unspecified; J44.9 Chronic obstructive pulmonary disease, unspecified; F17.210 Nicotine dependence, cigarettes, uncomplicated; Z79.899 Other long term (current) drug therapy; Z88.8 Allergy status to other drugs, medicaments and biological substances
CPT/HCPCS: 51702; 99282

== ENCOUNTER 2025-04-04 23:03 | Emergency (ER) | payer MEDICARE, MEDICAID ==
[2025-04-05 00:17] VITALS: BP 106/65; PULSE 96
== END 2025-04-05 00:08 | disposition home or self-care (01) ==
LOC: FB.ED 23:03
DX: I11.0 Hypertensive heart disease with heart failure (principal); I50.9 Heart failure, unspecified; I48.91 Unspecified atrial fibrillation; J44.9 Chronic obstructive pulmonary disease, unspecified; M19.90 Unspecified osteoarthritis, unspecified site; Z88.8 Allergy status to other drugs, medicaments and biological substances; Z79.899 Other long term (current) drug therapy; Z79.01 Long term (current) use of anticoagulants
CPT/HCPCS: 51705; 99283

== ENCOUNTER 2025-04-19 00:08 | Emergency (ER) | payer MEDICARE, MEDICAID ==
[2025-04-19 00:28] VITALS: BP 135/77; PULSE 93
== END 2025-04-19 00:47 | disposition home or self-care (01) ==
LOC: FB.ED 00:08
DX: T83.9XXA Unspecified complication of genitourinary prosthetic device, implant and graft, initial encounter (principal); I48.91 Unspecified atrial fibrillation; I10 Essential (primary) hypertension; J44.9 Chronic obstructive pulmonary disease, unspecified; Z88.8 Allergy status to other drugs, medicaments and biological substances; Z79.01 Long term (current) use of anticoagulants; Z79.899 Other long term (current) drug therapy
CPT/HCPCS: 51705; 99283

== ENCOUNTER 2025-06-04 15:29 | Emergency (ER) | payer MEDICARE, MEDICAID ==
[2025-06-04 16:04] VITALS: BP 118/81; PULSE 100
[2025-06-04 16:31] LABS: GLUCOSE,URINE NORMAL (NORMAL); OCCULT BLOOD,URINE LARGE (NEGATIVE)
[2025-06-04 16:40] LABS: APPEARANCE,URINE CLOUDY (CLEAR); COARSE GRANULAR CASTS,URINE OCCASIONAL (NS); SQUAMOUS EPITHELIAL CELLS,UR OCCASIONAL (NS,R,O); TRIPLE PHOSPHATE CRYSTALS,UR OCCASIONAL (NS)
== END 2025-06-04 17:01 | disposition home or self-care (01) ==
LOC: FB.ED 15:29 → FB.EDOUT 15:29 → EDSTATUS 15:55 → FB.ED 17:01
DX: T83.010A Breakdown (mechanical) of cystostomy catheter, initial encounter (principal); I11.0 Hypertensive heart disease with heart failure; I50.9 Heart failure, unspecified; Z88.8 Allergy status to other drugs, medicaments and biological substances; Z79.01 Long term (current) use of anticoagulants; Z79.899 Other long term (current) drug therapy
CPT/HCPCS: 51705; 81001; 87086; 87088; 87186; 99283

== ENCOUNTER 2025-10-17 10:17 | Emergency (ER) | payer MEDICARE, MEDICAID ==
[2025-10-17 14:33] VITALS: BP 148/98; PULSE 89
== END 2025-10-17 12:20 | disposition home or self-care (01) ==
LOC: FB.ED 10:17
DX: T83.090A Other mechanical complication of cystostomy catheter, initial encounter (principal); K59.01 Slow transit constipation; I11.0 Hypertensive heart disease with heart failure; I48.91 Unspecified atrial fibrillation; Z88.8 Allergy status to other drugs, medicaments and biological substances; Z79.899 Other long term (current) drug therapy
CPT/HCPCS: 51705; 99283; A9270-GY